=== PATIENT | female | born 1960 | race Caucasian/White ===

== ENCOUNTER 2020-04-20 10:18 | Outpatient (REF) | payer SELFPAY | END 2020-04-20 10:19 | disposition home or self-care (01) | LOC: HO.LAB 10:18 | PROVIDERS: Visit Provider Internal Medicine | DX: Z20.828 Contact with and (suspected) exposure to other viral communicable diseases (principal) | CPT/HCPCS: C9803; U0003 ==

== ENCOUNTER 2023-05-02 11:12 | Outpatient (AMB) | payer OTHER, SELFPAY ==
--- NOTE | 2023-05-02 11:22 | HO.NEPHOV_ITS ---
HPI HPI Comments History of Present Illness Details I had the privilege of seeing Fabiola in follow-up of her chronic kidney disease. She was accompanied by her daughter. She has history of cardiomyopathy and has an AICD in place. She had history of BRYANT when she had her AICD fired causing renal hypoperfusion. Her serum creatinine had gone back to baseline. She follows up with her slate roofer helper. She had been having stress incontinence. She denies any chest pain, shortness of breath, proximal nocturnal dyspnea, orthopnea, pedal edema, hematuria, dysuria, orthostatic symptoms, nausea, vomiting or diarrhea. She is compliant with her medications and diet. Her urine output is good. She follows up closely with her primary care physician and slate roofer helper. [facility] Medical History (Updated 05/02/23 @ 15:23 by Richar Rojas MD) Hyperkalemia Acute kidney injury Essential (primary) hypertension Chronic kidney disease, stage 3b Surgical History (Updated 05/02/23 @ 11:19 by Mari Brown MA) AICD (automatic cardioverter/defibrillator) present Family History Mother Heart disease Brother Heart disease Father Kidney disease Family/Other Kidney disease Social History (Updated 05/02/23 @ 11:30 by Mari Brown MA) Alcohol intake: never Patient Tobacco Use Status: Former Tobacco user Vital Signs 05/02/23 11:24 Height 5 ft 4 in Weight 260 lb BMI 44.6 BP 132/84 Blood Pressure Location Rt brachial Position Sitting Pulse 70 Pulse Source Pulse Oximeter Pulse Oximetry (%) 98 Oxygen Delivery Method Room Air Physical Exam Vital Signs: Last Vital Signs Pulse 70 05/02/23 11:24 BP 132/84 05/02/23 11:24 Pulse Ox 98 05/02/23 11:24 Oxygen Delivery Method Room Air 05/02/23 11:24 BMI result Body Mass Index 44.6 Const General: comfortable and no acute distress Orientation/consciousness: patient oriented x3 HEENT Head: Yes normocephalic Mouth: Normal oral and palatal mucosa present Eyes EOM: EOMs intact bilaterally Neck Neck: Yes supple Resp Auscultation: clear to auscultation bilaterally Cardio Jugular venous distension: no JVD Rate: regular rate GI Palpation (GI): Soft to palpation Auscultation: normal bowel sounds General: Yes no CVA tenderness Back/Spine/Pelvis Back: no CVA tenderness Skin General skin exam: no rashes or lesions noted Neuro General: patient oriented x3 and moves all extremities Extrem General: Yes no pedal edema Assessment & Plan Assessment & Plan (1) Chronic kidney disease, stage 3b: Code(s): N18.32 - Chronic kidney disease, stage 3b (2) Essential (primary) hypertension: Code(s): I10 - Essential (primary) hypertension (3) Hyperkalemia: Code(s): E87.5 - Hyperkalemia Plan Fabiola has stage IIIB CKD. She developed BRYANT which has resolved. She had myeloperoxidase antibody initially during her workup but was negative subsequently. Her blood pressure has been at goal. Her serum creatinine has been reasonably stable. She had fluctuation of his serum potassium but has not gone up recently. She needs to lose some weight. Her blood pressure is at goal on current medication regimen. She should be on a low-potassium diet. She should avoid nonsteroidal anti-inflammatory medications. I did not make any medication changes today. I ordered follow-up blood work. All questions answered. Time spent retrieving data, documentation and patient encounter 23 minutes. Follow-up given. Orders: Orders Complete Blood Count Auto Diff Today N18.32 - Chronic kidney disease, stage 3b Electrolytes Today N18.32 - Chronic kidney disease, stage 3b Calcium Today N18.32 - Chronic kidney disease, stage 3b Phosphorus Today N18.32 - Chronic kidney disease, stage 3b Vitamin D 25-OH Total Today N18.32 - Chronic kidney disease, stage 3b Ferritin Today N18.32 - Chronic kidney disease, stage 3b Blood Urea Nitrogen Today N18.32 - Chronic kidney disease, stage 3b Creatinine Today N18.32 - Chronic kidney disease, stage 3b Parathyroid Hormone Intact Today N18.32 - Chronic kidney disease, stage 3b IRON PROFILE Today N18.32 - Chronic kidney disease, stage 3b Coding Level of Care Code Est Pt Level 3 (68189) Diagnoses Chronic kidney disease, stage 3b N18.32 Essential (primary) hypertension I10 Hyperkalemia E87.5
[2023-05-02 11:24] VITALS: BP 132/84; PULSE 70; O2SAT 98; BMI 44.6
== END 2023-05-02 12:03 | disposition home or self-care (01) ==
PROVIDERS: PCP Physician Assistant; Visit Provider Internal Medicine Nephrology
DX: N18.32 Chronic kidney disease, stage 3b (principal); I10 Essential (primary) hypertension; E87.5 Hyperkalemia
CPT/HCPCS: 99213

== ENCOUNTER → 2023-05-02 11:12 | Outpatient (BNVA) | payer OTHER, SELFPAY | PROVIDERS: PCP Physician Assistant; Visit Provider Internal Medicine Nephrology | DX: I12.9 Hypertensive chronic kidney disease with stage 1 through stage 4 chronic kidney disease, or unspecified chronic kidney disease (principal); N18.32 Chronic kidney disease, stage 3b; E78.5 Hyperlipidemia, unspecified | CPT/HCPCS: 99212 ==

== ENCOUNTER 2023-08-28 13:05 | Outpatient (REF) | payer OTHER, SELFPAY ==
[2023-08-28 18:21] LABS: MANUAL DIFF FLAG NO
[2023-08-28 18:37] LABS: Basophils Absolute Auto 0.1 X10*3/uL (0.0-0.2); Eosinophils Absolute Auto 0.1 X10*3/uL (0.0-0.4); Eosinophils Percent Auto 2.4 % (0-4); Hematocrit 42.4 % (37.0-47.0); Hemoglobin 13.3 g/dl (12.0-16.0); Imm Gran Abs Auto 0.02 X10*3/uL (0.00-0.03); Imm Gran Pct Auto 0.3 % (0.0-0.4); Lymphocytes Absolute Auto 0.9 X10*3/uL (1.2-4.9); Lymphocytes Percent Auto 14.8 % (20-40); Mean Corpuscular HGB Conc 31.4 g/dl (31.0-35.0); Mean Corpuscular Hemoglobin 30.4 pg (27.0-33.0); Mean Platelet Volume 10.6 fL (9.4-12.3); Monocytes Absolute Auto 0.5 X10*3/uL (0.1-1.2); Monocytes Percent Auto 8.9 % (2-11); Neutrophils Absolute Auto 4.2 x10*3/uL (2.0-8.3); Neutrophils Percent Auto 72.6 % (45-73); Platelet Count 202 X10*3/uL (160-400); Red Blood Count 4.37 X10*6/uL (4.20-5.50); Red Cell Distribution Width 13.6 % (11.0-16.0); White Blood Count 5.8 X10*3/uL (4.8-10.8)
[2023-08-28 19:03] LABS: Anion Gap 9 (12-20); Blood Urea Nitrogen 29 mg/dL (9-16); Calcium 8.8 mg/dL (8.4-10.2); Carbon Dioxide 23 mmol/L (22-29); Chloride 111 mmol/L (96-108); Estimated Glomerular Filt Rate 24; Iron 98 mcg/dL (30-160); Percent Iron Saturation 30 % (15-50); Potassium 5.4 mmol/L (3.3-5.1); Sodium 138 mmol/L (135-145); Total Iron Binding Capacity 326 mcg/dL (228-428); Unsaturated Iron Binding 228 ug/dL
[2023-08-28 19:16] LABS: Ferritin 36 ng/mL (10-250); Vitamin D 25-OH Total 14.5 ng/mL (>30)
[2023-08-29 06:31] LABS: Parathyroid Hormone Intact 237.6 pg/mL (8.7-77.1)
== END 2023-08-28 13:06 | disposition home or self-care (01) ==
LOC: HO.HKASLDS 13:05
PROVIDERS: Visit Provider Internal Medicine Nephrology
DX: N18.32 Chronic kidney disease, stage 3b (principal)
CPT/HCPCS: 36415; 80051; 82306; 82310; 82565; 82728; 83540; 83970; 84100; 84520; 85025

== ENCOUNTER 2023-08-29 15:12 | Outpatient (AMB) | payer OTHER, SELFPAY ==
[2023-08-29 15:56] VITALS: BP 132/80; PULSE 70; O2SAT 97; BMI 46.9
--- NOTE | 2023-08-29 15:56 | HO.NEPHOV_ITS ---
HPI HPI Comments History of Present Illness Details I had the privilege of seeing Fabiola in follow-up of her chronic kidney disease. She has history of cardiomyopathy and has an AICD in place. She had history of BRYANT when she had her AICD fired causing renal hypoperfusion. Her serum creatinine had gone back to baseline. She follows up with her it field technician. She had been having stress incontinence. She denies any chest pain, shortness of breath, proximal nocturnal dyspnea, orthopnea, pedal edema, hematuria, dysuria, orthostatic symptoms, nausea, vomiting or diarrhea. She is compliant with her medications and diet. Her urine output is good. She follows up closely with her primary care physician and it field technician. [facility] Medical History (Updated 09/05/23 @ 21:20 by Richar Rojas MD) Hyperkalemia Acute kidney injury Essential (primary) hypertension Chronic kidney disease, stage 3b Surgical History AICD (automatic cardioverter/defibrillator) present Family History Mother Heart disease Brother Heart disease Father Kidney disease Family/Other Kidney disease Social History Alcohol intake: never Patient Tobacco Use Status: Former Tobacco user Vital Signs 08/29/23 15:56 Height 5 ft 4 in Weight 273 lb BMI 46.9 BP 132/80 Blood Pressure Location Rt brachial Position Sitting Pulse 70 Pulse Source Pulse Oximeter Pulse Oximetry (%) 97 Oxygen Delivery Method Room Air Physical Exam Vital Signs: Last Vital Signs Pulse 70 08/29/23 15:56 BP 132/80 08/29/23 15:56 Pulse Ox 97 08/29/23 15:56 Oxygen Delivery Method Room Air 08/29/23 15:56 BMI result Body Mass Index 46.9 Const General: comfortable and no acute distress Orientation/consciousness: patient oriented x3 HEENT Head: Yes normocephalic Mouth: Normal oral and palatal mucosa present Eyes EOM: EOMs intact bilaterally Neck Neck: Yes supple Resp Auscultation: clear to auscultation bilaterally Cardio Jugular venous distension: no JVD Rate: regular rate GI Palpation (GI): Soft to palpation Auscultation: normal bowel sounds General: Yes no CVA tenderness Back/Spine/Pelvis Back: no CVA tenderness Skin General skin exam: no rashes or lesions noted Neuro General: patient oriented x3 and moves all extremities Extrem General: Yes no pedal edema Assessment & Plan Assessment & Plan (1) Hyperkalemia: Code(s): E87.5 - Hyperkalemia (2) Essential (primary) hypertension: Code(s): I10 - Essential (primary) hypertension (3) Chronic kidney disease, stage 3b: Code(s): N18.32 - Chronic kidney disease, stage 3b (4) Secondary hyperparathyroidism (of renal origin): Code(s): N25.81 - Secondary hyperparathyroidism of renal origin (5) Vitamin D deficiency: Code(s): E55.9 - Vitamin D deficiency, unspecified Plan Fabiola has stage IIIB CKD. She had myeloperoxidase antibody initially during her workup but was negative subsequently. Her blood pressure has been at goal. Her serum creatinine has been reasonably stable. She had fluctuation of his serum potassium but has not gone up recently. She needs to lose some weight. Her blood pressure is at goal on current medication regimen. She should be on a low-potassium diet. She should avoid nonsteroidal anti-inflammatory medications. I started her on vitamin-D. She will need activated vitamin-D the near future. I encouraged her to maintain low-potassium diet. She may need Kayexalate once a week if her borderline hyperkalemia persists given history of recurrent cardiac arrhythmias. I did not make any other medication changes today. I ordered follow-up blood work. All questions answered. Orders: Orders Creatinine 08/29/23 E87.5 - Hyperkalemia, I10 - Essential (primary) hypertension, N18.32 - Chronic kidney disease, stage 3b Blood Urea Nitrogen 08/29/23 E87.5 - Hyperkalemia, I10 - Essential (primary) hypertension, N18.32 - Chronic kidney disease, stage 3b Electrolytes 08/29/23 E87.5 - Hyperkalemia, I10 - Essential (primary) hypertension, N18.32 - Chronic kidney disease, stage 3b Medications: New cholecalciferol (vitamin D3) 1,250 mcg PO QWEEK 4 caps 5RF Coding Level of Care Code Est Pt Level 4 (23467) Diagnoses Hyperkalemia E87.5 Essential (primary) hypertension I10 Chronic kidney disease, stage 3b N18.32 Secondary hyperparathyroidism (of renal origin) N25.81 Vitamin D deficiency E55.9 Results Reviewed Nephrology Results: Hgb 13.3 g/dl (12.0-16.0) 08/28/23 WBC 5.8 X10*3/uL (4.8-10.8) 08/28/23 Plt Count 202 X10*3/uL (160-400) 08/28/23 Sodium 138 mmol/L (135-145) 08/28/23 Potassium 5.4 mmol/L (3.3-5.1) H 08/28/23 Chloride 111 mmol/L (96-108) H 08/28/23 Carbon Dioxide 23 mmol/L (22-29) 08/28/23 BUN 29 mg/dL (9-16) H 08/28/23 Creatinine 2.11 mg/dL (0.5-1.4) H 08/28/23 Calcium 8.8 mg/dL (8.4-10.2) 08/28/23 Phosphorus 3.0 mg/dL (2.7-4.5) 08/28/23 PTH Intact 237.6 pg/mL (8.7-77.1) H 08/28/23
== END 2023-08-29 16:19 | disposition home or self-care (01) ==
LOC: HO.HKAS 15:13
PROVIDERS: PCP Physician Assistant; Visit Provider Internal Medicine Nephrology
DX: E87.5 Hyperkalemia (principal); I10 Essential (primary) hypertension; N18.32 Chronic kidney disease, stage 3b; N25.81 Secondary hyperparathyroidism of renal origin; E55.9 Vitamin D deficiency, unspecified
CPT/HCPCS: 99214

== ENCOUNTER → 2023-08-29 15:12 | Outpatient (BNVA) | payer OTHER, SELFPAY | PROVIDERS: PCP Physician Assistant; Visit Provider Internal Medicine Nephrology | DX: I10 Essential (primary) hypertension (principal); N18.32 Chronic kidney disease, stage 3b; N25.81 Secondary hyperparathyroidism of renal origin; E87.5 Hyperkalemia; E55.9 Vitamin D deficiency, unspecified; Z95.810 Presence of automatic (implantable) cardiac defibrillator | CPT/HCPCS: 99212 ==

== ENCOUNTER 2023-10-08 11:21 | Outpatient (REF) | payer OTHER, SELFPAY ==
[2023-10-08 19:10] LABS: Anion Gap 12 (12-20); Blood Urea Nitrogen 37 mg/dL (9-16); Carbon Dioxide 18 mmol/L (22-29); Chloride 116 mmol/L (96-108); Estimated Glomerular Filt Rate 20; Potassium 4.9 mmol/L (3.3-5.1); Sodium 141 mmol/L (135-145)
== END 2023-10-08 11:22 | disposition home or self-care (01) ==
LOC: HO.HKASLDS 11:21
PROVIDERS: Visit Provider Internal Medicine Nephrology
DX: E87.5 Hyperkalemia (principal); I12.9 Hypertensive chronic kidney disease with stage 1 through stage 4 chronic kidney disease, or unspecified chronic kidney disease; N18.32 Chronic kidney disease, stage 3b
CPT/HCPCS: 36415; 80051; 82565; 84520

== ENCOUNTER 2024-01-02 11:23 | Outpatient (AMB) | payer MEDICARE, SELFPAY ==
--- NOTE | 2024-01-02 11:50 | HO.NEPHOV_ITS ---
Vital Signs 01/02/24 11:51 Height 5 ft 4 in Weight 273 lb BMI 46.9 BP 110/74 Blood Pressure Location Lt brachial Position Sitting Pulse 70 Pulse Source Pulse Oximeter Pulse Oximetry (%) 95 Oxygen Delivery Method Room Air Intake Visit Reasons: CKD/ Conf w/daughter Back End Engineer Required: No Accompanied by: Self / Same As Patient Allergies codeine Allergy (Verified 01/02/24 11:53) Unknown gabapentin Allergy (Verified 01/02/24 11:53) Unknown isosorbide Allergy (Verified 01/02/24 11:53) Unknown lisinopril Allergy (Verified 01/02/24 11:53) Unknown oxycodone Allergy (Verified 01/02/24 11:53) Unknown HPI Comments Details: I had the privilege of seeing Fabiola in follow-up of her chronic kidney disease. She has history of cardiomyopathy and has an AICD in place. She had history of BRYANT when she had her AICD fired causing renal hypoperfusion. She follows up with her replanting machine crewman. She had been having stress incontinence. She denies any chest pain, shortness of breath, proximal nocturnal dyspnea, orthopnea, pedal edema, hematuria, dysuria, orthostatic symptoms, nausea, vomiting or diarrhea. She is compliant with her medications and diet. Her urine output is good. She follows up closely with her primary care physician and replanting machine crewman. [facility] Medical History (Updated 09/05/23 @ 21:20 by Richar Rojas MD) Hyperkalemia Acute kidney injury Essential (primary) hypertension Chronic kidney disease, stage 3b Surgical History AICD (automatic cardioverter/defibrillator) present Family History Mother Heart disease Brother Heart disease Father Kidney disease Family/Other Kidney disease Social History Alcohol intake: never Patient Tobacco Use Status: Former Tobacco user Review of Systems Const All systems reviewed & are unremarkable except as noted in HPI and below Physical Exam Vital Signs: Last Vital Signs Pulse 70 01/02/24 11:51 BP 110/74 01/02/24 11:51 Pulse Ox 95 01/02/24 11:51 Oxygen Delivery Method Room Air 01/02/24 11:51 BMI result Body Mass Index 46.9 Const General: comfortable and no acute distress Orientation/consciousness: patient oriented x3 HEENT Head: Yes normocephalic Mouth: Normal oral and palatal mucosa present Eyes EOM: EOMs intact bilaterally Neck Neck: Yes supple Resp Auscultation: clear to auscultation bilaterally Cardio Jugular venous distension: no JVD Rate: regular rate GI Palpation (GI): Soft to palpation Auscultation: normal bowel sounds General: Yes no CVA tenderness Back/Spine/Pelvis Back: no CVA tenderness Skin General skin exam: no rashes or lesions noted Neuro General: patient oriented x3 and moves all extremities Results Reviewed Nephrology Results: Hgb 13.3 g/dl (12.0-16.0) 08/28/23 WBC 5.8 X10*3/uL (4.8-10.8) 08/28/23 Plt Count 202 X10*3/uL (160-400) 08/28/23 Sodium 141 mmol/L (135-145) 10/08/23 Potassium 4.9 mmol/L (3.3-5.1) 10/08/23 Chloride 116 mmol/L (96-108) H 10/08/23 Carbon Dioxide 18 mmol/L (22-29) L 10/08/23 BUN 37 mg/dL (9-16) H 10/08/23 Creatinine 2.41 mg/dL (0.5-1.4) H 10/08/23 Calcium 8.8 mg/dL (8.4-10.2) 08/28/23 Phosphorus 3.0 mg/dL (2.7-4.5) 08/28/23 PTH Intact 237.6 pg/mL (8.7-77.1) H 08/28/23 Assessment & Plan Assessment & Plan (1) Vitamin D deficiency: Code(s): E55.9 - Vitamin D deficiency, unspecified Category: Medical (2) Secondary hyperparathyroidism (of renal origin): Code(s): N25.81 - Secondary hyperparathyroidism of renal origin Category: Medical (3) Hyperkalemia: Code(s): E87.5 - Hyperkalemia Category: Medical (4) Essential (primary) hypertension: Code(s): I10 - Essential (primary) hypertension Category: Medical (5) Chronic kidney disease, stage 3b: Code(s): N18.32 - Chronic kidney disease, stage 3b Category: Medical Plan Fabiola has stage IIIB CKD. She had myeloperoxidase antibody initially during her workup but was negative subsequently. Her blood pressure has been at goal. Her serum creatinine has been reasonably stable. She had fluctuation of his serum potassium but has not gone up recently. Repeat blood work ordered for today. She needs to lose some weight. Her blood pressure is at goal on current medication regimen. She should be on a low-potassium diet. She should avoid nonsteroidal anti-inflammatory medications. She is on vitamin-D. She will need activated vitamin-D the near future. I encouraged her to maintain low-potassium diet. She may need Kayexalate once a week if her borderline hyperkalemia persists given history of recurrent cardiac arrhythmias. I did not make any other medication changes today. All questions answered Orders: Orders Calcium 3 Months E55.9 - Vitamin D deficiency, unspecified, E87.5 - Hyperkalemia, I10 - Essential (primary) hypertension, N18.32 - Chronic kidney disease, stage 3b, N25.81 - Secondary hyperparathyroidism of renal origin Parathyroid Hormone Intact 3 Months E55.9 - Vitamin D deficiency, unspecified, E87.5 - Hyperkalemia, I10 - Essential (primary) hypertension, N18.32 - Chronic kidney disease, stage 3b, N25.81 - Secondary hyperparathyroidism of renal origin Vitamin D 25-OH Total 3 Months E55.9 - Vitamin D deficiency, unspecified, E87.5 - Hyperkalemia, I10 - Essential (primary) hypertension, N18.32 - Chronic kidney disease, stage 3b, N25.81 - Secondary hyperparathyroidism of renal origin Blood Urea Nitrogen Today E87.5 - Hyperkalemia, I10 - Essential (primary) hypertension, N18.32 - Chronic kidney disease, stage 3b Creatinine Today E87.5 - Hyperkalemia, I10 - Essential (primary) hypertension, N18.32 - Chronic kidney disease, stage 3b Electrolytes 3 Months E55.9 - Vitamin D deficiency, unspecified, E87.5 - Hyperkalemia, I10 - Essential (primary) hypertension, N18.32 - Chronic kidney disease, stage 3b, N25.81 - Secondary hyperparathyroidism of renal origin Blood Urea Nitrogen 3 Months E55.9 - Vitamin D deficiency, unspecified, E87.5 - Hyperkalemia, I10 - Essential (primary) hypertension, N18.32 - Chronic kidney disease, stage 3b, N25.81 - Secondary hyperparathyroidism of renal origin Creatinine 3 Months E55.9 - Vitamin D deficiency, unspecified, E87.5 - Hyperkalemia, I10 - Essential (primary) hypertension, N18.32 - Chronic kidney disease, stage 3b, N25.81 - Secondary hyperparathyroidism of renal origin Electrolytes Today E87.5 - Hyperkalemia, I10 - Essential (primary) hyperten claudia, N18.32 - Chronic kidney disease, stage 3b Coding Level of Care Code Est Pt Level 4 (08984) Diagnoses Vitamin D deficiency E55.9 Secondary hyperparathyroidism (of renal origin) N25.81 Hyperkalemia E87.5 Essential (primary) hypertension I10 Chronic kidney disease, stage 3b N18.32
[2024-01-02 11:51] VITALS: BP 110/74; PULSE 70; O2SAT 95; BMI 46.9
== END 2024-01-02 12:19 | disposition home or self-care (01) ==
PROVIDERS: PCP Physician Assistant; Visit Provider Internal Medicine Nephrology
DX: E55.9 Vitamin D deficiency, unspecified (principal); N25.81 Secondary hyperparathyroidism of renal origin; E87.5 Hyperkalemia; I10 Essential (primary) hypertension; N18.32 Chronic kidney disease, stage 3b
CPT/HCPCS: 99214

== ENCOUNTER → 2024-01-02 11:23 | Outpatient (BNVA) | payer MEDICARE, SELFPAY | PROVIDERS: PCP Physician Assistant; Visit Provider Internal Medicine Nephrology ==

== ENCOUNTER 2024-01-02 12:10 | Outpatient (REF) | payer MEDICARE, SELFPAY ==
[2024-01-02 18:12] LABS: Anion Gap 12 (12-20); Blood Urea Nitrogen 36 mg/dL (9-16); Carbon Dioxide 23 mmol/L (22-29); Chloride 111 mmol/L (96-108); Estimated Glomerular Filt Rate 19; Potassium 5.2 mmol/L (3.3-5.1); Sodium 141 mmol/L (135-145)
== END 2024-01-02 12:11 | disposition home or self-care (01) ==
LOC: HO.HKASLDS 12:10
PROVIDERS: Visit Provider Internal Medicine Nephrology
DX: I12.9 Hypertensive chronic kidney disease with stage 1 through stage 4 chronic kidney disease, or unspecified chronic kidney disease (principal); N18.32 Chronic kidney disease, stage 3b; E55.9 Vitamin D deficiency, unspecified; N25.81 Secondary hyperparathyroidism of renal origin; E87.5 Hyperkalemia
CPT/HCPCS: 36415; 80051; 82565; 84520; 99212

== ENCOUNTER 2024-04-23 14:04 | Outpatient (REF) | payer MEDICARE, SELFPAY ==
[2024-04-23 17:00] LABS: Anion Gap 12 (12-20); Blood Urea Nitrogen 48 mg/dL (9-16); Calcium 9.4 mg/dL (8.4-10.2); Carbon Dioxide 20 mmol/L (22-29); Chloride 113 mmol/L (96-108); Estimated Glomerular Filt Rate 20; Potassium 5.8 mmol/L (3.3-5.1); Sodium 139 mmol/L (135-145)
[2024-04-23 17:08] LABS: Vitamin D 25-OH Total 46.4 ng/mL (>30)
[2024-04-24 02:38] LABS: Parathyroid Hormone Intact 116.5 pg/mL (8.7-77.1)
== END 2024-04-23 14:05 | disposition home or self-care (01) ==
LOC: HO.HMGCLDS 14:04
PROVIDERS: PCP Physician Assistant; Visit Provider Internal Medicine Nephrology
DX: E55.9 Vitamin D deficiency, unspecified (principal); N25.81 Secondary hyperparathyroidism of renal origin; E87.5 Hyperkalemia; I12.9 Hypertensive chronic kidney disease with stage 1 through stage 4 chronic kidney disease, or unspecified chronic kidney disease; N18.32 Chronic kidney disease, stage 3b
CPT/HCPCS: 36415; 80051; 82306; 82310; 82565; 83970; 84520

== ENCOUNTER 2024-05-05 11:21 | Outpatient (AMB) | payer MEDICARE, SELFPAY ==
--- NOTE | 2024-05-05 11:38 | HO.NEPHOV_ITS ---
Vital Signs 05/05/24 11:39 Height 5 ft 4 in Weight 300 lb BMI 51.5 BP 118/72 Blood Pressure Location Lt brachial Position Sitting Pulse 70 Pulse Source Pulse Oximeter Pulse Oximetry (%) 96 Oxygen Delivery Method Room Air Intake Visit Reasons: CKD/ Conf Industrial Maintenance Electrician Required: No Accompanied by: Daughter Allergies codeine Allergy (Verified 05/05/24 11:39) Unknown gabapentin Allergy (Verified 05/05/24 11:39) Unknown isosorbide Allergy (Verified 05/05/24 11:39) Unknown lisinopril Allergy (Verified 05/05/24 11:39) Unknown oxycodone Allergy (Verified 05/05/24 11:39) Unknown HPI Comments Details: Fabiola in follow-up of her chronic kidney disease. She has history of ca rdiomyopathy and has an AICD in place. She had history of BRYANT when she had her AICD fired causing renal hypoperfusion. She follows up with her lobbyist. She had been having stress incontinence. She denies any chest pain, shortness of breath, proximal nocturnal dyspnea, orthopnea, pedal edema, hematuria, dysuria, orthostatic symptoms, nausea, vomiting or diarrhea. She is compliant with her medications and diet. Her urine output is good. Her renal functions are stable. She has been having hyperkalemia and is on K lowering medication. She follows up closely with her primary care physician and lobbyist. [facility] Medical History (Updated 09/05/23 @ 21:20 by Richar Rojas MD) Hyperkalemia Acute kidney injury Essential (primary) hypertension Chronic kidney disease, stage 3b Surgical History AICD (automatic cardioverter/defibrillator) present Family History Mother Heart disease Brother Heart disease Father Kidney disease Family/Other Kidney disease Social History Alcohol intake: never Patient Tobacco Use Status: Former Tobacco user Review of Systems Const All systems reviewed & are unremarkable except as noted in HPI and below Physical Exam Vital Signs: Last Vital Signs Pulse 70 05/05/24 11:39 BP 118/72 05/05/24 11:39 Pulse Ox 96 05/05/24 11:39 Oxygen Delivery Method Room Air 05/05/24 11:39 BMI result Body Mass Index 51.5 Const General: comfortable and no acute distress Orientation/consciousness: patient oriented x3 HEENT Head: Yes normocephalic Mouth: Normal oral and palatal mucosa present Eyes EOM: EOMs intact bilaterally Neck Neck: Yes supple Resp Auscultation: clear to auscultation bilaterally Cardio Jugular venous distension: no JVD Rate: regular rate GI Palpation (GI): Soft to palpation Auscultation: normal bowel sounds General: Yes no CVA tenderness Back/Spine/Pelvis Back: no CVA tenderness Skin General skin exam: no rashes or lesions noted Neuro General: patient oriented x3 and moves all extremities Extrem General: Yes no pedal edema Results Reviewed Nephrology Results: Hgb 13.3 g/dl (12.0-16.0) 08/28/23 WBC 5.8 X10*3/uL (4.8-10.8) 08/28/23 Plt Count 202 X10*3/uL (160-400) 08/28/23 Sodium 139 mmol/L (135-145) 04/23/24 Potassium 5.8 mmol/L (3.3-5.1) H 04/23/24 Chloride 113 mmol/L (96-108) H 04/23/24 Carbon Dioxide 20 mmol/L (22-29) L 04/23/24 BUN 48 mg/dL (9-16) H 04/23/24 Creatinine 2.39 mg/dL (0.5-1.4) H 04/23/24 Calcium 9.4 mg/dL (8.4-10.2) 04/23/24 Phosphorus 3.0 mg/dL (2.7-4.5) 08/28/23 PTH Intact 116.5 pg/mL (8.7-77.1) H 04/23/24 Assessment & Plan Assessment & Plan (1) Chronic kidney disease, stage 3b: Code(s): N18.32 - Chronic kidney disease, stage 3b Category: Medical (2) Essential (primary) hypertension: Code(s): I10 - Essential (primary) hypertension Category: Medical (3) Hyperkalemia: Code(s): E87.5 - Hyperkalemia Category: Medical (4) Secondary hyperparathyroidism (of renal origin): Code(s): N25.81 - Secondary hyperparathyroidism of renal origin Category: Medical Plan Fabiola has stage IIIB CKD. She had myeloperoxidase antibody initially during her workup but was negative subsequently. Her blood pressure has been at goal. Her serum creatinine has been reasonably stable. She had fluctuation of his serum potassium but has gone up recently. She should continue kionex once a week and should remain on low K diet. She needs to lose some weight. Her blood pressure is at goal on current medication regimen. She should be on a low- potassium diet. She should avoid nonsteroidal anti-inflammatory medications. She is on vitamin-D. She will need activated vitamin-D the near future. I did not make any other medication changes today. All questions answered Orders: Orders Creatinine 2 Months E87.5 - Hyperkalemia, I10 - Essential (primary) hypertension, N18.32 - Chronic kidney disease, stage 3b, N25.81 - Secondary hyperparathyroidism of renal origin Blood Urea Nitrogen 2 Months E87.5 - Hyperkalemia, I10 - Essential (primary) hypertension, N18.32 - Chronic kidney disease, stage 3b, N25.81 - Secondary hyperparathyroidism of renal origin Electrolytes 1 Month E87.5 - Hyperkalemia, N18.32 - Chronic kidney disease, stage 3b Blood Urea Nitrogen 1 Month E87.5 - Hyperkalemia, N18.32 - Chronic kidney disease, stage 3b Electrolytes 2 Months E87.5 - Hyperkalemia, I10 - Essential (primary) hypertension, N18.32 - Chronic kidney disease, stage 3b, N25.81 - Secondary hyperparathyroidism of renal origin Creatinine 1 Month E87.5 - Hyperkalemia, N18.32 - Chronic kidney disease, stage 3b Coding Level of Care Code Est Pt Level 4 (52941) Diagnoses Chronic kidney disease, stage 3b N18.32 Essential (primary) hypertension I10 Hyperkalemia E87.5 Secondary hyperparathyroidism (of renal origin) N25.81
[2024-05-05 11:39] VITALS: BP 118/72; PULSE 70; O2SAT 96; BMI 51.5
== END 2024-05-05 12:13 | disposition home or self-care (01) ==
PROVIDERS: PCP Physician Assistant; Visit Provider Internal Medicine Nephrology
DX: N18.32 Chronic kidney disease, stage 3b (principal); I10 Essential (primary) hypertension; E87.5 Hyperkalemia; N25.81 Secondary hyperparathyroidism of renal origin
CPT/HCPCS: 99214

== ENCOUNTER → 2024-05-05 11:21 | Outpatient (BNVA) | payer MEDICARE, SELFPAY | PROVIDERS: PCP Physician Assistant; Visit Provider Internal Medicine Nephrology | DX: I12.9 Hypertensive chronic kidney disease with stage 1 through stage 4 chronic kidney disease, or unspecified chronic kidney disease (principal); N18.32 Chronic kidney disease, stage 3b; E87.5 Hyperkalemia; N17.9 Acute kidney failure, unspecified; N25.81 Secondary hyperparathyroidism of renal origin; Z95.810 Presence of automatic (implantable) cardiac defibrillator | CPT/HCPCS: 99212 ==

== ENCOUNTER 2024-07-22 10:14 | Outpatient (REF) | payer MEDICARE, SELFPAY ==
--- OUTSIDE RECORDS SUMMARY | 2024-07-22 10:45 | XMS_ITS | Encounter Summary ---
Author Organization [facility] Address [address] [place] [address] Care Team Providers Care Route Driver Name Role Phone Nilay Marquez Primary Care Provider [phone] Encounter Details Date Type Department Care Team (Late st Contact Info) Description 06/30/2024 11:25 AM EST Ancillary Procedure [facility] [address] [facility] [address] [place] [phone] Social History Tobacco Use Types Packs/Day Years Used Date Smoking Tobacco: Former Cigarettes Smokeless Tobacco: Never Alcohol Use Standard Drinks/Week Comments Yes 0 (1 standard drink = 0.6 oz pur e alcohol) Comments Unknown Sex and Gender Information Value Date Recorded Sex Assigned at Not on file Legal Sex Female 10:44 AM EST Gender Identity Not on file Sexual Orientation Not on file documented as of this encounter Plan of Treatment Upcoming Encounters Date Type Department Care Team (Late st Contact Info) Description 10/21/2024 11:00 AM EDT Ancillary Procedure [facility] [address] [facility] [address] [place] [address] 11/13/2024 10:30 AM EDT Office Visit Pulmonolgy - [place] 175 [facility] 200 [place] [phone] Marguerite Jimenez NP 175 [facility] 200 [place] [address] documented as of this encounter Procedures Procedure Name Priority Date/Time Associated Diagnosis Comments CARDIAC DEVICE CHECK- REMOTE- MURJ Routine 06/30/2024 11:21 AM EST documented in this encounter Results * Cardiac device check - Remote- MURJ (06/30/2024 11:21 AM EST) Date Time Interrogation Session [id number] CV DEVICE CHECK Type Interrogation Session Remote Scheduled CV DEVICE CHECK Implantable Pulse Generator Inclusion Special Educator [employer] CV DEVICE CHECK Implantable Pulse Generator Type ICD CV DEVICE CHECK Implantable Pulse Generator Model [id number] Lawrence(TM) CV DEVICE CHECK Implantable Pulse Generator Serial Number [id number] CV DEVICE CHECK Implantable Pulse Generator Implant Date [id number] CV DEVICE CHECK Battery Remaining Percentage 35.00 CV DEVICE CHECK Battery Remaining Longevity 32.0 CV DEVICE CHECK Battery Voltage 2.950 CV D EVICE CHECK Battery SALESPERSON [employer] [place] Trigger 2.620 CV DEVICE CHECK Battery Status Middle of Service CV DEVICE CHECK Capacitor Charge Time 8.400 CV DEVICE CHECK Dez Statistic RA Percent Paced 96.00 CV DEVICE CHECK Dez Statistic RV Percent Paced 1.00 CV DEVICE CHECK Atrial Tachy Statistic AT/AF [place] Percent 1.00 CV DEVICE CHECK Lead Channel Sensing Intrinsic Amplitude 3.300 CV DEVICE CHECK Lead Channel Setting Sensing Sensitivity 0.30 CV DEVICE CHECK Lead Channel Impedance Value 350 CV DEVICE CHECK Lead Channel Pacing Threshold Amplitude 0.875 CV DEVICE CHECK Lead Channel Pacing Threshold Pulse Width 0.5 CV DEVICE CHECK Lead Channel RA Pacing Threshold Date 2024-06-27 CV DEVICE CHECK Lead Channel Setting Pacing Amplitude 1.875 CV DEVICE CHECK Lead Channel Setting Pacing Pulse Width 0.5 CV DEVICE CHECK Lead Channel Sensing Intrinsic Amplitude 12.000 CV DEVICE CHECK Lead Channel Setting Sensing Sensitivity 0.50 CV DEVICE CHECK Lead Channel Impedance Value 390 CV DEVICE CHECK Lead Channel Pacing Threshold Amplitude 1.000 CV DEVICE CHECK Lead Channel Pacing Threshold Pulse Width 0.5 CV DEVICE CHECK Lead Channel RV Pacing Threshold Date 2024-06-27 CV DEVICE CHECK Lead Channel Setting Pacing Amplitude 1.250 CV DEVICE CHECK Lead Channel Setting Pacing Pulse Width 0.5 CV DEVICE CHECK Dez Setting Mode (NBG Code) DDDR CV DEVICE CHECK Dez Setting Lower Rate Limit 70 CV DEVICE CHECK Dez Setting AT Mode Switch Rate 180 CV DEVICE CHECK Dez Setting Maximum Tracking Rate 130 CV DEVICE CHECK Dez Setting Maximum Sensor Rate 130 CV DEVICE CHECK Dez Setting PAV Delay 200 CV DEVICE CHECK Dez Setting RONALD Delay 150 CV DEVICE CHECK Therapy Statistic Recent Shocks Delivered 0 CV DEVICE CHECK Therapy Statistic Recent Shocks Aborted 0 CV DEVICE CHECK Therapy Statistic Recent ATP Delivered 5 CV DEVICE CHECK Shock Measured Impedance 86 CV DEVICE CHECK Zone Setting Type Category VT CV DEVICE CHECK Rate 150 CV DEVICE CHECK Therapies 3 x Burst+Scan,25.0J, 36.0J,40.0J x 2 CV DEVICE CHECK Zone Setting Status On CV DEVICE CHECK Zone ID 1 CV DEVICE CHECK Zone Setting Type Category VT CV DEVICE CHECK Rate 182 CV DEVICE CHECK Therapies 3 x Burst+Scan,25.0J, 36.0J,40.0J x 2 CV DEVICE CHECK Zone Setting Status On CV DEVICE CHECK Zone ID 2 CV DEVICE CHECK Zone Setting Type Category VF CV DEVICE CHECK Rate 214 CV DEVICE CHECK Therapies 36.0J,36.0J,40.0J x 4 CV DEVICE CHECK Zone Setting Status On CV DEVICE CHECK Zone ID 3 CV DEVICE CHECK Date of Service 2024-08-28 CV DEVICE CHECK Anatomical Region Laterality Modality Device Interroga tion 06/27/2024 2:00 AM EST Impressions 06/30/2024 11:18 AM EST Appropriate VT Therapy: Successful * Stored EGMs are consistent with or suggestive of Ventricular Tachycardia * Total episodes: 1 new * Number of ATP therapy: 1 new VT with ATP 38 beats * Number of shocks delivered: 0 Additional Notes: Noted on 06/25/24 previous episode of VT Narrative Procedure Note Ivelisse Simons PA - 06/30/2024 IMPRESSION: Appropriate VT Therapy: Successful * Stored EGMs are consistent with or suggestive of VentricularTachycardia * Total episodes: 1 new * Number of ATP therapy: 1 new VT with ATP 38 beats * Number of shocks delivered: 0 Additional Notes: Noted on 06/25/24 previous episode of VT Ivelisse GONZALEZ CV IMPLANTABLE CARDIAC DEVICE IL OCEDURES Final Result documented in this encounter Visit Diagnoses Not on filedocumented in this encounter Care Teams Route Driver Relationship Specialty Start Date End Date Nilay Marquez PA [address] [place] [address] PCP - General Internal Medicine 04/10/21 documented as of this encounter
--- OUTSIDE RECORDS SUMMARY | 2024-07-22 10:45 | XMS_ITS | Clinical Summary ---
Author Organization [facility] Address [address] [place] [address] Phone Care Team Providers Care Bank Accountant Name Role Phone Nilay Marquez MD Primary Care Provider [phone] Allergies Active Allergy Reactions Criticality Noted Date Comments Codeine Nausea And Vomiting,Other (see comments) High 03/23/2020 Gabapentin Other (see comments) Low 08/10/2021 Other reaction(s): Makes bones hurt Isosorbide Nitrate Other (see comments) Medium 022 Lisinopril 07/10/2021 Warning Oxycodone 08/10/2021 Other reaction(s): vomiting Medications atorvastatin (LIPITOR) 40 MG tablet Take 1 tablet by mouth 1 (one) time each day Active omeprazole (PriLOSEC) [address] capsule Take 1 capsule by mouth 1 (one) time each day 9 Active Symbicort 80-4.5 MCG/ACT inhaler if needed 1 Active albuterol HFA (PROVENTIL HFA;VENTOLIN HFA) 108 (90 Base) MCG/ACT inhaler Inhale 2 puffs 1 Active mexiletine (MEXITIL) 200 MG capsule Take 400 mg by mouth in the morning and 400 mg in the evening. 1 Active hydrALAZINE 50 MG tablet Take 50 mg by mouth in the morning and 50 mg at noon and 50 mg in the evening. 2 Active levothyroxine (SYNTHROID, LEVOTHROID) 125 MCG tablet Take 250 mcg by mouth 1 (one) time each day 2 Active meclizine (ANTIVERT) 25 MG tablet Take 1 tablet by mouth if needed 2 Active LORazepam (ATIVAN) 0.5 MG tablet Take 1 tablet by mouth if needed 2 Active furosemide (LASIX) 20 MG tablet if needed 2 Active ondansetron (ZOFRAN) 4 MG tablet Take 4 mg by mouth every 8 (eight) hours if needed for nausea or vomiting Active propranolol (INDERAL) 60 MG tablet Take 60 mg by mouth in the morning and 60 mg in the evening and 60 mg before bedtime. With 40mg . Active isosorbide mononitrate (IMDUR) 60 MG 24 hr tablet Take 60 mg by mouth 1 (one) time each day Do not crush or chew. 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 Stage 3b chronic kidney disease 03/27/2021 Hypertension 03/27/2021 Acute nontraumatic kidney injury 08/22/2020 Chronic kidney disease 08/22/2020 Overview (08/22/2020): Sees nephrology Hypertensive disorder 08/22/2020 Hypertensive renal disease 08/22/2020 Resolved Problems Problem Noted Date Diagnosed Date Resolved Date Chronic obstructive pulmonary disease 08/10/2021 08/10/2021 Heart failure with reduced ejection fraction 08/10/2021 History of cardiac arrhythmia 08/10/2021 08/10/2021 Hypothyroidism 08/10/2021 08/10/2021 Obstructive sleep apnea syndrome 08/10/2021 08/10/2021 Severe obesity 08/10/2021 08/10/2021 Hypercholesterolemia 08/22/2020 022 Osteoarthritis 08/22/2020 08/10/2021 Hyperkalemia 08/22/2020 11/22/2021 Allergic rhinitis 07/11/2020 11/22/2021 Immunizations Name Administration Dates Next Due Moderna SARS-COV-2 10/24/2020,09/26/2020 Family History Medical History Relation Comments Kidney disease Father Heart disease Sibling Relation Status Comments Father Mother Alive Sibling Social History Tobacco Use Types Packs/Day Years Used Date Smoking Tobacco: Former Smokeless Tobacco: Former Tobacco Cessation:Counseling Given: Not Answered Alcohol Use Standard Drinks/Week Comments Yes 0 (1 standard drink = 0.6 oz pure alcohol) Alcoholic Drinks/day: Occasional social drink Comments Unknown Sex and Gender Information Value Date Recorded Sex Assigned at Not on file Legal Sex Female 4:44 PM EST Gender Identity Not on file Sexual Orientation Not on file Last Filed Vital Signs Vital Sign Reading Time Taken Comments Blood Pressure 116/78 01/24/2023 4:23 PM EDT Pulse 69 01/24/2023 4:23 PM EDT Temperature - - Respiratory Rate - - Oxygen Saturation 96% 10/30/2022 4:56 PM EDT Inhaled Oxygen Concentration - - Weight 113 kg (250 lb) 01/24/2023 4:23 PM EDT Height 165.1 cm (5' 5 ) 12/22/2019 12:00 PM EDT Body Mass Index 41.6 12/22/2019 12:00 PM EDT Plan of Treatment Health Maintenance Due Date Last Done Comments Breast Cancer Screening 1960 Pneumococcal Vaccine: 65+ Ye ars (1 of 2 - PCV) 1966 Pneumococcal Vaccine: Pediat rics (0 to 5 Years) and At-Risk Patients (6 to 64 Years) (1 of 2 - PCV) 1966 Colorectal Cancer Screening: Annual FOBT 09/21/2007 Colorectal Cancer Screening: Colonoscopy 09/21/2007 Colorectal Cancer Screening: Sigmoidoscopy 09/21/2007 Influenza Vaccine (#1) 2024 Hepatitis B Vaccine Aged Out No longe r eligible based on patient's age to complete this topic Insurance [facility] MEDICAID [facility] Care Teams Bank Accountant Relationship Specialty Start Date End Date Nilay Marquez MD [address] [place] [id number] PCP - General Physician Clinical Trial Leader 08/22/20
--- OUTSIDE RECORDS SUMMARY | 2024-07-22 10:45 | XMS_ITS | Encounter Summary ---
Author Organization [facility] Address [address] [place] [address] Care Team Providers Care Diffusion Furnace Operator Name Role Phone Nilay Marquez Primary Care Provider [phone] Encounter Details Date Type Department Care Team (Late Contact Info) Description 07/02/2024 Telephone [facility] Cardiology [facility] [address] [facility] [address] [place] [phone] Marcie Singleton MA Social History Tobacco Use Types Packs/Day Years [...] on file documented as of this encounter Progress Notes * Marcie Singleton MA - 07/02/2024 12:32 PM EST Per Cheryl Moreira [facility] order entered. documented in this encounter Plan of Treatment Upcoming Encounters Date Type Department Care Team (Late st Contact Info) Description 10/21/2024 11:00 AM EDT Ancillary Procedure [facility] - [address] [place] [phone] 11/13/2024 10:30 AM EDT Office Visit Pulmonol - [place] [address] [facility] [address] [place] [phone] Marguerite Jimenez, KADEN 175 [facility] 200 [place] [address] Scheduled Orders Name Type Priority Associated Diagnoses Orde r Schedule Comprehensive metabolic panel Lab Routine HFrEF (heart failure with reduced ejection fraction) (CMS/[facility]) 1 Occurrences starting 07/02/2024 until 07/02/2025 documented as of this encounter Visit Diagnoses Diagnosis HFrEF (heart failure with reduced ejection fraction) (CMS/[facility]ER[facility])- Primary documented in this encounter Care Teams Diffusion Furnace Operator Relationship Specialty Start Date End Date Nilay Marquez PA [address] [place] [address] PCP - General Internal Medicine 04/10/21 documented as of this encounter
--- OUTSIDE RECORDS SUMMARY | 2024-07-22 10:45 | XMS_ITS | Encounter Summary ---
Author Organization [facility] Address [address] [place] [address] Care Team Providers Care Property Valuer Name Role Phone Nilay Marquez Primary Care Provider [phone] Encounter Details Date Type Department Care Team (Late st Contact Info) Description 06/29/2024 10:15 AM EST Lab Draw Station - [address] [place] [phone] Ventricular tachycardia (CMS/HCC); care home current use of amiodarone Social History Tobacco Use Types Packs/Day Years [...] Progress Notes * Marcie Singleton MA - 06/29/2024 10:15 AM EST CMP order entered. documented in this encounter Plan of Treatment Upcoming Encounters Date Type Department Care Team (Late st Contact Info) Description 10/21/2024 11:00 AM EDT Ancillary Procedure [facility] - [address] [place] [phone] 11/13/2024 10:30 AM EDT Office Visit Pulmonolgy - [place] 175 [facility] [address] [place] [phone] Marguerite Jimenez, KADEN 175 [facility] [address] [place] [address] documented as of this encounter Procedures Procedure Name Priority Date/Time Associated Diagnosis Comments THYROID STIMULATING HORMONE WITH REFLEX TO FREE T4 AND FREE T3 Routine 06/29/2024 10:12 AM EST termite treater current use of amiodarone MAGNESIUM Routine 06/29/2024 10:12 AM EST Ventricular tachycardia (CMS/HCC) COMPREHENSIVE METABOLIC PANEL Routine 06/29/2024 10:12 AM EST Ventricular tachycardia (CMS/HCC) termite treater current use of amiodarone documented in this encounter Results * Magnesium (06/29/2024 10:12 AM EST) Magnesium 2.4 1.9 - 2.6 mg/dL LAB CHEMISTRY METHOD 06/29/2024 3:52 PM EST [facility] Blood Venous blood specimen / Unknown Venipuncture / Unknown 06/29/2024 10:12 AM EST 06/29/2024 10:12 AM EST Cheryl Moreira CRANE OPERATOR CAB LAB BLOOD ORDERABLES Final R esult [facility] [address] [place] [address], * Thyroid stimulating hormone with reflex to free t4 and free t3 (06/29/2024 10:12 AM EST) TSH 1.26 0.40 - 4.00 mcIU/mL LAB CHEMISTRY METHOD 06/29/2024 3:59 PM EST [facility] Blood Venous blood specimen / Unknown Venipuncture / Unknown 06/29/2024 10:12 AM EST 06/29/2024 10:12 AM EST us Cheryl Moreira NP LAB BLOOD ORDERABLES Final R esult [facility] [address] [place] [address], [place] [phone] * (ABNORMAL) Comprehensive metabolic panel (06/29/2024 10:12 AM EST) Sodium 143 133 - 145 mmol/L LAB CHEMISTRY METHOD 06/29/2024 4:00 PM [facility] Potassium 5.0 3.5 - 5.5 mmol/L LAB CHEMISTRY METHOD 06/29/2024 4:00 PM [facility] Chloride 117(H) 96 - 110 mmol/L LAB CHEMISTRY METHOD 06/29/2024 4:00 PM [facility] CO2 22 21 - 32 mmol/L LAB CHEMISTRY METHOD 06/29/2024 4:00 PM [facility] Anion Gap 4 3 - 11 LAB CHEMISTRY METHOD 06/29/2024 4:00 PM [facility] Glucose 97 70 - 100 mg/dL LAB CHEMISTRY METHOD 06/29/2024 4:00 PM [facility] BUN 48(H) 5 - 25 mg/dL LAB CHEMISTRY METHOD 06/29/2024 4:00 PM [facility] Creatinine 2.86(H) 0.50 - 1.10 mg/dL LAB CHEMISTRY METHOD 06/29/2024 4:00 PM [facility] eGFR 18(L) >=60 mL/min/1. 73m2 LAB CHEMISTRY METHOD 06/29/2024 4:00 PM [facility] Comment:Calculation based on the??Chronic Kidney Disease Epidemiology Collaboration (CKD-EPI) equation refit??without adjustment for race. BUN/Creatinine Ratio 16.8 LAB CHEMISTRY METHOD 06/29/2024 4:00 PM [facility] Calcium 8.9 8.5 - 10.5 mg/dL LAB CHEMISTRY METHOD 06/29/2024 4:00 PM [facility] AST (SGOT) 65(H) 10 - 42 unit/L LAB CHEMISTRY METHOD 06/29/2024 4:00 PM [facility] ALT (SGPT) 199(H) 10 - 60 unit/L LAB CHEMISTRY METHOD 06/29/2024 4:00 PM [facility] Alkaline Phosphatase 85 42 - 121 unit/L LAB CHEMISTRY METHOD 06/29/2024 4:00 PM [facility] Total Protein 6.1 6.0 - 8.0 g/dL LAB CHEMISTRY METHOD 06/29/2024 4:00 PM [facility] Albumin 3.3 3.2 - 5.0 g/dL LAB CHEMISTRY METHOD 06/29/2024 4:00 PM [facility] Total Bilirubin 0.5 0.0 - 1.4 mg/dL LAB CHEMISTRY METHOD 06/29/2024 4:00 PM [facility] Blood Venous blood specimen / Unknown Venipuncture / Unknown 06/29/2024 10:12 AM EST 06/29/2024 10:12 AM EST Cheryl Moreira CRANE OPERATOR CAB LAB BLOOD ORDERABLES Final R esult [facility] [address] [place] [address], documented in this encounter Visit Diagnoses Diagnosis Ventricular tachycardia (CMS/HCC) Paroxysmal ventricular tachycardia care home current use of amiodarone documented in this encounter Care Teams Property Valuer Relationship Specialty Start Date End Date Nilay Marquez PA [address] [place] [address] PCP - General Internal Medicine 04/10/21 documented as of this encounter
--- OUTSIDE RECORDS SUMMARY | 2024-07-22 10:45 | XMS_ITS | Clinical Summary ---
Author Organization [address] [place] [address] Address [address] [place] [address] Phone Care Team Providers Care Medication Coordinator Name Role Phone Nilay Marquez Primary Care Provider [phone] Allergies Active Allergy Reactions Criticality Noted Date Comments Codeine Nausea And Vomiting 01/30/2021 Gabapentin Muscular Issues 01/30/2021 Isosorbide Nausea And Vomiting High 11/06/2021 CHEST PAIN Other reaction(s): Other (See Comments), Other (see comments), Unknown, Unknown/Patient and Family Unable to Define Isosorbide Dinitrate Nausea And Vomiting 2023 Lisinopril 07/10/2021 Warning Oxycodone 06/21/2021 Medications propranoloL (INDERAL) 40 mg tablet Take 1 tablet (40 mg total) by mouth. 3 Active propranoloL (INDERAL) 60 mg tablet Take 1 tablet (60 mg total) by mouth. 3 Active hydrALAZINE (APRESOLINE) 50 mg tablet Take 1 tablet (50 mg total) by mouth. 3 Active atorvastatin (LIPITOR) 40 mg tablet Take 1 tablet (40 mg total) by mouth. Active isosorbide mononitrate (IMDUR) 60 mg 24 hr tablet Take 1 tablet (60 mg total) by mouth 1 (one) time each day. 3 Active levothyroxine (SYNTHROID, LEVOTHROID) 175 mcg tablet Take 1 tablet (175 mcg total) by mouth 1 (one) time each day. 3 Active mexiletine (MEXITIL) 200 mg capsule Take 2 capsules (400 mg total) by mouth. 3 Active omeprazole (PriLOSEC) [address] capsule Take 1 capsule (40 mg total) by mouth. Active amiodarone (PACERONE) 200 mg tablet Take 1 tablet by mouth once daily 90 tablet 3 4 Active sodium polystyrene (KAYEXALATE) powder Take 30 g by mouth 1 (one) time. 4 Active Tylenol Extra Strength 500 mg tablet Take 2 tablets (1,000 mg total) by mouth every 8 (eight) hours if needed for moderate pain. Patient take 2 tab as needed for pain [id number] PRT 4 Active Active Problems Problem Noted Date Diagnosed Date History of ventricular tachycardia 08/02/2023 COPD type A 02/06/2023 Nocturnal hypoxia 08/04/2021 Overview (08/02/2023): Overnight oximetry on 07/23/2021 on NIV: 1. Lowest oxygen 81% 2. Oxygen level under 88% 6.5 minutes. 3. Basal oxygen 94%. No supplemnetal oxygen needed. HFrEF (heart failure with reduced ejection fract ion) 07/23/2021 Severe obesity 07/23/2021 Hypertension 06/21/2021 Non-ischemic cardiomyopathy 06/21/2021 Overview (08/02/2023): 04/06/21 Cath @ [facility] with Dr. Price - Findings consistent with non-ischemic cardiomyopathy of unclear chronicity and VT. Continue anti-rhythmic therapy and consider ICD. Syncope 06/21/2021 Ventricular tachycardia 06/21/2021 Overview (08/02/2023): 04/21/21 Device Implant @ [facility] with Dr. Parker - [employer] Dual Chamber AICD Anxiety 01/30/2021 CKD (chronic kidney disease) 01/30/2021 High cholesterol 01/30/2021 Hypothyroidism 01/30/2021 Osteoarthritis of both knees 01/30/2021 Encounters Date Type Department Care Team Description 07/02/2024 Telephone [facility] Cardiology [facility] [address] [place] [address] Marcie Singleton MA 06/30/2024 11:25 AM EST Ancillary Procedure [facility] Cardiology [facility] [address] [place] [address] 06/29/2024 10:15 AM EST Lab Draw Station - [address] [place] [address] Ventricular tachycardia (CMS/HCC); continuous churn buttermaker current use of amiodarone 06/25/2024 4:25 PM EST Ancillary Procedure [facility] Cardiology [facility] [address] [place] [address] 06/25/2024 Telephone [facility] Cardiology [facility] [address] [place] [address] Cheryl Moreira NP 06/12/2024 11:35 AM EST Ancillary Procedure [facility] Cardiology [facility] [address] [place] [address] 06/11/2024 Telephone [facility] Cardiology [facility] [address] [place] [address] Cheryl Moreira NP 06/02/2024 8:10 AM EST Ancillary Procedure [facility] Cardiology [facility] [address] [place] [address] 06/01/2024 Telephone [facility]olgy - [place] [address] [place] [address] Mei Shea [place] DME request (CPAP supplies/) 05/20/2024 3:20 PM EST Ancillary Procedure [facility] Cardiology [facility] [address] [place] [address] 05/15/2024 10:10 AM EST Office Visit Pulmonolgy - [place] [address] [place] [address] Marguerite Jimenez NP Pulmonary emphysema, unspecified emphysema type (CMS/HCC) (Primary Dx); Nocturnal hypoxia; Non-ischemic cardiomyopathy (CMS/HCC); HFrEF (heart failure with reduced ejection fraction) (CMS/HCC); Severe obesity (CMS/HCC) 04/23/2024 12:40 PM EST Office Visit [facility] - [address] [facility] [address] [place] [phone] Cheryl Moreira NP Ventricular tachycardia (CMS/HCC) (Primary Dx); continuous churn buttermaker current use of amiodarone; HFrEF (heart failure with reduced ejection fraction) (CMS/HCC) from Last 3 Months Surgical History Surgery Date Site/Laterality Comments CARDIAC CATHETERIZATION Medical History Medical History Date Comments Anxiety Hyperlipidemia Hypercapnic respiratory failure (CMS/HCC) Hypothyroidism Syncope Cardiomyopathy (CMS/HCC) Hypertension Ventricular tachycardia (CMS/HCC) Chronic kidney disease CHF (congestive heart failure) (CMS/HCC) Family History Medical History Relation Name Comments Heart attack Mother Relation Name Status Comments Mother Social History Tobacco Use Types Packs/Day Years Used Date Smoking Tobacco: Former Cigarettes Smokeless Tobacco: Never Tobacco Cessation:Counseling Given: Not Answered Alcohol Use Standard Drinks/Week Comments Yes 0 (1 standard drink = 0.6 oz pur e alcohol) Comments Unknown Sex and Gender Information Value Date Recorded Sex Assigned at Not on file Legal Sex Female 10:44 AM EST Gender Identity Not on file Sexual Orientation Not on file Obstetrics History Last Filed Vital Signs Vital Sign Reading Time Taken Comments Blood Pressure 138/76 05/15/2024 10:21 AM EST Pulse 70 05/15/2024 10:21 AM EST Temperature 36.2 ??C (97.1 ??F) 05/15/2024 1 0:21 AM EST Respiratory Rate 18 05/15/2024 10:2 1 AM EST Oxygen Saturation 94% 05/15/2024 10: 21 AM EST Inhaled Oxygen Concentration - - Weight 136 kg (300 lb) 04/23/2024 12:42 PM EST pt refused scale, told me 300lbs Height 162.6 cm (5' 4 ) 04/23/2024 12:4 2 PM EST Body Mass Index 51.49 04/23/2024 12:42 PM EST Plan of Treatment Upcoming Encounters Date Type Department Care Team (Late st Contact Info) Description 10/21/2024 11:00 AM EDT Ancillary Procedure [facility] - [address] [place] [address] 11/13/2024 10:30 AM EDT Office Visit Pulmonolgy - [place] [address] [facility] [address] [place] [phone] Marguerite Jimenez, KADEN [address] [facility] [address] [place] [address] Health Maintenance Due Date Last Done Comments Breast Cancer Screening 1960 DTaP,Tdap,and Td Vaccines (1 - Tdap) 1977 Pneumococcal Vaccine: 50+ Years (1 of 2 - PCV) 1977 Pneumococcal Vaccine: Pediatrics (0 to 5 Years) and At-Risk Patients (6 to 64 Years) (1 of 2 - PCV) 1977 Cervical Cancer Screening: Pap Smear 09/21/1979 Zoster Vaccines (1 of 2) 2008 RSV Immunization Patients 60+ Years Old (1 - Risk 60-74 years 1-dose series) 2018 COVID-19 Vaccine (3 - Moderna risk series) 11/21/2020 10/24/2020, 09/26/2020 Colorectal Cancer Screening: Colonoscopy 05/12/2022 Medicare Annual Wellness Visit 05/12/2022 Osteoporosis Screening (Bone Density Screening) 05/12/2022 Social Influencers of Health Screening 05/12/2022 Falls Risk Assessment 09/21/2023 Influenza Vaccine (#1) 2024 Depression Screening 05/19/2025 05/19/2024 Hypertension/CHF/CAD Annual BMP Blood Test 06/29/2025 06/29/2024, 03/06/2023, 01/15/2023 Cholesterol Screening (Lipid Panel) 05/19/2029 05/19/2024, 05/19/2024, 01/15/2023, Additional history exists Hepatitis C Screening Completed 07/26/2020 HIB Vaccines Aged Out No longer eligi ble based on patient's age to complete this topic HPV Vaccines Aged Out No longer eligi ble based on patient's age to complete this topic Hepatitis A Vaccines Aged Out No long er eligible based on patient's age to complete this topic Hepatitis B Vaccines Aged Out No long er eligible based on patient's age to complete this topic IPV Vaccines Aged Out No longer eligi ble based on patient's age to complete this topic MMR Vaccines Aged Out No longer eligi ble based on patient's age to complete this topic Meningococcal ACWY Vaccine Aged Out N o longer eligible based on patient's age to complete this topic Meningococcal B Vacine Aged Out No lo nger eligible based on patient's age to complete this topic RSV Immunization Patients Under 20 months Aged Out No longer eligible based on patient's age to complete this topic Varicella Vaccines Aged Out No longer eligible based on patient's age to complete this topic Medical Devices Implanted Type Area Auxiliary Equipment Operator Device Identifier Shelf Expiration Date Model / Serial / Lot Abbt-Stju [id number] Lawrence(Tm) [id number] Implanted:04/03 (Quantity not on file) Cardiac ICD [facility] [id number] LAWRENCE(DOROTHY ) DR Figueroa [id number] / Procedures Procedure Name Priority Date/Time Associated Diagnosis Comments CARDIAC DEVICE CHECK- REMOTE- MURJ Routine 06/30/2024 11:21 AM EST MAGNESIUM Routine 06/29/2024 10:12 AM EST Ventricular tachycardia (CMS/HCC) THYROID STIMULATING HORMONE WITH REFLEX TO FREE T4 AND FREE T3 Routine 06/29/2024 10:12 AM EST FDC current use of amiodarone COMPREHENSIVE METABOLIC PANEL Routine 06/29/2024 10:12 AM EST Ventricular tachycardia (CMS/HCC) [facility]DC current use of amiodarone CARDIAC DEVICE CHECK- REMOTE- MURJ Routine 06/25/2024 4:21 PM EST CARDIAC DEVICE CHECK- REMOTE- MURJ Routine 06/12/2024 11:33 AM EST CARDIAC DEVICE CHECK- REMOTE- MURJ Routine 06/02/2024 8:09 AM EST CARDIAC DEVICE CHECK- REMOTE- MURJ Routine 05/20/2024 3:19 PM EST ECG 12-LEAD Routine 04/23/2024 1:28 PM EST Ventricular tachycardia (CMS/HCC) EXTERNAL CLINICAL LAB Routine 04/23/2024 12:38 PM EST LIPID PANEL Routine 01/15/2023 HEPATITIS C SCREENING Routine 07/26/2020 from Last 3 Months or Most Recently Relevant to Health Maintenance Results * Cardiac device check - Remote- MURJ (06/30/2024 11:21 AM EST) Only the most recent of5 resultswithin the time period is included. Date Time Interrogation Session [id number] CV DEVICE CHECK Type Interrogation Session Remote Scheduled CV DEVICE CHECK Implantable Pulse Generator Auxiliary Equipment Operator [employer] CV DEVICE CHECK Implantable Pulse Generator Type ICD CV DEVICE CHECK Implantable Pulse Generator Model [id number] Lawrence MEMBRENO (TM) CV DEVICE CHECK Implantable Pulse Generator Serial Number [id number] CV DEVICE CHECK Implantable Pulse Generator Implant Date [id number] CV DEVICE CHECK Battery Remaining Percentage 35.00 CV DEVICE CHECK Battery Remaining Longevity 32.0 CV DEVICE CHECK Battery Voltage 2.950 CV D EVICE CHECK Battery SENIOR ACCOUNTING CLERK Trigger 2.620 CV DEVICE CHECK Battery Status Middle of Service CV DEVICE CHECK Capacitor Charge Time 8.400 CV DEVICE CHECK Dez Statistic RA Percent Paced 96.00 CV DEVICE CHECK Dez Statistic RV Percent Paced 1.00 CV DEVICE CHECK Atrial Tachy Statistic AT/AF [place] Percent 1.00 CV DEVICE CHECK Lead Channel [...] Narrative Procedure Note Ivelisse Simons PA - 01/28/2025 IMPRESSION: Appropriate VT Therapy: Successful * Stored EGMs are consistent with or suggestive of VentricularTachycardia * Total episodes: 1 new * Number of ATP therapy: 1 new VT with ATP 38 beats * Number of shocks delivered: 0 Additional Notes: Noted on 06/25/24 previous episode of VT Ivelisse GONZALEZ CV IMPLANTABLE CARDIAC DEVICE SC OCEDURES Final Result * Thyroid stimulating hormone with reflex to free t4 and free t3 (06/29/2024 10:12 AM EST) TSH 1.26 0.40 - 4.00 mcIU/mL LAB CHEMISTRY METHOD 06/29/2024 3:59 PM EST [facility] Blood Venous blood specimen / Unknown Venipuncture / Unknown 06/29/2024 10:12 AM EST 06/29/2024 10:12 AM EST Cheryl Moreira CORPORATE MANAGER LAB BLOOD ORDERABLES Final R esult Performing Organization Address City/[facility]/ZIP Co de Phone Number [facility] [address] [place] [address], * Magnesium (06/29/2024 10:12 AM EST) [facility] Magnesium 2.4 1.9 - 2.6 mg/dL LAB CHEMISTRY METHOD 06/29/2024 3:52 PM EST [facility] Blood Venous blood specimen / Unknown Venipuncture / Unknown 06/29/2024 10:12 AM EST 06/29/2024 10:12 AM EST Cheryl Moreira CORPORATE MANAGER LAB BLOOD ORDERABLES Final R esult Performing Organization Address City/[facility]/ZIP Co de Phone Number [facility] [address] [place] [address], [place] [phone] * (ABNORMAL) Comprehensive metabolic panel (06/29/2024 10:12 AM EST) Sodium 143 133 - 145 mmol/L LAB CHEMISTRY METHOD 06/29/2024 4:00 PM [facility] Potassium 5.0 3.5 - 5.5 mmol/L LAB CHEMISTRY METHOD 06/29/2024 4:00 PM [facility] Chloride 117(H) 96 - 110 mmol/L LAB CHEMISTRY METHOD 06/29/2024 4:00 PM [facility] CO2 22 21 - 32 mmol/L LAB CHEMISTRY METHOD 06/29/2024 4:00 PM [facility] Anion Gap 4 3 - 11 LAB CHEMISTRY METHOD 06/29/2024 4:00 PM [facility] Glucose 97 70 - 100 mg/dL LAB CHEMISTRY METHOD 06/29/2024 4:00 PM [facility] BUN 48(H) 5 - 25 mg/dL LAB CHEMISTRY METHOD 06/29/2024 4:00 PM [facility] Creatinine 2.86(H) 0.50 - 1.10 mg/dL LAB CHEMISTRY METHOD 06/29/2024 4:00 PM [facility] eGFR 18(L) >=60 mL/min/1. 73m2 LAB CHEMISTRY METHOD 06/29/2024 4:00 PM [facility] Comment:Calculation based on the??Chronic Kidney Disease Epidemiology Collaboration (CKD-EPI) equation refit??without adjustment for race. BUN/Creatinine Ratio 16.8 LAB CHEMISTRY METHOD 06/29/2024 4:00 PM [facility] Calcium 8.9 8.5 - 10.5 mg/dL LAB CHEMISTRY METHOD 06/29/2024 4:00 PM [facility] AST (SGOT) 65(H) 10 - 42 unit/L LAB CHEMISTRY METHOD 06/29/2024 4:00 PM [facility] ALT (SGPT) 199(H) 10 - 60 unit/L LAB CHEMISTRY METHOD 06/29/2024 4:00 PM EST [facility] Alkaline Phosphatase 85 42 - 121 unit/L LAB CHEMISTRY METHOD 06/29/2024 4:00 PM [facility] Total Protein 6.1 6.0 - 8.0 g/dL LAB CHEMISTRY METHOD 06/29/2024 4:00 PM [facility] Albumin 3.3 3.2 - 5.0 g/dL LAB CHEMISTRY METHOD 06/29/2024 4:00 PM [facility] Total Bilirubin 0.5 0.0 - 1.4 mg/dL LAB CHEMISTRY METHOD 06/29/2024 4:00 PM [facility] Blood Venous blood specimen / Unknown Venipuncture / Unknown 06/29/2024 10:12 AM EST 06/29/2024 10:12 AM EST Cheryl Moreira CORPORATE MANAGER LAB BLOOD ORDERABLES Final R esult Performing Organization Address City/[facility]/ZIP Co de Phone Number [facility] [address] [place] [address], [place] [phone] * ECG 12 lead (04/23/2024 1:28 PM EST) Ventricular Rate ECG 70 BPM GEMUSE Atrial Rate 70 BPM GEMUSE P-R Interval 270 ms GEMUSE QRS Duration 144 ms GEMUSE Q-T Interval 436 ms GEMUSE QTc 470 ms GEMUSE P Wave [place] 31 degrees GEMUSE R [place] -45 degrees GEMUSE T [place] 110 degrees GEMUSE ECG Interpretation Atrial-paced rhythm with prolonged AV conduction Left axis deviation Left bundle branch block Abnormal ECG Confirmed by Genesis REEVES JOHN ([id number]) on 04/23/2024 3:03:50 PM GEMUSE 04/23/2024 12:4 8 PM EST 04/23/2024 3:03 PM EST Cheryl Moreira CORPORATE MANAGER ECG ORDERABLES Edited Resul t - Final GEMUSE * External clinical lab (04/23/2024 12:38 PM EST) Historical Provider LAB BLOOD ORDERABLES Sylvia l Result * Hepatitis C Screening (07/26/2020) Hepatitis C Screening Abstracted us Historical Provider HEALTH MAINTENANCE Final Result from Last 3 Months or Most Recently Relevant to Health Maintenance Insurance MEDICARE [employer] MEDICARE Care Teams Medication Coordinator Relationship Specialty Start Date End Date Nilay Marquez PA [address] [place] [phone] PCP - General Internal Medicine 04/10/21
--- OUTSIDE RECORDS SUMMARY | 2024-07-22 10:45 | XMS_ITS | Clinical Summary ---
Author Organization [facility] Address [address] [place] [address] Care Team Providers Care Septic Cleaner Name Role Phone Unknown Primary Care Provider [phone] Allergies Active Allergy Reactions Criticality Noted Date Comments Codeine Unknown/Patient and Family Unable to Define Medium 12/20/2021 Gabapentin Myalgia/Myositis/Art hralgia/Arthri tis Low 12/20/2021 Isosorbide Nitrate Unknown/Patient and Family Unable to Define Medium 12/20/2021 Social History Tobacco Use Types Packs/Day Years Used Date Smoking Tobacco: Never Assessed Sex and Gender Information Value Date Recorded Sex Assigned at Not on file Gender Identity Not on file Sexual Orientation Not on file Plan of Treatment Health Maintenance Due Date Last Done Comments Hepatitis C Virus Screening 1960 HIV Screening 09/21/1971 DTaP/Tdap/Td Vaccines (1 - Tdap) 1977 Pap Smear (Ages 21-65) 09/21/1979 Mammogram 1998 Colonoscopy 09/21/2003 Pneumococcal Vaccines 50+ (1 of 1 - PCV) 2008 Zoster (Shingles) Vaccine (1 of 2) 2008 DXA Bone Density (Females,Ages 65 and older) 09/21/2023 Influenza Vaccine 01/02/2024 COVID-19 Vaccine ( - 2023-2 5 season) 2024 10/24/2020, 09/26/2020 RSV Vaccine 60 years and older and Patients (1 - 1-dose 75+ series) 2033 Hepatitis B Vaccines Aged Out No long er eligible based on patient's age to complete this topic Care Teams Septic Cleaner Relationship Specialty Start Date End Date Unknown Unknow Provider Address PCP - General 12/20/21
--- OUTSIDE RECORDS SUMMARY | 2024-07-22 10:47 | XMS_ITS | Encounter Summary ---
Author Organization [facility] Address [address] [place] [address] Care Team Providers Care Cattle Alley Worker Name Role Phone Nilay Marquez Primary Care Provider [phone] Encounter Details Date Type Department Care Team (Late st Contact Info) Description 06/25/2024 Telephone [facility] - [facility] [address] [place] [phone] Cheryl Moreira, KADEN [address] [place] [phone] Social History Tobacco Use Types Packs/Day Years [...] as of this encounter Progress Notes * Giovanni Boo RN - 06/26/2024 1:05 PM ESTAddended by: GIOVANNI BOO on: 06/26/2024 01:05 PM Modules accepted: Orders * Giovanni Boo RN - 06/26/2024 12:49 PM ESTAddended by: GIOVANNI BOO on: 06/26/2024 12:49 PM Modules accepted: Orders * Giovanni Boo RN - 06/26/2024 12:45 PM EST Per Kristie Moreira response on teams - If she can get out update BMP and Mag and be sure she is missing no doses of AAD. Requested labs ordered and pending. Called daughter and made aware of Kristie Moreira's response. Is aware as soon as she is able to get labs drawn per Kristie Moreira. States uses [facility] at [address] Is aware labs are in the system andshe can get drawn when she is able. States she will have her mom get labs drawn on Saturday. Is awareto make sure her mom is not missing any of her AAD meds and staying hydrated. * Giovanni Boo RN - 06/26/2024 9:41 AM EST Called pt and daughter this AM. States she has the flu and so does the rest of the family, s/s started over the weekend and has been continuing. Has chest congestion, cough, chills - did not check temp, nausea, and intermittent vomiting. Trying to stay hydrated, was able to hold fluids down last night and this AM. Was able to hold down food last night. Has been having no problems with meds, has been taking Amio 200mg daily, Mexitil 400mg daily with no issues. She did not feel anything during the episode of VT. Is aware for any changes in s/s to call the office back. Is aware if not recoveringfrom the flu or if flu s/s worsen to call PCP and present to the ER if concerning s/s. * Cheryl Moreira NP - 06/25/2024 4:39 PM EST An episode of ventricular tachycardia on November 22, 2024 at 1 12 in the afternoon, successfully converted with 1 round of ATP Triage could you please phone the patient and assess for any correlating symptoms, recent illnesses. She had an episode several weeks ago that correlated to the of her dog thus no medication changes were made. With continued burden of VT we may need to increase the dose of amiodarone or mexiletine. Would youasked her to clarify whether or not she has been intolerant of higher doses of either of these medicines. Thank you documented in this encounter Plan of Treatment Upcoming Encounters Date Type Department Care Team (Late st Contact Info) Description 10/21/2024 11:00 AM EDT Ancillary Procedure [facility] - [facility] [address] [place] [address] 11/13/2024 10:30 AM EDT Office Visit Pulmonolgy - [place] [address] [facility] [address] [place] [address] Marguerite Jimenez NP [address] [facility] [address] [place] [address] documented as of this encounter Visit Diagnoses Diagnosis Ventricular tachycardia (CMS/HCC)- Primary Paroxysmal ventricular tachycardia documented in this encounter Orders Lab Orders Without Results Count Last Ordered D ate First Ordered Date BASIC METABOLIC PANEL 1 06/26/2024 MAGNESIUM 1 06/26/2024 documented in this encounter Care Teams Cattle Alley Worker Relationship Specialty Start Date End Date Nilay Marquez PA [address] [place] [address] PCP - General Internal Medicine 04/10/21 documented as of this encounter
--- OUTSIDE RECORDS SUMMARY | 2024-07-22 10:47 | XMS_ITS | Encounter Summary ---
Author Organization [facility] Address [address] [place] [address] Care Team Providers Care Hoop Riveter Name Role Phone Nilay Marquez Primary Care Provider [phone] Encounter Details Date Type Department Care Team (Late st Contact Info) Description 06/25/2024 4:25 PM EST Ancillary Procedure [facility] [address] [facility] [address] [place] [id number] Social History Tobacco Use Types Packs/Day Years [...] Description 10/21/2024 11:00 AM EDT Ancillary Procedure [facility] [address] [facility] [address] [place] [address] 11/13/2024 10:30 AM EDT Office Visit Pulmonolgy - [place] [address] [facility] [address] [place] [phone] Marguerite Jimenez NP [address] [facility] [address] [place] [address] documented as of this encounter Procedures Procedure Name Priority Date/Time Associated Diagnosis Comments CARDIAC DEVICE CHECK- REMOTE- MURJ Routine 06/25/2024 4:21 PM EST documented in this encounter Results * Cardiac device check - Remote- MURJ (06/25/2024 4:21 PM EST) Date Time Interrogation Session [id number] CV DEVICE CHECK Type Interrogation Session Remote Device Initiated CV DEVICE CHECK Implantable Pulse Generator Reimbursement Representative [facility] CV DEVICE CHECK Implantable Pulse Generator Type ICD CV DEVICE CHECK Implantable Pulse Generator Model [id number] [place](TM) CV DEVICE CHECK Implantable Pulse Generator Serial Number [id number] CV DEVICE CHECK Implantable Pulse Generator Implant Date [id number] CV DEVICE CHECK Battery Remaining Percentage 35.00 CV DEVICE CHECK Battery Remaining Longevity 34.0 CV DEVICE CHECK Battery Voltage 2.950 CV D EVICE CHECK Battery VASCULAR PHYSICIAN Trigger 2.620 CV DEVICE CHECK Battery Status Middle of Service CV DEVICE CHECK Capacitor Charge Time 8.400 CV DEVICE CHECK Dez Statistic RA Percent Paced 96.00 CV DEVICE CHECK Dez Statistic RV Percent Paced 1.00 CV DEVICE CHECK Atrial Tachy Statistic AT/AF [place] Percent 1.00 CV DEVICE CHECK Lead Channel Sensing Intrinsic Amplitude 3.300 CV DEVICE CHECK Lead Channel Setting Sensing Sensitivity 0.30 CV DEVICE CHECK Lead Channel Impedance Value 350 CV DEVICE CHECK Lead Channel Pacing Threshold Amplitude 0.875 CV DEVICE CHECK Lead Channel Pacing Threshold Pulse Width 0.5 CV DEVICE CHECK Lead Channel RA Pacing Threshold Date 2024-06-25 CV DEVICE CHECK Lead Channel Setting Pacing Amplitude 1.875 CV DEVICE CHECK Lead Channel Setting Pacing Pulse Width 0.5 CV DEVICE CHECK Lead Channel Sensing Intrinsic Amplitude 12.000 CV DEVICE CHECK Lead Channel Setting Sensing Sensitivity 0.50 CV DEVICE CHECK Lead Channel Impedance Value 410 CV DEVICE CHECK Lead Channel Pacing Threshold Amplitude 1.000 CV DEVICE CHECK Lead Channel Pacing Threshold Pulse Width 0.5 CV DEVICE CHECK Lead Channel RV Pacing Threshold Date 2024-06-25 CV DEVICE CHECK Lead Channel Setting Pacing [...] DEVICE CHECK Therapy Statistic Recent ATP Delivered 4 CV DEVICE CHECK Shock Measured Impedance 83 CV DEVICE CHECK Zone Setting Type Category [...] Anatomical Region Laterality Modality Device Interroga tion 06/25/2024 12:5 4 PM EST Impressions 06/25/2024 4:19 PM EST Appropriate VT Therapy: Successful * Stored EGMs are consistent with or suggestive of Ventricular Tachycardia * Total episodes: 1 NSVT 22 beats * Number of ATP therapy: 1 * Number of shocks delivered: 0 Heart Failure Diagnostic: Stable * Heart failure diagnostics assessed through the device * Status: Stable * No overt HF present Narrative Procedure Note Cheryl Moreira NP - 06/25/2024 IMPRESSION: Appropriate VT Therapy: Successful * Stored EGMs are consistent with or suggestive of VentricularTachycardia * Total episodes: 1 NSVT 22 beats * Number of ATP therapy: 1 * Number of shocks delivered: 0 Heart Failure Diagnostic: Stable * Heart failure diagnostics assessed through the device * Status: Stable * No overt HF present Cheryl Moreira NP CV IMPLANTABLE CARDIAC DEVIC E PROCEDURES Final Result documented in this encounter Visit Diagnoses Not on filedocumented in this encounter Care Teams Hoop Riveter Relationship Specialty Start Date End Date Nilay Marquez PA [address] [place] [address] PCP - General Internal Medicine 04/10/21 documented as of this encounter
[2024-07-22 18:26] LABS: Anion Gap 12 (12-20); Blood Urea Nitrogen 38 mg/dL (9-16); Carbon Dioxide 23 mmol/L (22-29); Chloride 111 mmol/L (96-108); Estimated Glomerular Filt Rate 19; Potassium 4.6 mmol/L (3.3-5.1); Sodium 141 mmol/L (135-145)
== END 2024-07-22 10:15 | disposition home or self-care (01) ==
LOC: HO.HKASLDS 10:14
PROVIDERS: Visit Provider Internal Medicine Nephrology
DX: N18.32 Chronic kidney disease, stage 3b (principal); I10 Essential (primary) hypertension; E87.5 Hyperkalemia; N25.81 Secondary hyperparathyroidism of renal origin
CPT/HCPCS: 36415; 80051; 82565; 84520

== ENCOUNTER 2024-08-04 11:32 | Outpatient (AMB) | payer MEDICARE, SELFPAY ==
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
--- OUTSIDE RECORDS SUMMARY | 2024-08-04 14:41 | XMS_ITS | Clinical Summary ---
Author Organization [facility] Address [address] [place] [address] Care Team Providers Care Linoleum Floor Installer Name Role Phone Nilay Marquez Primary Care Provider [phone] Source Comments PLEASE NOTE, if this patient is a minor, it may be UNLAWFUL to discuss sensitive information that is contained in these records (such as FAMILY PLANNING, MENTAL HEALTH or SUBSTANCE ABUSE) with the minor patient's parent or other person without the patient's specific authorization.[facility] Allergies Active Allergy Reactions Criticality Noted Date Comments Codeine Nausea and Vomiting,Intolerance - Will Not Trigger Allergy Alert,Rash High 03/23/2020 Other reaction(s): Other (See Comments), Other (see comments), Unknown, Unknown/Patient and Family Unable to Define Gabapentin Intolerance - Will N ot Trigger Allergy Alert,Other (See Comments),Swelling Medium 05/31/2021 Other reaction(s): Myalgia/Myositis/Ar thralgia/Arthritis, Other (see comments), Other (See Comments) Other reaction(s): Makes bones hurt Other reaction(s): Makes bones hurt Other reaction(s): Myalgia/Myositis/Ar thralgia/Arthritis, Other (see comments), Other (See Comments) Other reaction(s): Makes bones hurt Other reaction(s): Makes bones hurt Other Reaction(s): Other (See Comments) Isosorbide Dinitrate Intolerance - Will Not Trigger Allergy Alert Medium 11/23/2021 Other reaction(s): Other (See Comments), Other (see comments), Unknown, Unknown/Patient and Family Unable to Define Other Reaction(s): Other (See Comments) Lisinopril 07/10/2021 Warning Other reaction(s): Other (See Comments) Warning Other Reaction(s): Other (See Comments) Warning Warning Warning Other reaction(s): Other (See Comments) Warning Warning Oxycodone Nausea and Vomiting Low 05/31/2021 Other reaction(s): vomiting Other Reaction(s): vomiting Medications walkerIndications: Osteoarthritis, unspecified osteoarthritis type, unspecified site,Dizziness Patient with OA, please dispense one walker. 1 Each 01/07/20 Active amLODIPine (NORVASC) 10 mg tablet PRESCRIBED BY CARDIOLOGY 04/22/20 Active mexiletine 150 mg cap PRESCRIBED BY CARDIOLOGY 04/22/20 Active albuterol sulfate 90 mcg/actuation inhalerIndications :Asthma-chronic obstructive pulmonary disease overlap syndrome (HCC-CMS) Inhale 2 Puffs into the lungs every 4 (four) hours as needed for shortness of breath 18 g 1 05/01/20 Active budesonide-formote roL (SYMBICORT) 160-4.5 mcg/actuation inhalerIndications :Asthma-chronic obstructive pulmonary disease overlap syndrome (HCC-CMS) Inhale 2 Puffs into the lungs 2 (two) times daily 10.2 g 5 05/01/20 Active nebulizer and compressorIndicati ons:Asthma-chronic obstructive pulmonary disease overlap syndrome (HCC-CMS) Use with duoneb solution as needed for copd exacerbation. Lifetime use. Dx:COPD with asthma (HCC-CMS) [J44.9], 1 Each 05/01/20 Active nebulizer accessoriesIndicat ions:Asthma-chroni c obstructive pulmonary disease overlap syndrome (HCC-CMS) Use with duoneb solution as needed for copd exacerbation. Lifetime use. Dx:COPD with asthma (HCC-CMS) [J44.9], 2 Each 05/01/20 Active mexiletine 150 mg cap Take 300 mg by mouth 04/22/20 Active meclizine (ANTIVERT) 25 mg tabletIndications: Dizziness TAKE 1 TABLET BY MOUTH ONCE DAILY NEEDED FOR NAUSEA OR DIZZINESS 30 Tablet 07/20/19 22 Active LORazepam (ATIVAN) 0.5 mg tabletIndications: Anxiety,Primary insomnia Take 1 Tablet by mouth nightly at bedtime as needed for anxiety or sleep 30 Tablet 1 08/24/19 22 Active budesonide-formote roL (SYMBICORT) 160-4.5 mcg/actuation inhalerIndications :Chronic obstructive pulmonary disease with acute lower respiratory infection (HCC-CMS) Inhale 2 Puffs into the lungs 2 (two) times daily 10.2 g 1 08/24/19 22 Active carvediloL (COREG) 25 mg tabletIndications: Heart failure with reduced ejection fraction (HCC-CMS),Hyperten sive renal disease Take 1 Tablet by mouth once daily 60 Tablet 1 08/24/19 22 Active traMADoL (ULTRAM) 50 mg tablet Take 1 Tablet by mouth 2 (two) times daily as needed for pain 30 Tablet 1 09/20/19 22 Active ipratropium-albute roL (DUONEB) 0.5 mg-3 mg(2.5 mg base)/3 mL nebulizer solutionIndication s:Asthma-chronic obstructive pulmonary disease overlap syndrome (HCC-CMS) Take 3 mL by nebulization 4 (four) times daily 90 mL 1 03/27/20 22 Active SPS, WITH SORBITOL, 15-20 gram/60 mL susp TAKE 60 ML BY MOUTH ONCE A WEEK DIRECTED FOR 3 MONTHS 08/13/19 23 Active hydrALAZINE (APRESOLINE) 50 mg tablet Take 50 mg by mouth 3 (three) times daily 07/03/19 23 Active amLODIPine (NORVASC) 10 mg tablet Take 10 mg by mouth daily 07/18/19 [address] tabletIndications: Essential hypertension Take 1 Tablet by mouth once daily 90 Tablet 1 08/24/19 23 Active propranoloL (INDERAL) 40 mg tablet TAKE ONE TABLET BY MOUTH THREE TIMES DAILY WITH 60 MG TABLET 01/12/20 23 Active propranoloL (INDERAL) 60 mg tablet TAKE ONE TABLET BY MOUTH THREE TIMES DAILY WITH 40 MG TABLET 01/12/20 23 Active isosorbide mononitrate (IMDUR) 60 mg 24 hr tablet Take 60 mg by mouth once daily 01/12/20 23 Active amiodarone (PACERONE) 200 mg tablet TAKE ONE TABLET BY MOUTH ONCE DAILY WITH FOOD Active mexiletine 200 mg cap Take 2 Capsules by mouth 2 (two) times daily Active omeprazole (PRILOSEC) [address] capsule Take 40 mg by mouth 04/06/20 21 Active ondansetron ODT (ZOFRAN-ODT) 4 mg disintegrating tabletIndications: Drug-induced nausea and vomiting Take 1 Tablet by mouth every 8 (eight) hours as needed for nausea 9 Tablet 2 01/16/20 23 Active furosemide (LASIX) 20 mg tabletIndications: Severe obesity (HCC-CMS),Heart failure with reduced ejection fraction (HCC-CMS),Chronic obstructive pulmonary disease with acute lower respiratory infection (HCC-CMS) Take 1 Tablet by mouth once daily for 90 days 30 Tablet 2 03/07/20 23 Active acetaminophen (TYLENOL 8 HOUR) 650 mg CR tablet Take 1 Tablet by mouth every 8 (eight) hours as needed for pain 60 Tablet 1 08/01/19 24 Active mexiletine 200 mg cap Take 400 mg by mouth 02/22/20 23 Active tirzepatide, weight loss, (ZEPBOUND) 2.5 mg/0.5 mL pnijIndications:HF rEF (heart failure with reduced ejection fraction) ([facility]-CMS),Severe obesity (HCC-CMS),Non-isch emic cardiomyopathy (HCC-CMS),Chronic bronchitis, unspecified chronic bronchitis type ([facility]-CMS) Inject 2.5 mg into the skin once a week 2 mL 1 05/19/20 24 Active levothyroxine 175 mcg tabletIndications: Hypothyroidism, unspecified type Take 1 tablet by mouth once daily 90 Tablet 05/29/20 24 Active omeprazole (PRILOSEC) [address] capsuleIndications :Gastroesophageal reflux disease, unspecified whether esophagitis present TAKE 1 CAPSULE BY MOUTH ONCE DAILY IN THE MORNING BEFORE BREAKFAST 90 Capsule 06/29/19 25 Active atorvastatin (LIPITOR) 40 mg tabletIndications: Hypercholesteremia Take 1 tablet by mouth once daily 90 Tablet 06/29/19 25 Active Active Problems Problem Noted Date Diagnosed Date Food insecurity 05/19/2024 Financial difficulties 05/19/2024 Osteoarthritis of right hip 12/19/2022 Right hip pain 12/19/2022 Left knee pain 07/25/2022 Osteoarthritis of left hip 07/25/2022 Nocturnal hypoxia 08/04/2021 Overview (05/19/2024): Overnight oximetry on 07/23/2021 on NIV: 1. Lowest oxygen 81% 2. Oxygen level under 88% 6.5 minutes. 3. Basal oxygen 94%. No supplemnetal oxygen needed. HFrEF (heart failure with re duced ejection fraction) ([facility]) 07/03/2021 History of ventricular tachycardia 07/03/2021 Hypothyroidism 07/03/2021 Obstructive sleep apnea 07/03/2021 COPD type A ([facility]) 07/03/2021 Non-ischemic cardiomyopathy ([facility]) 06/21/2021 Overview (05/19/2024): 04/06/21 Cath @ [facility] with Dr. Price - Findings consistent with non-ischemic cardiomyopathy of unclear chronicity and VT. Continue anti-rhythmic therapy and consider ICD. Syncope 06/21/2021 Ventricular tachycardia ([facility]) 06/21/2021 Overview (05/19/2024): 04/21/21 Device Implant @ [facility] with Dr. Parker - [facility] Dual Chamber AICD Severe obesity ([facility]) 05/31/2021 Chronic kidney disease, stage 3b ([facility]) 03/27 High blood cholesterol 01/30/2021 Anxiety 01/30/2021 Osteoarthritis of both knees 01/30/2021 Hypertension 08/22/2020 CKD (chronic kidney disease) 08/22/2020 Overview (03/12/2023): Sees nephrology Sees nephrology Sees nephrology Sees nephrology Sees nephrology Sees nephrology Sees nephrology Sees nephrology Sees nephrology Sees nephrology Sees nephrology Sees nephrology Sees nephrology Sees nephrology Sees nephrology Sees nephrology Sees nephrology Sees nephrology Sees nephrology Sees nephrology Sees nephrology Osteoarthrosis 08/22/2020 Acute nontraumatic kidney injury (HCC-CMS) 08/22 Hyperkalemia 08/22/2020 Hypertensive renal disease 08/22/2020 Allergic rhinitis 07/11/2020 Resolved Problems Problem Noted Date Diagnosed Date Resolved Date Hypercholesterolemia 08/22/2020 023 Encounters Date Type Department Care Team Description 05/19/2024 3:00 PM EST Office Visit [address] [address] Nilay Marquez PA Food insecurity (Primary Dx); Financial difficulties; HFrEF (heart failure with reduced ejection fraction) (HCC-CMS); Severe obesity (HCC-CMS); Pulmonary emphysema, unspecified emphysema type (HCC-CMS); Primary hypertension; Non-ischemic cardiomyopathy (HCC-CMS); Obstructive sleep apnea; Hypothyroidism, unspecified type; Osteoporosis, unspecified osteoporosis type, unspecified pathological fracture presence; Chronic bronchitis, unspecified chronic bronchitis type (HCC-CMS); Ventricular tachycardia (HCC-CMS) 05/19/2024 Travel from Last 3 Months Immunizations Name Administration Dates Next Due Moderna COVID-19 Vaccine, re d cap blue label, 12+ Primary Series 10/24/2020,09/26/2020 Family History Medical History Relation Name Comments Heart attack Brother 1 Heart attack Mother Heart attack Paternal Grandfather Relation Name Status Comments Brother 1 Brother 2 Mother Alive Paternal Grandfather Sister Alive Social History Tobacco Use Types Packs/Day Years Used Date Smoking Tobacco: Former Cigarettes Smokeless Tobacco: Never Tobacco Cessation:Counseling Given: Not Answered Comments:patient quit smoking on april 05 2021 Alcohol Use Standard Drinks/Week Comments Not Currently 0 (1 standard drink = 0.6 oz pur e alcohol) Social Connections Answer Date Recorded Connectedness 1 05/19/2024 Financial Resource Strain Answer Date R ecorded Financial Resource Strain 2 2023 Stress Answer Date Recorded Stress 1 05/19/2024 Physical Activity Answer Date Recorded Physical Activity 0 02/23/2020 Food Insecurity Answer Date Recorded Food 2 05/19/2024 Transportation Needs Answer Date Record ed Transportation 1 05/19/2024 Housing Stability Answer Date Recorded Housing 1 05/19/2024 Safety and Environment Answer Date Matteo rded Safety 0 08/23/2022 Utilities Answer Date Recorded Utilities 2 05/19/2024 Employment Answer Date Recorded Employment 0 02/23/2020 Comments No Sex and Gender Information Value Date Recorded Sex Assigned at Female 03/23/2020 10:13 AM PDT Legal Sex Female 12:22 PM PDT Gender Identity Female 03/23/2020 10:13 AM PDT Sexual Orientation Straight 03/23/2020 10 :13 AM PDT Last Filed Vital Signs Vital Sign Reading Time Taken Comments Blood Pressure 135/83 05/19/2024 2:51 PM EST Pulse 70 05/19/2024 2:51 PM EST Temperature 37.2 ??C (98.9 ??F) 05/19/2024 2:51 PM ES T Respiratory Rate 16 05/19/2024 2:51 PM EST Oxygen Saturation 95% 05/19/2024 2:51 PM EST Inhaled Oxygen Concentration - - Weight 112.5 kg (248 lb) 01/15/2023 9:35 AM EDT Height 157.5 cm (5' 2 ) 03/07/2023 5:07 PM EDT Body Mass Index 45.36 01/15/2023 9:35 AM EDT Plan of Treatment Health Maintenance Due Date Last Done Comments CT Colonography 09/21/2003 Colonoscopy 09/21/2003 FIT/gFOBT 09/21/2003 Fecal DNA 09/21/2003 Flexible Sigmoidoscopy 09/21/2003 Tobacco Screening 05/31/2022 05/31/2021, 05/01/2021 Falls Prevention 09/21/2023 05/31/2021 Alcohol and Drug Screen 06/03/2024 05/19/20, 08/23/2022, 08/23/2022, Additional history exists Depression Annual Screen 06/03/2024 05/19/2024, 03/04 Bone Density Screening 08/17/2024 Postp oned from 09/21/2023 (Patient postponement) Imm-DTaP/Tdap/Td (1 - Tdap) 08/17/2024 Postponed from 1977 (Patient postponement) Imm-Pneumococcal 65+ (1 of 2 - PCV) 08/17/2024 Postponed from 1977 (Patient postponement) Imm-Zoster, Recombinant (1 of 2) 08/17/2024 Postponed from 2008 (Patient postponement) [id number] (3 - season) 2024 10/24/2020, 09/26/2020 Postponed from 02/02/2024 (Patient postponement) Imm-Influenza (#1) 2024 Postponed from 02/02/2024 (Patient postponement) Annual Preventive Care Visit 05/19/2025 05/19/2024, 03/23/2020 Lipid Screening 05/19/2025 05/19/2024, 0810/2022, 01/15/2023, Additional history exists Medicare Annual Wellness Visit 05/19/2025 05/19/2024, 03/23/2020 TSH Monitoring 05/19/2025 05/19/2024, 10/0 09/2022, 01/15/2023, Additional history exists Diabetes Screening 01/15/2026 01/15/2023, 0 07/25/2022, 07/25/2022, Additional history exists Hepatitis C Screening Completed 07/26/2020 HIV Screening Completed 06/21/2021, 06/21/2021 Breast Cancer Screening (Mammogram) Discontinued Colorectal Cancer Screening Discontinued Procedures Procedure Name Priority Date/Time Associated Diagnosis Comments ASSAY OF FREE THYROXINE Routine 05/19/2024 3:27 PM EST TSH W/RFLX FREE T4 Routine 05/19/2024 3: 27 PM EST Hypothyroidism, unspecified type LIPID PANEL Routine 05/19/2024 3:27 PM EST Financial difficulties Primary hypertension Hypothyroidism, unspecified type OTHER ORDERS SCANNED DOCUMENT 05/11/2024 3:00 AM EST COMPREHENSIVE METABOLIC PANEL Routine 01/15/2023 10:12 AM EDT Chronic kidney disease, unspecified CKD stage HIV 1/2 AG & AB W/RFLX (4TH GEN) Routine 06/21/2021 9:43 AM EST Exposure to HIV HEPATITIS A,B,C PANEL Routine 07/26/2020 2:48 PM EST Routine adult health maintenance from Last 3 Months or Most Recently Relevant to Health Maintenance Results * (ABNORMAL) TSH W/RFLX FREE T4 (05/19/2024 3:27 PM EST) TSH W/REFLEX TO FT4 6.76(H) 0.40 - 4.50 mIU/L [facility] Blood Blood / Unknown 05/19/2024 3 :27 PM EST 05/19/2024 3:27 PM EST us Nilay [facility] - BLOOD DRAW Final Result Performing Organization Address City/[facility]/ZIP Co de Phone Number [address] [address] [address], [address] [address] * ASSAY OF FREE THYROXINE (05/19/2024 3:27 PM EST) Pathologist [facility] T-4, FREE 1.6 0.8 - 1.8 ng/dL [facility] 05/19/2024 3:27 PM EST 05/19/2024 3:27 PM EST us Nilay [facility] - BLOOD DRAW Final Result Performing Organization Address [facility] de Phone Number [address] [address] [address], [address] [address] * (ABNORMAL) LIPID PANEL (05/19/2024 3:27 PM EST) [facility] CHOLESTEROL, TOTAL 216(H) <200 mg/dL [facility] HDL CHOLESTEROL 46(L) > OR = 50 mg/dL [facility] TRIGLYCERIDES 166(H) <150 mg/dL [facility] LDL-CHOLESTEROL 140(H) 99 mg/dL (calc) [facility] Comment: Reference range: <100 Desirable range <100 mg/dL for primary prevention; ?? <70 mg/dL for patients with CHD or diabetic patients with > or = 2 CHD risk factors. LDL-C is now calculated using the Yumiko calculation, which is a validated novel method providing better accuracy than the Friedewald equation in the estimation of LDL-C. Sabino RIZO et al. NERIS. 2013;310(19): 7551-5479 (http://education.SnapLogic/faq/PKB519) CHOL/HDLC RATIO 4.7 <5.0 (calc) [facility] NON-HDL CHOLESTEROL 170(H) <130 mg/dL (calc) [facility] Comment: For patients with diabetes plus 1 major ASCVD risk factor, treating to a non-HDL-C goal of <100 mg/dL (LDL-C of <70 mg/dL) is considered a therapeutic option. Blood Blood / Unknown 05/19/2024 3 :27 PM EST 05/19/2024 3:27 PM EST us Nilay [facility] - BLOOD DRAW Final Result [facility] [address] [address], [facility] [address] [place] [address] * OTHER ORDERS SCANNED DOCUMENT (05/11/2024 3:00 AM EST) 05/11/2024 3:00 AM EST us Nilay [facility] SCAN OTHER ORDERS Final Result * (ABNORMAL) COMPREHENSIVE METABOLIC PANEL (01/15/2023 10:12 AM EDT) GLUCOSE 112(H) 65 - 99 mg/dL [facility] Comment: ?Fasting reference interval For someone without known diabetes, a glucose value between 100 and 125 mg/dL is consistent with prediabetes and should be confirmed with a follow-up test. UREA NITROGEN (BUN) 22 7 - 25 mg/dL [facility] CREATININE (blood) 1.87(H) 0.50 - 1.05 mg/dL [facility] EGFR 30(L) > OR = 60 mL/min/1. 73m2 [facility] BUN/CREATININE RATIO 12 6 - 22 (calc) [facility] SODIUM 141 135 - 146 mmol/L [facility] POTASSIUM 5.1 3.5 - 5.3 mmol/L [facility] CHLORIDE 111(H) 98 - 110 mmol/L [facility] CARBON DIOXIDE 24 20 - 32 mmol/L [facility] CALCIUM 9.1 8.6 - 10.4 mg/dL [facility] PROTEIN, TOTAL 5.5(L) 6.1 - 8.1 g/dL [facility] ALBUMIN 3.8 3.6 - 5.1 g/dL [facility] GLOBULIN 1.7(L) 1.9 - 3.7 g/dL (calc) [facility] ALBUMIN/GLOBULI N RATIO 2.2 1.0 - 2.5 (calc) [facility] BILIRUBIN, TOTAL 0.4 0.2 - 1.2 mg/dL [facility] ALKALINE PHOSPHATASE 78 37 - 153 U/L [facility] AST 16 10 - 35 U/L [facility] ALT 20 6 - 29 U/L [facility] Blood Blood / Unknown 01/15/2023 1 0:12 AM EDT 01/15/2023 10:13 AM EDT [facility] - BLOOD DRAW Edited Result - Final [address] [address] [address], [address] [address] [address] * HIV 1/2 AG & AB W/RFLX (4TH GEN) (06/21/2021 9:43 AM EST) HIV AG/AB, 4TH GEN NON-REAC TIVE NON-REAC TIVE [facility] Comment: HIV-1 antigen and HIV-1/HIV-2 antibodies were not detected. There is no laboratory evidence of HIV infection. PLEASE NOTE: This information has been disclosed to you from records whose confidentiality may be protected by state law. ??If your state requires such protection, then the state law prohibits you from making any further disclosure of the information without the specific written consent of the person to whom it pertains, or as otherwise permitted by law. A general authorization for the release of medical or other information is NOT sufficient for this purpose. ?? For additional information please refer to http://education.ActiViews/faq/FJB910 (This link is being provided for informational/ educational purposes only.) The performance of this assay has not been clinically validated in patients less than 2 years old. Blood Blood / Unknown 06/21/2021 9 :43 AM EST 06/21/2021 9:43 AM EST [facility] - BLOOD DRAW Final Result [facility] [address] [address], [facility] [address] [address] * (ABNORMAL) HEPATITIS A,B,C PANEL (07/26/2020 2:48 PM EST) HEPATITIS B SURFACE ANTIBODY NEGATIVE NEGATIVE [facility] HEPATITIS B SURFACE ANTIGEN NEGATIVE NEGATIVE [facility] Comment: Over the counter supplements containing high doses of biotin may interfere with this assay. ??If interference is suspected, patients shoud be retested after refraining from biotin supplements for 72 hours. HEPATITIS C VIRUS DIAGNOSTIC NEGATIVE NEGATIVE [facility] HEPATITIS B CORE ANTIBODY NEGATIVE NEGATIVE [facility] HEPATITIS A ANTIBODY TOTAL POSITIVE(A) NEGATIVE [facility] Comment: Over the counter supplements containing high doses of biotin may interfere with this assay. ??If interference is suspected, patients shoud be retested after refraining from biotin supplements for 72 hours. Blood Blood / Unknown 07/26/2020 2 :48 PM EST 07/26/2020 6:23 PM EST Narrative [facility] - 07/26/2020 7:37 PM EST [employer], a member of [address] [address] Hydroelectric Plant Mechanical Engineer - Delphine Ríos MD PT ID [id number] ORD# [id number] [facility] - BLOOD DRAW Edited Result - Final Performing Organization Address City/[facility]/ZIP Co de Phone Number [address] [address], from Last 3 Months or Most Recently Relevant to Health Maintenance Insurance [place]ARE - [place] Care Teams Linoleum Floor Installer Relationship Specialty Start Date End Date Nilay Marquez PA [address] [place] [id number] PCP - General Internal Medicine 02/23/20
--- OUTSIDE RECORDS SUMMARY | 2024-08-04 14:41 | XMS_ITS | Clinical Summary ---
Author Organization [facility] Address [address] [place] [address] Phone Care Team Providers Care Banquet Line Cook Name Role Phone Nilay Marquez MD Primary Care Provider [phone] Allergies Active Allergy Reactions Criticality Noted Date [...] patient's age to complete this topic Insurance [facility] MEDICAID [facility] MEDICAID Care Teams Banquet Line Cook Relationship Specialty Start Date End Date Nilay Marquez MD [address] [place] [id number] PCP - General Physician Wire Communications Engineer 08/22/20
--- OUTSIDE RECORDS SUMMARY | 2024-08-04 14:41 | XMS_ITS | Clinical Summary ---
Author Organization [facility] Address [address] [place] [address] Care Team Providers Care Feed Adviser Name Role Phone Unknown Primary Care Provider [phone] Allergies Active Allergy Reactions Criticality Noted Date [...] age to complete this topic Care Teams Feed Adviser Relationship Specialty Start Date End Date Unknown Unknow Provider Address PCP - General 12/20/21
--- OUTSIDE RECORDS SUMMARY | 2024-08-04 14:41 | XMS_ITS | Encounter Summary ---
Author Organization [facility] Address [address] [place] [address] Care Team Providers Care Tooth Cutter Clutch Name Role Phone Nilay Marquez Primary Care Provider Reason for Visit * Reason Onset Date Comments triage 07/31/2024 Not feeling well Encounter Details Date Type Department Care Team ([facility] st Contact Info) Description 07/31/2024 Telephone [facility] - [facility] [address] [facility] [address] [place] [phone] Marcie Singleton MA triage (Not feeling well) Social History Tobacco Use Types Packs/Day Years [...] of this encounter Progress Notes * Giovanni Cedeno, LEIA - 08/03/2024 8:29 AM EST Called Apurva - daughter, this AM. States her mother is doing OK but she has developed a cold. Had 2 episodes so far of the hot flashes, nausea, dizziness, and had vomited only once. The last episodeon Saturday resolved after 5-10 min. She did not go to PCP or urgent care. She now has developed a cold - runny nose. Denies vomiting/diarrhea. Denies productive cough/CP/SOB. Is aware for any changes in s/s to call the office back. Is aware for any worsening cold/flu s/s to call PCP or be seen in urgent care. Scheduled apt for November 04, 2024 at 1:10 with Kristie Moreira, delfin apt letter, pt daughter aware. * Brandi Buckley MA - 08/01/2024 9:12 AM EST I sent a message via Onyvax about follow up after echo on 10/21/24 * Marcie Singleton MA - 07/31/2024 4:16 PM EST Apurva called to report around 10-11 this am patient experienced multiple hot flashes, nausea, dizziness, and had vomited. Apurva is asking for a call back to discuss if anything showed on patient's device. documented in this encounter Plan of Treatment Upcoming Encounters Date Type Department Care Team (Late st Contact Info) Description 10/21/2024 11:00 AM EDT Ancillary Procedure [facility] Cardiology [facility] - [facility] [address] [place] [address] 11/04/2024 1:10 PM EDT Office Visit [facility] Cardiology [facility] [address] [place] [address] Cheryl Moreira NP [address] [place] [phone] 11/13/2024 10:30 AM EDT Office Visit Pulmonolgy - [place] [address] [place] [phone] Marguerite Jimenez NP [address] [place] [address] documented as of this encounter Visit Diagnoses Not on filedocumented in this encounter Care Teams Tooth Cutter Clutch Relationship Specialty Start Date End Date Nilay Marquez PA [address] [place] [address] PCP - General Internal Medicine 04/10/21 documented as of this encounter
--- OUTSIDE RECORDS SUMMARY | 2024-08-04 14:41 | XMS_ITS | Clinical Summary ---
Author Organization [address] [place] [address] Address [address] [place] [address] Phone Care Team Providers Care Games Manager Name Role Phone Nilay Marquez Primary Care Provider [phone] Allergies Active Allergy Reactions Criticality Noted Date [...] 1 tablet (40 mg total) by mouth. 02/08/20 23 Active propranoloL (INDERAL) 60 mg tablet Take 1 tablet (60 mg total) by mouth. 02/08/20 23 Active hydrALAZINE (APRESOLINE) 50 mg tablet Take 1 tablet (50 mg total) by mouth. 07/03/19 23 Active atorvastatin (LIPITOR) 40 mg tablet Take 1 tablet (40 mg total) by mouth. Active isosorbide mononitrate (IMDUR) 60 mg 24 hr tablet Take 1 tablet (60 mg total) by mouth 1 (one) time each day. 02/09/20 23 Active levothyroxine (SYNTHROID, LEVOTHROID) 175 mcg tablet Take 1 tablet (175 mcg total) by mouth 1 (one) time each day. 04/29/20 23 Active omeprazole (PriLOSEC) [address] capsule Take 1 capsule (40 mg total) by mouth. Active amiodarone (PACERONE) 200 mg tablet Take 1 tablet by mouth once daily 90 tablet 3 04/22/20 24 Active sodium polystyrene (KAYEXALATE) powder Take 30 g by mouth 1 (one) time. 04/28/20 24 Active Tylenol Extra Strength 500 mg tablet Take 2 tablets (1,000 mg total) by mouth every 8 (eight) hours if needed for moderate pain. Patient take 2 tab as needed for pain [id number] PRT 08/01/19 24 Active mexiletine (MEXITIL) 200 mg capsule Take 2 capsules by mouth twice daily 360 capsule 1 07/30/19 25 Active mexiletine (MEXITIL) 200 mg capsule Take 2 capsules (400 mg total) by mouth. 02/22/20 23 025 Discontinued Active Problems Problem Noted Date Diagnosed Date [...] cardiomyopathy 06/21/2021 Overview (08/02/2023): 04/06/21 Cath @ [facility] with Dr. Price - Findings consistent with [...] Encounters Date Type Department Care Team Description 07/31/2024 Telephone [facility] - [address] [place] [address] Marcie Singleton MA triage (Not feeling well) 07/31/2024 Telephone [facility] - [address] [place] [address] Marcie Singleton MA Results (Labs) 07/30/2024 10:15 AM EST Lab Draw Station - [address] [place] [address] HFrEF (heart failure with reduced ejection fraction) (CMS/HCC) 07/02/2024 Telephone [facility] - [address] [place] [address] Marcie Singleton MA 06/30/2024 11:25 AM EST Ancillary Procedure [facility] - [address] [place] [address] 06/29/2024 10:15 AM EST Lab Draw Station - [address] [place] [address] Ventricular tachycardia ([facility]/HCC); buttermaker current use of amiodarone 06/25/2024 4:25 PM EST Ancillary Procedure [facility] - [address] [place] [address] 06/25/2024 Telephone [facility] - [address] [place] [address] Cheryl Moreira NP 06/12/2024 11:35 AM EST Ancillary Procedure [facility] - [address] [place] [address] 06/11/2024 Telephone [facility] - [address] [place] [address] Cheryl Moreira NP 06/02/2024 8:10 AM EST Ancillary Procedure [facility] [address] [place] [address] 06/01/2024 [facility] [address] [place] [address] Mei Shea MA DME request (CPAP supplies/) 05/20/2024 3:20 PM EST Ancillary Procedure [facility] - [address] [place] [address] 05/15/2024 10:10 AM EST [facility] [address] [facility] [address] [place] [address] Marguerite Jimenez NP Pulmonary emphysema, unspecified emphysema type (CMS/HCC) (Primary Dx); Nocturnal hypoxia; Non-ischemic cardiomyopathy (CMS/HCC); HFrEF (heart failure with reduced ejection fraction) (CMS/HCC); Severe obesity (CMS/HCC) from Last 3 Months Surgical History [...] Description 10/21/2024 11:00 AM EDT Ancillary Procedure [facility] - [address] [place] [address] 11/04/2024 1:10 PM EDT Office Visit [facility] - [address] [place] [address] Cheryl Moreira NP [address] [place] [address] 11/13/2024 10:30 AM EDT Office Visit Pulmonolgy - [place] [address] [place] [address] Marguerite Jimenez NP [address] [place] [address] Health Maintenance Due Date Last Done Comments [...] 05/19/2025 05/19/2024 Hypertension/CHF/CAD Annual BMP Blood Test 07/30/2025 07/30/2024, 06/29/2024, 03/06/2023, Additional history exists Cholesterol Screening (Lipid Panel) 05/19/2029 05/19/2024, 05/19/2024, [...] this topic Medical Devices Implanted Type Area Bowl Sander Device Identifier Shelf Expiration Date Model / Serial / Lot [id number]-jan [id number] Lawrence Shine (Tm) [id number] Implanted:04/03 (Quantity not on file) Cardiac ICD [facility] [id number] LAWRENCE SHINE (TM ) / [id number] / Procedures Procedure Name Priority Date/Time Associated Diagnosis Comments COMPREHENSIVE METABOLIC PANEL Routine 07/30/2024 10:16 AM EST HFrEF (heart failure with reduced ejection fraction) (CMS/HCC) CARDIAC DEVICE CHECK- REMOTE- MURJ Routine 06/30/2024 11:21 AM EST MAGNESIUM Routine 06/29/2024 10:12 AM EST Ventricular tachycardia (CMS/HCC) THYROID STIMULATING HORMONE WITH REFLEX TO FREE T4 AND FREE T3 Routine 06/29/2024 10:12 AM EST buttermaker current use of amiodarone COMPREHENSIVE METABOLIC PANEL Routine 06/29/2024 10:12 AM EST Ventricular tachycardia (CMS/HCC) snf current use of amiodarone CARDIAC DEVICE CHECK- REMOTE- MURJ Routine 06/25/2024 4:21 PM EST CARDIAC DEVICE CHECK- REMOTE- MURJ Routine 06/12/2024 11:33 AM EST CARDIAC DEVICE CHECK- REMOTE- MURJ Routine 06/02/2024 8:09 AM EST CARDIAC DEVICE CHECK- REMOTE- MURJ Routine 05/20/2024 3:19 PM EST LIPID PANEL Routine 01/15/2023 HEPATITIS C SCREENING Routine 07/26/2020 from Last 3 Months or Most Recently Relevant to Health Maintenance Results * (ABNORMAL) Comprehensive metabolic panel (07/30/2024 10:16 AM EST) Only the most recent of2 resultswithin the time period is included. Sodium 143 133 - 145 mmol/L LAB CHEMISTRY METHOD 07/30/2024 12:14 PM EST [facility] Potassium 5.0 3.5 - 5.5 mmol/L LAB CHEMISTRY METHOD 07/30/2024 12:14 PM EST [facility] Chloride 112(H) 96 - 110 mmol/L LAB CHEMISTRY METHOD 07/30/2024 12:14 PM [facility] CO2 22 21 - 32 mmol/L LAB CHEMISTRY METHOD 07/30/2024 12:14 PM [facility] Anion Gap 9 3 - 11 LAB CHEMISTRY METHOD 07/30/2024 12:14 PM [facility] Glucose 96 70 - 100 mg/dL LAB CHEMISTRY METHOD 07/30/2024 12:14 PM [facility] BUN 53(H) 5 - 25 mg/dL LAB CHEMISTRY METHOD 07/30/2024 12:14 PM [facility] Creatinine 2.48(H) 0.50 - 1.10 mg/dL LAB CHEMISTRY METHOD 07/30/2024 12:14 PM [facility] eGFR 21(L) >=60 mL/min/1. 73m2 LAB CHEMISTRY METHOD 07/30/2024 12:14 PM [facility] Comment:Calculation based on the??Chronic Kidney Disease Epidemiology Collaboration (CKD-EPI) equation refit??without adjustment for race. BUN/Creatinine Ratio 21.4 LAB CHEMISTRY METHOD 07/30/2024 12:14 PM [facility] Calcium 9.3 8.5 - 10.5 mg/dL LAB CHEMISTRY METHOD 07/30/2024 12:14 PM [facility] AST (SGOT) 23 10 - 42 unit/L LAB CHEMISTRY METHOD 07/30/2024 12:14 PM [facility] ALT (SGPT) 30 10 - 60 unit/L LAB CHEMISTRY METHOD 07/30/2024 12:14 PM [facility] Comment:Results verified by repeat testing Alkaline Phosphatase 84 42 - 121 unit/L LAB CHEMISTRY METHOD 07/30/2024 12:14 PM [facility] Total Protein 6.4 6.0 - 8.0 g/dL LAB CHEMISTRY METHOD 07/30/2024 12:14 PM EST [facility] Albumin 3.4 3.2 - 5.0 g/dL LAB CHEMISTRY METHOD 07/30/2024 12:14 PM EST [facility] Total Bilirubin 0.6 0.0 - 1.4 mg/dL LAB CHEMISTRY METHOD 07/30/2024 12:14 PM EST [facility] Blood Venous blood specimen / Unknown Venipuncture / Unknown 07/30/2024 10:16 AM EST 07/30/2024 10:26 AM EST us Cheryl Moreira PUMPER GAGER LAB BLOOD ORDERABLES Final R esult [facility] [address] [place] [address], [place] [phone] * Cardiac device check - Remote- MURJ (06/30/2024 11:21 AM EST) Only the most recent of5 resultswithin the time period is included. Date Time Interrogation Session [id number] CV DEVICE CHECK Type Interrogation Session Remote Scheduled CV DEVICE CHECK Implantable Pulse Generator Bowl Sander [employer].[facility] CV DEVICE CHECK Implantable Pulse Generator Type ICD CV DEVICE CHECK Implantable Pulse Generator Model [id number] Lawrence(DOROTHY) CV DEVICE CHECK Implantable Pulse Generator Serial Number [id number] CV DEVICE CHECK Implantable Pulse Generator Implant Date [id number] CV DEVICE CHECK Battery Remaining Percentage 35.00 CV DEVICE CHECK Battery Remaining Longevity 32.0 CV DEVICE CHECK Battery Voltage 2.950 CV D EVICE CHECK Battery DIRECTOR WORKFORCE MANAGEMENT Trigger 2.620 CV DEVICE CHECK Battery Status Middle of Service CV DEVICE CHECK Capacitor Charge Time 8.400 CV DEVICE CHECK Dez Statistic RA Percent Paced 96.00 CV DEVICE CHECK Dez Statistic RV Percent Paced 1.00 CV DEVICE CHECK Atrial Tachy Statistic AT/AF Searchlight Percent 1.00 CV DEVICE CHECK Lead Channel [...] VT Ivelisse GONZALEZ CV IMPLANTABLE CARDIAC DEVICE WV OCEDURES Final Result * Thyroid stimulating hormone with reflex to free t4 and free t3 (06/29/2024 10:12 AM EST) TSH 1.26 0.40 - 4.00 mcIU/mL LAB CHEMISTRY METHOD 06/29/2024 3:59 PM EST [facility] Blood Venous blood specimen / Unknown Venipuncture / Unknown 06/29/2024 10:12 AM EST 06/29/2024 10:12 AM EST Cheryl Moreira PUMPER GAGER LAB BLOOD ORDERABLES Final R esult Performing Organization Address City/[facility]/ZIP Co de Phone Number [facility] [address] [place] [address], * Magnesium (06/29/2024 10:12 AM EST) Magnesium 2.4 1.9 - 2.6 mg/dL LAB CHEMISTRY METHOD 06/29/2024 3:52 PM EST [facility] Blood Venous blood specimen / Unknown Venipuncture / Unknown 06/29/2024 10:12 AM EST 06/29/2024 10:12 AM EST Cheryl Moreira PUMPER GAGER LAB BLOOD ORDERABLES Final R esult Performing Organization Address City/[facility]/ZIP Co de Phone Number [facility] [address] [place] [address], * Hm Hepatitis C Screening (07/26/2020) Hepatitis C Screening Abstracted us Historical Provider HEALTH MAINTENANCE Final Result from Last 3 Months or Most Recently Relevant to Health Maintenance Insurance [employer] Care Teams Games Manager Relationship Specialty Start Date End Date Nilay Marquez PA [address] [place] [address] PCP - General Internal Medicine 04/10/21
--- OUTSIDE RECORDS SUMMARY | 2024-08-04 14:41 | XMS_ITS | Encounter Summary ---
Author Organization [facility] Address [address] [place] [address] Care Team Providers Care Packing Shed Supervisor Name Role Phone Nilay Marquez Primary Care Provider [phone] Reason for Visit * Reason Onset Date Comments Results 07/31/2024 Labs Encounter Details Date Type Department Care Team ([facility] st Contact Info) Description 07/31/2024 Telephone [facility] - [facility] [address] [facility] [address] [place] [address] Marcie Singleton MA Results (Labs) Social History Tobacco Use Types Packs/Day Years [...] Progress Notes * Marcie Singleton MA - 07/31/2024 4:14 PM EST Spoke with pAurva, patient's daughter, patient has an appointment with Dr Rojas net . * Marcie Singleton MA - 07/31/2024 3:58 PM EST Called patient, left message on machine for patient to call back. Labs faxed to Dr Hi and PCP. * Marcie Singleton MA - 07/31/2024 3:58 PM EST ----- Message from Tuan Lentz NP sent at 07/30/2024 4:39 PM EST ----- Improvement in creatinine however continues to be elevated. Can you please find out when patient isnext seeing her senior writer Dr. Rojas? documented in this encounter Plan of Treatment Upcoming Encounters Date Type Department Care Team (Late st Contact Info) Description 10/21/2024 11:00 AM EDT Ancillary Procedure [facility] Cardiology [facility] - [facility] [address] [facility] [address] [place] [address] 11/04/2024 1:10 PM EDT Office Visit [facility] - [facility] [address] [facility] [address] [place] [address] Cheryl Moreira NP [address] [facility] [address] [place] [address] 11/13/2024 10:30 AM EDT Office Visit Pulmonolgy - [place] [address] [facility] [address] [place] [address] Marguerite Jimenez NP 175 [facility] 200 [place] [address] documented as of this encounter Visit Diagnoses Not on filedocumented in this encounter Care Teams Packing Shed Supervisor Relationship Specialty Start Date End Date Nilay Marquez PA [address] [place] [address] PCP - General Internal Medicine 04/10/21 documented as of this encounter
--- OUTSIDE RECORDS SUMMARY | 2024-08-04 14:41 | XMS_ITS | Encounter Summary ---
Author Organization [facility] [place] [address] Care Team Providers Care Scrape Gatherer Name Role Phone Nilay Marquez Primary Care Provider [phone] Encounter Details Date Type Department Care Team (Late st Contact Info) Description 07/30/2024 10:15 AM EST Lab Draw Station - [address] [place] [address] HFrEF (heart failure with reduced ejection fraction) (CMS/[facility]) Social History Tobacco Use Types Packs/Day Years [...] Progress Notes * Marcie Singleton MA - 07/30/2024 10:15 AM EST Kindly review in Cheryl's absence * Marcie Singleton MA - 07/30/2024 10:15 AM EST Called patient, left message on machine to call back documented in this encounter Plan of Treatment Upcoming Encounters Date Type Department Care Team (Late st Contact Info) Description 10/21/2024 11:00 AM EDT Ancillary Procedure [facility] - [address] [place] [address] 11/04/2024 1:10 PM EDT Office Visit [facility] - [address] [place] [address] Cheryl Moreira NP [address] [place] [address] 11/13/2024 10:30 AM EDT Office Visit Pulmonolgy - [place] [address] [facility] [address] [place] [address] Marguerite Jimenez, KADEN [address] [facility] [address] [place] [address] documented as of this encounter Procedures Procedure Name Priority Date/Time Associated Diagnosis Comments COMPREHENSIVE METABOLIC PANEL Routine 07/30/2024 10:16 AM EST HFrEF (heart failure with reduced ejection fraction) ([facility]) documented in this encounter Results * (ABNORMAL) Comprehensive metabolic panel (07/30/2024 10:16 AM EST) Sodium 143 133 - 145 mmol/L LAB CHEMISTRY METHOD 07/30/2024 12:14 PM [facility] Potassium 5.0 3.5 - 5.5 mmol/L LAB CHEMISTRY METHOD 07/30/2024 12:14 PM [facility] Chloride 112(H) 96 - 110 mmol/L LAB CHEMISTRY METHOD 07/30/2024 12:14 PM [facility] CO2 22 21 - 32 mmol/L LAB CHEMISTRY METHOD 07/30/2024 12:14 PM [facility] Anion Gap 9 3 - 11 LAB CHEMISTRY METHOD 07/30/2024 12:14 PM [facility] Glucose 96 70 - 100 mg/dL LAB CHEMISTRY METHOD 07/30/2024 12:14 PM [facility] BUN 53(H) 5 - 25 mg/dL LAB CHEMISTRY METHOD 07/30/2024 12:14 PM [facility] Creatinine 2.48(H) 0.50 - 1.10 mg/dL LAB CHEMISTRY METHOD 07/30/2024 12:14 PM [facility] eGFR 21(L) >=60 mL/min/1. 73m2 LAB CHEMISTRY METHOD 07/30/2024 12:14 PM [facility] Comment:Calculation based on the??Chronic Kidney Disease Epidemiology Collaboration (CKD-EPI) equation refit??without adjustment for race. BUN/Creatinine Ratio 21.4 LAB CHEMISTRY METHOD 07/30/2024 12:14 PM [facility] Calcium 9.3 8.5 - 10.5 mg/dL LAB CHEMISTRY METHOD 07/30/2024 12:14 PM [facility] AST (SGOT) 23 10 - 42 unit/L LAB CHEMISTRY METHOD 07/30/2024 12:14 PM [facility] ALT (SGPT) 30 10 - 60 unit/L LAB CHEMISTRY METHOD 07/30/2024 12:14 PM [facility] Comment:Results verified by repeat testing Alkaline Phosphatase 84 42 - 121 unit/L LAB CHEMISTRY METHOD 07/30/2024 12:14 PM [facility] Total Protein 6.4 6.0 - 8.0 g/dL LAB CHEMISTRY METHOD 07/30/2024 12:14 PM [facility] Albumin 3.4 3.2 - 5.0 g/dL LAB CHEMISTRY METHOD 07/30/2024 12:14 PM [facility] Total Bilirubin 0.6 0.0 - 1.4 mg/dL LAB CHEMISTRY METHOD 07/30/2024 12:14 PM [facility] Blood Venous blood specimen / Unknown Venipuncture / Unknown 07/30/2024 10:16 AM EST 07/30/2024 10:26 AM EST us Cheryl Moreira CHAIN TENDER LAB BLOOD ORDERABLES Final R esult [facility] [address] [place] [address], documented in this encounter Visit Diagnoses Diagnosis HFrEF (heart failure with reduced ejection fraction) (CMS/HCC) documented in this encounter Care Teams Scrape Gatherer Relationship Specialty Start Date End Date Nilay Marquez PA [address] [place] [address] PCP - General Internal Medicine 04/10/21 documented as of this encounter
== END 2024-08-04 12:48 | disposition home or self-care (01) ==
PROVIDERS: PCP Physician Assistant; Visit Provider Internal Medicine Nephrology
DX: N18.32 Chronic kidney disease, stage 3b (principal); I10 Essential (primary) hypertension; E87.5 Hyperkalemia; N25.81 Secondary hyperparathyroidism of renal origin; E55.9 Vitamin D deficiency, unspecified
CPT/HCPCS: 99214

== ENCOUNTER → 2024-08-04 11:32 | Outpatient (BNVA) | payer MEDICARE, SELFPAY | PROVIDERS: PCP Physician Assistant; Visit Provider Internal Medicine Nephrology ==

== ENCOUNTER 2024-11-17 13:25 | Outpatient (REF) | payer MEDICARE, SELFPAY ==
--- OUTSIDE RECORDS SUMMARY | 2024-11-17 15:19 | XMS_ITS | Encounter Summary ---
Author Organization [facility] Address [address] [place] [address] Care Team Providers Care Principal Consultant Name Role Phone Nilay Marquez Primary Care Provider [phone] Encounter Details Date Type Department Care Team (Late st Contact Info) Description 11/17/2024 Telephone [facility] [address] [facility] [address] [place] [address] Salud [place]ning MA Social History Tobacco Use Types Packs/Day [...] as of this encounter Progress Notes * Salud Orellana MA - 11/17/2024 9:07 AM EDT provider out sick, Left vm to patient to call back to reschedule appointment documented in this encounter Plan of Treatment Upcoming Encounters Date Type Department Care Team (Late st Contact Info) Description 12/16/2024 3:10 PM EDT Office Visit [facility] [address] [place] [address] Marguerite Jimenez NP [address] [place] [address] 12/30/2024 12:40 PM EDT Office Visit [facility] - [facility] [address] [phone] Cheryl Moreira, STITCH BURNISHER [address] [facility] 154 [place] [phone] documented as of this encounter Visit Diagnoses Not on filedocumented in this encounter Care Teams Principal Consultant Relationship Specialty Start Date End Date Nilay Marquez PA [address] [place] [address] PCP - General Internal Medicine 04/10/21 documented as of this encounter
[2024-11-17 17:38] LABS: MANUAL DIFF FLAG NO
[2024-11-17 17:55] LABS: Basophils Absolute Auto 0.1 X10*3/uL (0.0-0.2); Basophils Percent Auto 0.7 % (0-2); Eosinophils Absolute Auto 0.1 X10*3/uL (0.0-0.4); Eosinophils Percent Auto 1.9 % (0-4); Hematocrit 40.2 % (37.0-47.0); Hemoglobin 12.4 g/dl (12.0-16.0); Imm Gran Abs Auto 0.05 X10*3/uL (0.00-0.03); Imm Gran Pct Auto 0.7 % (0.0-0.4); Lymphocytes Absolute Auto 1.3 X10*3/uL (1.2-4.9); Lymphocytes Percent Auto 19.3 % (20-40); Mean Corpuscular HGB Conc 30.8 g/dl (31.0-35.0); Mean Corpuscular Hemoglobin 30.8 pg (27.0-33.0); Mean Corpuscular Volume 99.8 fL (80.0-98.0); Mean Platelet Volume 10.3 fL (9.4-12.3); Monocytes Absolute Auto 0.5 X10*3/uL (0.1-1.2); Monocytes Percent Auto 6.6 % (2-11); Neutrophils Absolute Auto 4.8 x10*3/uL (2.0-8.3); Neutrophils Percent Auto 70.8 % (45-73); Platelet Count 247 X10*3/uL (160-400); Red Blood Count 4.03 X10*6/uL (4.20-5.50); Red Cell Distribution Width 13.4 % (11.0-16.0); White Blood Count 6.8 X10*3/uL (4.8-10.8)
[2024-11-17 18:11] LABS: Anion Gap 10 (12-20); Blood Urea Nitrogen 42 mg/dL (9-16); Calcium 8.7 mg/dL (8.4-10.2); Carbon Dioxide 19 mmol/L (22-29); Chloride 118 mmol/L (96-108); Estimated Glomerular Filt Rate 19; Phosphorus 4.2 mg/dL (2.7-4.5); Potassium 5.1 mmol/L (3.3-5.1); Sodium 142 mmol/L (135-145)
[2024-11-17 18:19] LABS: Vitamin D 25-OH Total 39.2 ng/mL (>30)
[2024-11-17 18:46] LABS: Parathyroid Hormone Intact 237.2 pg/mL (8.7-77.1)
== END 2024-11-17 13:26 | disposition home or self-care (01) ==
LOC: HO.HKASLDS 13:25
PROVIDERS: Visit Provider Internal Medicine Nephrology
DX: I12.9 Hypertensive chronic kidney disease with stage 1 through stage 4 chronic kidney disease, or unspecified chronic kidney disease (principal); N18.32 Chronic kidney disease, stage 3b; E87.5 Hyperkalemia; N25.81 Secondary hyperparathyroidism of renal origin; E55.9 Vitamin D deficiency, unspecified
CPT/HCPCS: 36415; 80051; 82306; 82310; 82565; 83970; 84100; 84520; 85025

== ENCOUNTER 2024-11-19 12:19 | Outpatient (AMB) | payer MEDICARE, SELFPAY ==
--- NOTE | 2024-11-19 12:56 | HO.NEPHOV ---
Vital Signs 11/19/24 12:57 Height 5 ft 4 in BP 110/80 Blood Pressure Location Rt brachial Position Sitting Pulse 70 Pulse Source Pulse Oximeter Pulse Oximetry (%) 96 Oxygen Delivery Method Room Air Intake Visit Reasons: 3mon follow-up w/labs-LVM Airline Pilot Flight Instructor Required: No Accompanied by: Daughter Allergies codeine Allergy (Verified 11/19/24 12:57) Unknown gabapentin Allergy (Verified 11/19/24 12:57) Unknown isosorbide Allergy (Verified 11/19/24 12:57) Unknown lisinopril Allergy (Verified 11/19/24 12:57) Unknown oxycodone Allergy (Verified 11/19/24 12:57) Unknown HPI Comments Details: Fabiola was seen in follow-up of her chronic kidney disease. She has history of cardiomyopathy and has an AICD in place. She had history of hyperkalemia when she had her AICD fired. She follows up with her drier operator helper. She had been having stress incontinence. She denies any chest pain, shortness of breath, proximal nocturnal dyspnea, orthopnea, pedal edema, hematuria, dysuria, orthostatic symptoms, nausea, vomiting or diarrhea. She is compliant with her medications and diet. Her urine output is good. Her renal functions are stable. She follows up closely with her primary care physician and drier operator helper. [facility] Medical History (Updated 09/05/23 @ 21:20 by Richar Rojas MD) Hyperkalemia Acute kidney injury Essential (primary) hypertension Chronic kidney disease, stage 3b Surgical History AICD (automatic cardioverter/defibrillator) present Family History Mother Heart disease Brother Heart disease Father Kidney disease Family/Other Kidney disease Social History Alcohol intake: never Patient Tobacco Use Status: Former Tobacco user Review of Systems Const All systems reviewed & are unremarkable except as noted in HPI and below Physical Exam Vital Signs: Last Vital Signs Pulse 70 11/19/24 12:57 BP 110/80 11/19/24 12:57 Pulse Ox 96 11/19/24 12:57 Oxygen Delivery Method Room Air 11/19/24 12:57 Const General: comfortable and no acute distress Orientation/consciousness: patient oriented x3 HEENT Head: Yes normocephalic Mouth: Normal oral and palatal mucosa present Eyes EOM: EOMs intact bilaterally Neck Neck: Yes supple Resp Auscultation: clear to auscultation bilaterally Cardio Jugular venous distension: no JVD Rate: regular rate GI Palpation (GI): Soft to palpation Auscultation: normal bowel sounds General: Yes no CVA tenderness Back/Spine/Pelvis Back: no CVA tenderness Skin General skin exam: no rashes or lesions noted Neuro General: patient oriented x3 and moves all extremities Extrem General: Yes no pedal edema Results Reviewed Nephrology Results: Hgb, (12.0-16.0) 12.4 g/dl 11/17/24 WBC, (4.8-10.8) 6.8 X10*3/uL 11/17/24 Plt Count, (160-400) 247 X10*3/uL 11/17/24 Sodium, (135-145) 142 mmol/L 11/17/24 Potassium, (3.3-5.1) 5.1 mmol/L 11/17/24 Chloride, (96-108) 118 mmol/L H 11/17/24 Carbon Dioxide, (22-29) 19 mmol/L L 11/17/24 BUN, (9-16) 42 mg/dL H 11/17/24 Creatinine, (0.5-1.4) 2.51 mg/dL H 11/17/24 Calcium, (8.4-10.2) 8.7 mg/dL Δ 11/17/24 Phosphorus, (2.7-4.5) 4.2 mg/dL 11/17/24 PTH Intact, (8.7-77.1) 237.2 pg/mL H 11/17/24 Assessment & Plan Assessment & Plan (1) Chronic kidney disease, stage 3b: Code(s): N18.32 - Chronic kidney disease, stage 3b Category: Medical (2) Hyperkalemia: Code(s): E87.5 - Hyperkalemia Category: Medical (3) Secondary hyperparathyroidism (of renal origin): Code(s): N25.81 - Secondary hyperparathyroidism of renal origin Category: Medical (4) Essential (primary) hypertension: Code(s): I10 - Essential (primary) hypertension Category: Medical Plan Fabiola has stage IIIB CKD. She had myeloperoxidase antibody initially during her workup but was negative subsequently. Her blood pressure has been at goal. Her serum creatinine has been reasonably stable. She had fluctuation of his serum potassium . I increased her kionex to twice a week and should remain on low K diet. She wants to try PO lokelma if she can afford it. She needs to lose some weight. Her blood pressure is at goal on current medication regimen. She should avoid nonsteroidal anti-inflammatory medications. She is on vitamin-D. She will need activated vitamin-D the near future. I did not make any other medication changes today. All questions answered Orders: Orders Blood Urea Nitrogen 2 Months E87.5 - Hyperkalemia, I10 - Essential (primary) hypertension, N18.32 - Chronic kidney disease, stage 3b, N25.81 - Secondary hyperparathyroidism of renal origin Electrolytes 2 Months E87.5 - Hyperkalemia, I10 - Essential (primary) hypertension, N18.32 - Chronic kidney disease, stage 3b, N25.81 - Secondary hyperparathyroidism of renal origin Creatinine 2 Months E87.5 - Hyperkalemia, I10 - Essential (primary) hypertension, N18.32 - Chronic kidney disease, stage 3b, N25.81 - Secondary hyperparathyroidism of renal origin Medications: New sodium zirconium cyclosilicate (Lokelma) 10 grams PO .three times a week 30 ea 11RF Coding Level of Care Code Est Pt Level 4 (88557) Diagnoses Chronic kidney disease, stage 3b N18.32 Hyperkalemia E87.5 Secondary hyperparathyroidism (of renal origin) N25.81 Essential (primary) hypertension I10
[2024-11-19 12:57] VITALS: BP 110/80; PULSE 70; O2SAT 96
--- OUTSIDE RECORDS SUMMARY | 2024-11-19 13:29 | XMS_ITS ---
Author Name [facility] Organization Unknown Encounters Encounter Type Encounter Reason Primary Diagnosis Location Date Ambulatory Counts include 234 beds at the [facility] 12/20/2021 Ambulatory Ventricular tachycardia [email or web address] 12/20/2021 Care Team Organization Name Specialty Phone Email Start Date End Da te [email or web address] 12/20/2021 12/20/2021 [email or web address] 12/20/2021
== END 2024-11-19 13:21 | disposition home or self-care (01) ==
LOC: HO.HKAS 12:19
PROVIDERS: PCP Physician Assistant; Visit Provider Internal Medicine Nephrology
DX: N18.32 Chronic kidney disease, stage 3b (principal); E87.5 Hyperkalemia; N25.81 Secondary hyperparathyroidism of renal origin; I10 Essential (primary) hypertension
CPT/HCPCS: 99214

== ENCOUNTER → 2024-11-19 12:19 | Outpatient (BNVA) | payer MEDICARE, SELFPAY | PROVIDERS: PCP Physician Assistant; Visit Provider Internal Medicine Nephrology | DX: I12.9 Hypertensive chronic kidney disease with stage 1 through stage 4 chronic kidney disease, or unspecified chronic kidney disease (principal); N18.32 Chronic kidney disease, stage 3b; E87.5 Hyperkalemia; N25.81 Secondary hyperparathyroidism of renal origin | CPT/HCPCS: 99212 ==

== ENCOUNTER 2025-02-11 11:07 | Outpatient (AMB) | payer MEDICARE, SELFPAY ==
--- NOTE | 2025-02-11 11:13 | HO.NEPHOV_ITS ---
Vital Signs 02/11/25 11:17 Height 5 ft 4 in Weight 297 lb BMI 51.0 BP 130/80 Blood Pressure Location Rt brachial Position Sitting Pulse 70 Pulse Source Pulse Oximeter Pulse Oximetry (%) 97 Oxygen Delivery Method Room Air Intake Visit Reasons: [facility] Digital Cartographic Technician Required: No Accompanied by: Daughter Allergies codeine Allergy (Verified 02/11/25 11:17) Unknown gabapentin Allergy (Verified 02/11/25 11:17) Unknown isosorbide Allergy (Verified 02/11/25 11:17) Unknown lisinopril Allergy (Verified 02/11/25 11:17) Unknown oxycodone Allergy (Verified 02/11/25 11:17) Unknown HPI Comments Details: Fabiola was seen in follow-up of her acute on chronic kidney disease. She has history of cardiomyopathy and has an AICD in place. She recently had a fall and was in the hospital for a week. Her serum creatinine was higher than baseline with lower serum bicarb and high K. She has history of hyperkalemia . She claims to be compliant with diet and twice a week of K lowering medication. She follows up with her casting tester closely. She denies any chest pain, shortness of breath, proximal nocturnal dyspnea, orthopnea, pedal edema, hematuria, dysuria, orthostatic symptoms, nausea, vomiting or diarrhea. Her urine output is good. [facility] Medical History (Updated 02/11/25 @ 11:17 by Richar Rojas MD) Hyperkalemia Acute kidney injury Essential (primary) hypertension Chronic kidney disease, stage 3b Surgical History AICD (automatic cardioverter/defibrillator) present Family History Mother Heart disease Brother Heart disease Father Kidney disease Family/Other Kidney disease Social History Alcohol intake: never Patient Tobacco Use Status: Former Tobacco user Review of Systems Const All systems reviewed & are unremarkable except as noted in HPI and below Physical Exam Vital Signs: Last Vital Signs Pulse 70 02/11/25 11:17 BP 130/80 02/11/25 11:17 Pulse Ox 97 02/11/25 11:17 Oxygen Delivery Method Room Air 02/11/25 11:17 BMI result Body Mass Index 51.0 Const General: comfortable and no acute distress Orientation/consciousness: patient oriented x3 HEENT Head: Yes normocephalic Mouth: Normal oral and palatal mucosa present Eyes EOM: EOMs intact bilaterally Neck Neck: Yes supple Resp Auscultation: clear to auscultation bilaterally Cardio Jugular venous distension: no JVD Rate: regular rate GI Palpation (GI): Soft to palpation Auscultation: normal bowel sounds General: Yes no CVA tenderness Back/Spine/Pelvis Back: no CVA tenderness Skin General skin exam: no rashes or lesions noted Neuro General: patient oriented x3 and moves all extremities Extrem General: Yes no pedal edema Results Reviewed Nephrology Results: Hgb, (12.0-16.0) 12.4 g/dl 11/17/24 WBC, (4.8-10.8) 6.8 X10*3/uL 11/17/24 Plt Count, (160-400) 247 X10*3/uL 11/17/24 Sodium, (135-145) 142 mmol/L 11/17/24 Potassium, (3.3-5.1) 5.1 mmol/L 11/17/24 Chloride, (96-108) 118 mmol/L H 11/17/24 Carbon Dioxide, (22-29) 19 mmol/L L 11/17/24 BUN, (9-16) 42 mg/dL H 11/17/24 Creatinine, (0.5-1.4) 2.51 mg/dL H 11/17/24 Calcium, (8.4-10.2) 8.7 mg/dL Δ 11/17/24 Phosphorus, (2.7-4.5) 4.2 mg/dL 11/17/24 PTH Intact, (8.7-77.1) 237.2 pg/mL H 11/17/24 Assessment & Plan Assessment & Plan (1) Chronic kidney disease, stage 3b: Code(s): N18.32 - Chronic kidney disease, stage 3b Category: Medical (2) Essential (primary) hypertension: Code(s): I10 - Essential (primary) hypertension Category: Medical (3) Hyperkalemia: Code(s): E87.5 - Hyperkalemia Category: Medical (4) Secondary hyperparathyroidism (of renal origin): Code(s): N25.81 - Secondary hyperparathyroidism of renal origin Category: Medical (5) Vitamin D deficiency: Code(s): E55.9 - Vitamin D deficiency, unspecified Category: Medical (6) Acute kidney injury superimposed on CKD: Code(s): N17.9 - Acute kidney failure, unspecified; N18.9 - Chronic kidney disease, unspecified Category: Medical Plan Fabiola has stage IIIB CKD. She has BRYANT on CKD due to tubular injury. She had myeloperoxidase antibody initially during her workup but was negative subsequen tly. Her blood pressure has been at goal. She should continue kionex twice a week and should remain on low K diet. She may need more of it. She needs to lose some weight. Her blood pressure is at goal on current medication regimen. She should avoid nonsteroidal anti-inflammatory medications. She is on vitamin-D. She will need activated vitamin-D the near future. I did not make any other medication changes today. All questions answered Orders: Orders Creatinine 1 Month E55.9 - Vitamin D deficiency, unspecified, E87.5 - Hyperkalemia, I10 - Essential (primary) hypertension, N17.9 - Acute kidney failure, unspecified, N18.32 - Chronic kidney disease, stage 3b, N18.9 - Chronic kidney disease, unspecified, N25.81 - Secondary hyperparathyroidism of renal origin Blood Urea Nitrogen 1 Month E55.9 - Vitamin D deficiency, unspecified, E87.5 - Hyperkalemia, I10 - Essential (primary) hypertension, N17.9 - Acute kidney failure, unspecified, N18.32 - Chronic kidney disease, stage 3b, N18.9 - Chronic kidney disease, unspecified, N25.81 - Secondary hyperparathyroidism of renal origin Electrolytes 1 Month E55.9 - Vitamin D deficiency, unspecified, E87.5 - Hyperkalemia, I10 - Essential (primary) hypertension, N17.9 - Acute kidney failure, unspecified, N18.32 - Chronic kidney disease, stage 3b, N18.9 - Chronic kidney disease, unspecified, N25.81 - Secondary hyperparathyroidism of renal origin Coding Level of Care Code Est Pt Level 4 (46528) Diagnoses Chronic kidney disease, stage 3b N18.32 Essential (primary) hypertension I10 Hyperkalemia E87.5 Secondary hyperparathyroidism (of renal origin) N25.81 Vitamin D deficiency E55.9 Acute kidney injury superimposed on CKD N17.9; N18.9
[2025-02-11 11:17] VITALS: BP 130/80; PULSE 70; O2SAT 97; BMI 51.0
--- OUTSIDE RECORDS SUMMARY | 2025-02-11 15:25 | XMS_ITS ---
Author Name [facility] Organization Unknown Encounters Encounter Type Encounter Reason Primary Diagnosis Location Date Ambulatory [facility] [employer] 12/20/2021 Ambulatory Ventricular tachycardia [email or web address] 12/20/2021 Care Team Organization Name Specialty Phone Email Start Date End [facility] [employer] 12/20/2021 12/20/2021 [employer] 12/20/2021
--- OUTSIDE RECORDS SUMMARY | 2025-02-11 15:25 | XMS_ITS | Clinical Summary ---
Author Organization [facility] Address [address] [place] [id number] Care Team Providers Care Airline Stewardess Name Role Phone Unknown Primary Care Provider [phone] Allergies Active Allergy Reactions Criticality Noted Date Comments Codeine Unknown/Patient and Family Unable to Define Medium 12/20/2021 Gabapentin Myalgia/Myositis/Art hralgia/Arthri tis Low 12/20/2021 Isosorbide Nitrate Unknown/Patient and Family Unable to Define Medium 12/20/2021 Social History Tobacco Use Types Packs/Day Years Used Date Smoking Tobacco: Never Assessed Comments Unknown Sex and Gender Information Value Date Recorded Sex Assigned at Not on file Legal Sex Female 1:35 PM EDT Gender Identity Not on file Sexual Orientation Not on file Plan of Treatment Health Maintenance Due Date Last Done Comments Advance Care Planning 1960 Hepatitis C Virus Screening 1960 DTaP/Tdap/Td Vaccines (1 - Tdap) 1977 Mammogram 1998 Colonoscopy 09/21/2003 Pneumococcal Vaccines 50+ (1 of 1 - PCV) 2008 Zoster (Shingles) Vaccine (1 of 2) 2008 DXA Bone Density (Females,Ages 65 and older) 09/21/2023 COVID-19 Vaccine (3 - 2023-2 5 season) 2024 10/24/2020, 09/26/2020 Influenza Vaccine 01/01/2025 RSV Vaccine 60 years and older and Patients (1 - 1-dose 75+ series) 2033 Hepatitis B Vaccines Aged Out No long er eligible based on patient's age to complete this topic Insurance [facility] on file Care Teams Airline Stewardess Relationship Specialty Start Date End Date Unknown Unknow Provider Address PCP - General 12/20/21
--- OUTSIDE RECORDS SUMMARY | 2025-02-11 15:25 | XMS_ITS | Clinical Summary ---
Author Organization [address] [place] [address] Address [address] [facility] [place] [address] Phone Care Team Providers Care Senior Partner Name Role Phone Nilay Marquez Primary Care Provider Allergies Active Allergy Reactions Criticality Noted Date Comments Codeine Nausea And Vomiting 01/30/2021 Gabapentin Muscular Issues 01/30/2021 Isosorbide Nausea And Vomiting High 11/06/2021 CHEST PAIN Other reaction(s): Other (See Comments), Other (see comments), Unknown, Unknown/Patient and Family Unable to Define Isosorbide Dinitrate Nausea And Vomiting 2023 Lisinopril 07/10/2021 Warning Oxycodone 06/21/2021 Medications atorvastatin (LIPITOR) 40 mg tablet Take 1 tablet (40 mg total) by mouth. Active levothyroxine (SYNTHROID, LEVOTHROID) 175 mcg tablet Take 1 tablet (175 mcg total) by mouth 1 (one) time each day. 04/29/20 23 Active omeprazole (PriLOSEC) [address] capsule Take 1 capsule (40 mg total) by mouth. Active sodium polystyrene (KAYEXALATE) powder Take 30 g by mouth 1 (one) time per week. 04/28/20 24 Active Tylenol Extra Strength 500 mg tablet Take 2 tablets (1,000 mg total) by mouth every 8 (eight) hours if needed for moderate pain. Patient take 2 tab as needed for pain [id number] PRT 08/01/19 24 Active hydrALAZINE (APRESOLINE) 50 mg tablet TAKE 1 TABLET BY MOUTH THREE TIMES DAILY 270 tablet 1 09/05/19 25 Active propranoloL (INDERAL) 60 mg tablet TAKE 1 TABLET BY MOUTH THREE TIMES DAILY IN ADDITION TO THE 40 MG TABLET, FOR A TOTAL DAILY DOSE OF 100 MG 3 TIMES DAILY 270 tablet 1 09/05/19 25 Active propranoloL (INDERAL) 40 mg tablet Take 1 Tablet by mouth 3 times daily. In addition to 60mg tab for total of 100mg 3x a day 270 tablet 1 09/05/19 25 Active amiodarone (PACERONE) 200 mg tablet Take 2 tablets (400 mg total) by mouth 1 (one) time each day. 180 tablet 3 09/17/19 25 Active isosorbide mononitrate (IMDUR) 60 mg 24 hr tablet Take 1 tablet by mouth once daily 30 tablet 1 12/26/19 25 Active mexiletine (MEXITIL) 200 mg capsule Take 2 capsules by mouth twice daily 360 capsule 2 01/27/20 25 Active aspirin 81 mg chewable tablet Chew 1 tablet (81 mg total) 1 (one) time each day. Active sodium bicarbonate 650 mg tablet Take 1 tablet (650 mg total) by mouth 2 (two) times a day. Active torsemide (DEMADEX) 10 mg tablet Take 1 tablet (10 mg total) by mouth 1 (one) time each day. 30 each 2 01/27/20 25 025 Active mexiletine (MEXITIL) 200 mg capsule Take 2 capsules by mouth twice daily 360 capsule 1 07/30/19 25 025 Discontinued torsemide (DEMADEX) 5 mg tablet Take 4 tablets (20 mg total) by mouth 1 (one) time each day if needed (as directed for volume overload). 10 tablet 3 10/01/19 25 025 Discontinued(Do se adjustment) Active Problems Problem Noted Date Diagnosed Date History of ventricular tachycardia 08/02/2023 COPD type A (CMS/HCC V24, CMS/HCC V28) 3 Nocturnal hypoxia 08/04/2021 Overview (08/02/2023): Overnight oximetry on 07/23/2021 on NIV: 1. Lowest oxygen 81% 2. Oxygen level under 88% 6.5 minutes. 3. Basal oxygen 94%. No supplemnetal oxygen needed. HFrEF (heart failure with re duced ejection fraction) ([facility] V24, [facility] V28) 07/23/2021 Severe obesity ([facility] V24, [facility]/HCC V28) 2021 Hypertension 06/21/2021 Non-ischemic cardiomyopathy (CMS/[facility] V24, [facility]/HC C V28) 06/21/2021 Overview (08/02/2023): 04/06/21 Cath @ [facility] with Dr. Price - Findings consistent with non-ischemic cardiomyopathy of unclear chronicity and VT. Continue anti-rhythmic therapy and consider ICD. Syncope 06/21/2021 Ventricular tachycardia ([facility] V24, [facility] V2 8) 06/21/2021 Overview (08/02/2023): 04/21/21 Device Implant @ [facility] with Dr. Parker - [employer] Dual Chamber AICD Anxiety 01/30/2021 CKD (chronic kidney disease) 01/30/2021 High cholesterol 01/30/2021 Hypothyroidism 01/30/2021 Osteoarthritis of both knees 01/30/2021 Encounters Date Type Department Care Team Description 01/26/2025 12:50 PM EDT Ancillary Procedure [facility] [address] [place] [address] 01/26/2025 Telephone [facility] [address] [place] [address] Bora Ruiz MD 01/07/2025 Telephone [facility] [address] [place] [address] Cheryl Moreira NP 12/28/2024 Telephone [facility] [place] [address] [place] [address] Marguerite Jimenez NP 12/26/2024 1:20 AM EDT Ancillary Procedure [facility] [address] [place] [address] 12/25[facility] [address] [place] [phone] Salud Browning MA 12/23/2024 1:15 PM EDT [facility] [address] [place] [phone] Pulmonary emphysema, unspecified emphysema type (CMS/HCC V24, CMS/HCC V28); HFrEF (heart failure with reduced ejection fraction) (CMS/HCC V24, CMS/HCC V28) 12/22/2024 [facility] [address] [facility] [address] [place] [phone] Marguerite Jimenez NP 12/16/2024 3:10 PM EDT [facility] [address] [place] [phone] Marguerite Jimenez NP Pulmonary emphysema, unspecified emphysema type (CMS/HCC V24, CMS/HCC V28) (Primary Dx); HFrEF (heart failure with reduced ejection fraction) (CMS/HCC V24, CMS/HCC V28); Non-ischemic cardiomyopathy (CMS/HCC V24, CMS/HCC V28); Nocturnal hypoxia; Severe obesity (CMS/HCC V24, CMS/HCC V28) 11/30/2024 10:25 AM EDT Ancillary Procedure [facility] [address] [place] [address] 11/17/2024 [facility] [address] [phone] Salud Browning MA from Last 3 Months Surgical History Surgery Date Site/Laterality Comments CARDIAC CATHETERIZATION Medical History Medical History Date Comments Anxiety Hyperlipidemia Hypercapnic respiratory failure (CMS/HCC V24, CM S/HCC V28) Hypothyroidism Syncope Cardiomyopathy (CMS/HCC V24, CMS/HCC V28) Hypertension Ventricular tachycardia ([facility] V24, [facility] V2 8) Chronic kidney disease CHF (congestive heart failure) ([facility] V24, [facility] V28) Family History Medical History Relation Name Comments [...] Sign Reading Time Taken Comments Blood Pressure 120/79 12/16/2024 3:14 PM EDT Pulse 70 12/16/2024 3:14 PM EDT Temperature 36.3 C (97.3 F) 12/16/2024 3:14 PM EDT Respiratory Rate 18 12/16/2024 3:14 PM EDT Oxygen Saturation 96% 12/16/2024 3:14 PM EDT Inhaled Oxygen Concentration - - Weight 130 kg (287 lb) 09/30/2024 10:09 AM EDT Height 165.1 cm (5' 5 ) 09/30/2024 10:09 AM EDT Body Mass Index 47.76 09/30/2024 10:09 AM EDT Plan of Treatment Upcoming Encounters Date Type Department Care Team (Late st Contact Info) Description 03/25/2025 1:10 PM EDT Office Visit [facility] - [facility] [address] [facility] [address] [place] [phone] Cheryl Moreira NP [address] [place] [phone] 06/23/2025 1:00 PM EST Office Visit [facility] - [place] [address] [place] [phone] Marguerite Jimenez NP [address] [place] [address] Health Maintenance Due Date Last Done Comments Breast Cancer Screening 1960 DTaP,Tdap,and Td Vaccines (1 - Tdap) 1977 Pneumococcal Vaccine: 50+ Years (1 of 2 - PCV) 1977 Zoster Vaccines (1 of 2) 1977 RSV Immunization Adult Patients (1 - Risk 60-74 years 1-dose series) 2018 COVID-19 Vaccine (3 - Moderna risk series) 11/21/2020 10/24/2020, 09/26/2020 Colorectal Cancer Screening: Colonoscopy 05/12/2022 Medicare Annual Wellness Visit 05/12/2022 Osteoporosis Screening (Bone Density Screening) 05/12/2022 Social Influencers of Health Screening 05/12/2022 Falls Risk Assessment 09/21/2023 Depression Screening 06/03/2024 Influenza Vaccine (#1) 2025 Hypertension/CHF/CAD Annual BMP Blood Test 01/27/2026 01/27/2025, 07/30/2024, 06/29/2024, Additional history exists Cholesterol Screening (Lipid Panel) [...] age to complete this topic Meningococcal B Vaccine Aged Out No l onger eligible based on patient's age to complete this topic RSV Immunization Patients Under 20 months Aged Out No longer eligible based on patient's age to complete this topic Varicella Vaccines Aged Out No longer eligible based on patient's age to complete this topic Medical Devices Implanted Type Area Bush Regenerator Device Identifier Shelf Expiration Date Model / Serial / Lot Abbt-Randi [id number] Lawrence(Tm) [id number] Implanted:04/03 (Quantity not on file) Cardiac ICD [facility] [employer] [id number] LAWRENCE(TM ) / [id number] / Procedures Procedure Name Priority Date/Time Associated Diagnosis Comments B-TYPE NATRIURETIC PEPTIDE Routine 01/27/2025 9:26 AM EDT HFrEF (heart failure with reduced ejection fraction) (CMS/HCC V24, CMS/HCC V28) THYROID STIMULATING HORMONE WITH REFLEX TO FREE T4 AND FREE T3 Routine 01/27/2025 9:26 AM EDT Ventricular tachycardia (CMS/HCC V24, CMS/HCC V28) care home current use of amiodarone COMPREHENSIVE METABOLIC PANEL Routine 01/27/2025 9:26 AM EDT Ventricular tachycardia (CMS/HCC V24, CMS/HCC V28) CARDIAC DEVICE CHECK- REMOTE- MURJ Routine 01/26/2025 12:47 PM EDT CARDIAC DEVICE CHECK- REMOTE- MURJ Routine 12/26/2024 1:16 AM EDT PULMONARY FUNCTION TESTING Routine 12/23/2024 1:22 PM EDT Pulmonary emphysema, unspecified emphysema type (CMS/HCC V24, CMS/HCC V28) HFrEF (heart failure with reduced ejection fraction) (CMS/HCC V24, CMS/HCC V28) CARDIAC DEVICE CHECK- REMOTE- MURJ Routine 11/30/2024 10:24 AM EDT LIPID PANEL Routine 01/15/2023 HEPATITIS C SCREENING Routine 07/26/2020 from Last 3 Months or Most Recently Relevant to Health Maintenance Results * Thyroid stimulating hormone with reflex to free t4 and free t3 (01/27/2025 9:26 AM EDT) [facility] TSH 2.95 0.40 - 4.00 mcIU/mL LAB CHEMISTRY METHOD 01/27/2025 4:55 PM EDT [facility] Blood Venous blood specimen / Unknown Venipuncture / Unknown 01/27/2025 9:26 AM EDT 01/27/2025 9:26 AM EDT Cheryl Moreira RETAIL ZONE SPECIALIST LAB BLOOD ORDERABLES Final R esult [facility] [address] [place] [address], [place] [phone] * B-type natriuretic peptide (01/27/2025 9:26 AM EDT) BNP 91 <=100 pcg/mL LAB CHEMISTRY METHOD 01/27/2025 3:08 PM EDT [facility] Blood Venous blood specimen / Unknown Venipuncture / Unknown 01/27/2025 9:26 AM EDT 01/27/2025 9:26 AM EDT Cheryl Moreira RETAIL ZONE SPECIALIST LAB BLOOD ORDERABLES Final R esult [facility] [address] [place] [address], [place] [phone] * (ABNORMAL) Comprehensive metabolic panel (01/27/2025 9:26 AM EDT) Pathologist [facility] Sodium 142 133 - 145 mmol/L LAB CHEMISTRY METHOD 01/27/2025 4:36 PM EDT [facility] Potassium 5.0 3.5 - 5.5 mmol/L LAB CHEMISTRY METHOD 01/27/2025 4:36 PM EDT [facility] Chloride 114(H) 96 - 110 mmol/L LAB CHEMISTRY METHOD 01/27/2025 4:36 PM EDT [facility] CO2 24 21 - 32 mmol/L LAB CHEMISTRY METHOD 01/27/2025 4:36 PM EDT [facility] Anion Gap 4 3 - 11 LAB CHEMISTRY METHOD 01/27/2025 4:[address] [facility] Glucose 93 70 - 100 mg/dL LAB CHEMISTRY METHOD 01/27/2025 4:[address] [facility] BUN 31(H) 5 - 25 mg/dL LAB CHEMISTRY METHOD 01/27/2025 4:[address] [facility] Creatinine 2.25(H) 0.50 - 1.10 mg/dL LAB CHEMISTRY METHOD 01/27/2025 4:[address] [facility] eGFR 24(L) >=60 mL/min/1. 73m2 LAB CHEMISTRY METHOD 01/27/2025 4:[address] [facility] Comment:Calculation based on the Chronic Kidney Disease Epidemiology Collaboration (CKD-EPI) equation refit without adjustment for race. BUN/Creatinine Ratio 13.8 LAB CHEMISTRY METHOD 01/27/2025 4:[address] [facility] Calcium 8.5 8.5 - 10.5 mg/dL LAB CHEMISTRY METHOD 01/27/2025 4:[address] [facility] AST (SGOT) 33 10 - 42 unit/L LAB CHEMISTRY METHOD 01/27/2025 4:[address] [facility] ALT (SGPT) 51 10 - 60 unit/L LAB CHEMISTRY METHOD 01/27/2025 4:[address] [facility] Alkaline Phosphatase 101 42 - 121 unit/L LAB CHEMISTRY METHOD 01/27/2025 4:[address] [facility] Total Protein 5.9(L) 6.0 - 8.0 g/dL LAB CHEMISTRY METHOD 01/27/2025 4:[address] [facility] Albumin 3.1(L) 3.2 - 5.0 g/dL LAB CHEMISTRY METHOD 01/27/2025 4:[address] [facility] Total Bilirubin 0.4 0.0 - 1.4 mg/dL LAB CHEMISTRY METHOD 01/27/2025 4:36 PM EDT [facility] Blood Venous blood specimen / Unknown Venipuncture / Unknown 01/27/2025 9:26 AM EDT 01/27/2025 9:26 AM EDT us Cheryl Moreira RETAIL ZONE SPECIALIST LAB BLOOD ORDERABLES Final R esult [facility] [address] [place] [address], * Cardiac device check - Remote- MURJ (01/26/2025 12:47 PM EDT) Only the most recent of3 resultswithin the time period is included. Date Time Interrogation Session [id number] CV DEVICE CHECK Type Interrogation Session Remote Scheduled CV DEVICE CHECK Implantable Pulse Generator Bush Regenerator [employer] CV DEVICE CHECK Implantable Pulse Generator Type ICD CV DEVICE CHECK Implantable Pulse Generator Model [id number] Lawrence(DOROTHY) CV DEVICE CHECK Implantable Pulse Generator Serial Number [id number] CV DEVICE CHECK Implantable Pulse Generator Implant Date [id number] CV DEVICE CHECK Battery Remaining Percentage 31.00 CV DEVICE CHECK Battery Remaining Longevity 30.0 CV DEVICE CHECK Battery Voltage 2.930 CV D EVICE CHECK Battery PRODUCTION ASSEMBLY SUPERVISOR Trigger 2.620 CV DEVICE CHECK Battery Status Middle of Service CV DEVICE CHECK Capacitor Charge Time 8.400 CV DEVICE CHECK Dez Statistic RA Percent Paced 96.00 CV DEVICE CHECK Dez Statistic RV Percent Paced 2.80 CV DEVICE CHECK Atrial Tachy Statistic AT/AF [place] Percent 0.00 CV DEVICE CHECK Lead Channel Sensing Intrinsic Amplitude 3.600 CV DEVICE CHECK Lead Channel Setting Sensing Sensitivity 0.30 CV DEVICE CHECK Lead Channel Impedance Value 350 CV DEVICE CHECK Lead Channel Pacing Threshold Amplitude 1.125 CV DEVICE CHECK Lead Channel Pacing Threshold Pulse Width 0.5 CV DEVICE CHECK Lead Channel RA Pacing Threshold Date 2025-01-23 CV DEVICE CHECK Lead Channel Setting Pacing Amplitude 2.125 CV DEVICE CHECK Lead Channel Setting Pacing Pulse Width 0.5 CV DEVICE CHECK Lead Channel Sensing Intrinsic Amplitude 12.000 CV DEVICE CHECK Lead Channel Setting Sensing Sensitivity 0.50 CV DEVICE CHECK Lead Channel Impedance Value 350 CV DEVICE CHECK Lead Channel Pacing Threshold Amplitude 0.750 CV DEVICE CHECK Lead Channel Pacing Threshold Pulse Width 0.5 CV DEVICE CHECK Lead Channel RV Pacing Threshold Date 2025-01-23 CV DEVICE CHECK Lead Channel Setting Pacing Amplitude 1.000 CV DEVICE CHECK Lead Channel Setting Pacing [...] DEVICE CHECK Therapy Statistic Recent ATP Delivered 0 CV DEVICE CHECK Shock Measured Impedance 75 CV DEVICE CHECK Zone Setting Type Category VT CV DEVICE CHECK Rate 150 CV DEVICE CHECK Therapies 3 x Burst+Scan,25.0J,3 6.0J,40.0J x 2 CV DEVICE CHECK Zone Setting Status On CV DEVICE CHECK Zone ID 1 CV DEVICE CHECK Zone Setting Type Category VT CV DEVICE CHECK Rate 182 CV DEVICE CHECK Therapies 3 x Burst+Scan,25.0J,3 6.0J,40.0J x 2 CV DEVICE CHECK Zone Setting Status On CV DEVICE CHECK Zone ID 2 CV DEVICE CHECK Zone Setting Type Category VF CV DEVICE CHECK Rate 214 CV DEVICE CHECK Therapies 36.0J,36.0J,40.0J x 4 CV DEVICE CHECK Zone Setting Status On CV DEVICE CHECK Zone ID 3 CV DEVICE CHECK Date of Service 2025-02-26 CV DEVICE CHECK Anatomical Region Laterality Modality Device Interroga tion 01/23/2025 9:47 PM EDT Impressions 01/26/2025 12:40 PM EDT Thoracic Impedance Out of Range Forwarded to triage to evaluate for HF symptoms * Heart failure diagnostics assessed through the device * Thoracic impedance graph indicates a decreasing impedance trend Narrative Procedure Note Ivelisse Simons PA - 01/26/2025 IMPRESSION: Thoracic Impedance Out of Range Forwarded to triage to evaluate for HF symptoms * Heart failure diagnostics assessed through the device * Thoracic impedance graph indicates a decreasing impedance trend us Ivelisse GONZALEZ CV IMPLANTABLE CARDIAC DEVICE ID OCEDURES Final Result * Lipid panel (01/15/2023) LDL/HDL Ratio 0 Comment:No Interpretation, A bstracted Triglycerides 0 mg/dL Comment:No Interpretation, A bstracted Cholesterol 0 mg/dL Comment:No Interpretation, A bstracted HDL 0 mg/dL Comment:No Interpretation, A bstracted LDL Cholesterol 0 mg/dL Comment:No Interpretation, A bstracted Blood Venous blood specimen / Unknown Historical Provider LAB BLOOD ORDERABLES Sylvia l Result * Hepatitis C Screening (07/26/2020) Hepatitis C Screening Abstracted Historical Provider HEALTH MAINTENANCE Final Result from Last 3 Months or Most Recently Relevant to Health Maintenance Insurance [employer] MEDICARE Care Teams Senior Partner Relationship Specialty Start Date End Date Nilay Marquez PA [address] [place] [phone] PCP - General Internal Medicine 04/10/21
--- OUTSIDE RECORDS SUMMARY | 2025-02-11 15:25 | XMS_ITS | Clinical Summary ---
Author Organization [facility] Address [address] [phone] Phone Care Team Providers Care Ec Teacher Name Role Phone Nilay Marquez Primary Care Provider + Social History Tobacco Use Types Packs/Day Years Used Date Smoking Tobacco: Never Assessed Education Answer Date Recorded Are you interested in more education? Not on obie e 09/29/2022 Are you concerned about learning? Not on file 09/29/2022 No 09/29/2022 No 09/29/2022 Digital Access Answer Date Recorded No 10/30/2022 No 10/30/2022 Reliable internet access at home? Not on file 10/30/2022 Device with a working camera? Not on file Comments Unknown Sex and Gender Information Value Date Recorded Sex Assigned at Not on file Legal Sex Female 1:19 PM EST Gender Identity Not on file Sexual Orientation Not on file Plan of Treatment Not on file Medical Devices Not on file Insurance [facility] NON NSP PCP [facility] [employer] NON NSPG PCP [facility] [employer] NON NSPG PCP [facility] [employer] WELLS[employer] NON NSPG PCP S[employer] WELLSENSE NON NSPG PCP [facility] [employer] WELL[employer] NON NSPG PCP [employer] Care Teams Ec Teacher Relationship Specialty Start Date End Date Nilay Marquez PA [email or web address] PCP - General 12/31/22 Additional Source Comments The information contained in this document represents components of the legal health record. It is not the complete legal health record.[facility]
--- OUTSIDE RECORDS SUMMARY | 2025-02-11 15:25 | XMS_ITS | Clinical Summary ---
Author Organization [facility] Address [address] [place] [address] Phone Care Team Providers Care Cashiers Bussers Food Runners Name Role Phone Nilay Marquez MD Primary Care Provider [phone] Allergies Active Allergy Reactions Criticality Noted Date [...] 08/22/2020 11/22/2021 Allergic rhinitis 07/11/2020 11/22/2021 Immunizations Immunization Administration Dates Next Due Moderna SARS-COV-2 10/24/2020,09/26/2020 [...] Comments Breast Cancer Screening 1960 Pneumococcal Vaccine: 50+ Ye ars (1 of 2 - PCV) 1977 Colorectal Cancer Screening: Annual FOBT 09/21/2007 Colorectal Cancer Screening: Colonoscopy 09/21/2007 Colorectal Cancer Screening: Sigmoidoscopy 09/21/2007 Influenza Vaccine (#1) 2025 Hepatitis B Vaccine Aged Out No longe r eligible based on patient's age to complete this topic Insurance [facility] Medicare Care Teams Cashiers Bussers Food Runners Relationship Specialty Start Date End Date Nilay Marquez MD [facility] [place] [address] PCP - General Physician Bench Assembler Electrical 08/22/20
== END 2025-02-11 11:37 | disposition home or self-care (01) ==
LOC: HO.HKAS 11:08
PROVIDERS: PCP Physician Assistant; Visit Provider Internal Medicine Nephrology
DX: I12.9 Hypertensive chronic kidney disease with stage 1 through stage 4 chronic kidney disease, or unspecified chronic kidney disease (principal); N18.32 Chronic kidney disease, stage 3b; E87.5 Hyperkalemia; N25.81 Secondary hyperparathyroidism of renal origin; E55.9 Vitamin D deficiency, unspecified; N17.9 Acute kidney failure, unspecified; N18.9 Chronic kidney disease, unspecified
CPT/HCPCS: 99214

== ENCOUNTER → 2025-02-11 11:07 | Outpatient (BNVA) | payer MEDICARE, SELFPAY | PROVIDERS: PCP Physician Assistant; Visit Provider Internal Medicine Nephrology | DX: N18.32 Chronic kidney disease, stage 3b (principal); I10 Essential (primary) hypertension; E87.5 Hyperkalemia; N25.81 Secondary hyperparathyroidism of renal origin; E55.9 Vitamin D deficiency, unspecified; N17.9 Acute kidney failure, unspecified | CPT/HCPCS: 99212 ==

== ENCOUNTER 2025-03-10 13:35 | Outpatient (REF) | payer MEDICARE, SELFPAY ==
[2025-03-10 18:52] LABS: Anion Gap 12 (12-20); Blood Urea Nitrogen 35 mg/dL (9-16); Carbon Dioxide 23 mmol/L (22-29); Chloride 112 mmol/L (96-108); Estimated Glomerular Filt Rate 21; Potassium 5.9 mmol/L (3.3-5.1); Sodium 141 mmol/L (135-145)
== END 2025-03-10 13:36 | disposition home or self-care (01) ==
LOC: HO.HKASLDS 13:35
PROVIDERS: PCP Physician Assistant; Visit Provider Internal Medicine Nephrology
DX: I12.9 Hypertensive chronic kidney disease with stage 1 through stage 4 chronic kidney disease, or unspecified chronic kidney disease (principal); N17.9 Acute kidney failure, unspecified; N18.32 Chronic kidney disease, stage 3b; N25.81 Secondary hyperparathyroidism of renal origin; E55.9 Vitamin D deficiency, unspecified; E87.5 Hyperkalemia
CPT/HCPCS: 36415; 80051; 82565; 84520

== ENCOUNTER 2025-03-18 11:17 | Outpatient (AMB) | payer MEDICARE, SELFPAY ==
--- NOTE | 2025-03-18 11:20 | HO.NEPHOV_ITS ---
Vital Signs 03/18/25 11:23 Height 5 ft 4 in Weight 297 lb BMI 51.0 BP 122/78 Blood Pressure Location Lt brachial Position Sitting Pulse 70 Pulse Source Pulse Oximeter Pulse Oximetry (%) 97 Oxygen Delivery Method Room Air Intake Visit Reasons: 1 mo follow up-[facility] Editorial Writer Required: No Accompanied by: Daughter Allergies codeine Allergy (Verified 03/18/25 11:22) Unknown gabapentin Allergy (Verified 03/18/25 11:22) Unknown isosorbide Allergy (Verified 03/18/25 11:22) Unknown lisinopril Allergy (Verified 03/18/25 11:22) Unknown oxycodone Allergy (Verified 03/18/25 11:22) Unknown HPI Comments Details: Fabiola was seen in follow-up of her acute on chronic kidney disease. She has history of cardiomyopathy and has an AICD in place.Her serum creatinine was higher than baseline with lower serum bicarb and high K. She has history of hyperkalemia . She claims to be compliant with diet and twice a week of K lowering medication. She follows up with her lab technologist closely. She denies any chest pain, shortness of breath, proximal nocturnal dyspnea, orthopnea, ped al edema, hematuria, dysuria, orthostatic symptoms, nausea, vomiting or diarrhea. Her urine output is good. [facility] Medical History (Updated 02/11/25 @ 11:17 by Richar Rojas MD) Hyperkalemia Acute kidney injury Essential (primary) hypertension Chronic kidney disease, stage 3b Surgical History AICD (automatic cardioverter/defibrillator) present Family History Mother Heart disease Brother Heart disease Father Kidney disease Family/Other Kidney disease Social History Alcohol intake: never Patient Tobacco Use Status: Former Tobacco user Review of Systems Const All systems reviewed & are unremarkable except as noted in HPI and below Physical Exam Vital Signs: Last Vital Signs Pulse 70 03/18/25 11:23 BP 122/78 03/18/25 11:23 Pulse Ox 97 03/18/25 11:23 Oxygen Delivery Method Room Air 03/18/25 11:23 BMI result Body Mass Index 51.0 Const General: comfortable and no acute distress Orientation/consciousness: patient oriented x3 HEENT Head: Yes normocephalic Mouth: Normal oral and palatal mucosa present Eyes EOM: EOMs intact bilaterally Neck Neck: Yes supple Resp Auscultation: clear to auscultation bilaterally Cardio Jugular venous distension: no JVD Rate: regular rate GI Palpation (GI): Soft to palpation Auscultation: normal bowel sounds General: Yes no CVA tenderness Back/Spine/Pelvis Back: no CVA tenderness Skin General skin exam: no rashes or lesions noted Neuro General: patient oriented x3 and moves all extremities Extrem General: Yes no pedal edema Results Reviewed Nephrology Results: Sodium, (135-145) 141 mmol/L 03/10/25 Potassium, (3.3-5.1) 5.9 mmol/L H 03/10/25 Chloride, (96-108) 112 mmol/L H 03/10/25 Carbon Dioxide, (22-29) 23 mmol/L 03/10/25 BUN, (9-16) 35 mg/dL H 03/10/25 Creatinine, (0.5-1.4) 2.34 mg/dL H 03/10/25 Calcium, (8.4-10.2) 8.7 mg/dL Δ 11/17/24 Phosphorus, (2.7-4.5) 4.2 mg/dL 11/17/24 PTH Intact, (8.7-77.1) 237.2 pg/mL H 11/17/24 Assessment & Plan Assessment & Plan (1) Essential (primary) hypertension: Code(s): I10 - Essential (primary) hypertension Category: Medical (2) Secondary hyperparathyroidism (of renal origin): Code(s): N25.81 - Secondary hyperparathyroidism of renal origin Category: Medical (3) Vitamin D deficiency: Code(s): E55.9 - Vitamin D deficiency, unspecified Category: Medical (4) Chronic kidney disease, stage 3b: Code(s): N18.32 - Chronic kidney disease, stage 3b Category: Medical (5) Hyperkalemia: Code(s): E87.5 - Hyperkalemia Category: Medical Plan Fabiola has stage III B CKD. She had BRYANT on CKD due to tubular injury. She had myeloperoxidase antibody initially during her workup but was negative subsequently. Her blood pressure has been at goal. She should continue kionex three times a week and should remain on low K diet. She may need more of it. She needs to lose some weight. Her blood pressure is at goal on current medication regimen. She should avoid nonsteroidal anti-inflammatory medications. She is on vitamin-D. She will need activated vitamin-D the near future. I did not make any other medication changes today. All questions answered Orders: Orders Blood Urea Nitrogen 2 Months E55.9 - Vitamin D deficiency, unspecified, E87.5 - Hyperkalemia, I10 - Essential (primary) hypertension, N18.32 - Chronic kidney disease, stage 3b, N25.81 - Secondary hyperparathyroidism of renal origin Electrolytes 2 Months E55.9 - Vitamin D deficiency, unspecified, E87.5 - Hyperkalemia, I10 - Essential (primary) hypertension, N18.32 - Chronic kidney disease, stage 3b, N25.81 - Secondary hyperparathyroidism of renal origin Parathyroid Hormone Intact 2 Months E55.9 - Vitamin D deficiency, unspecified, E87.5 - Hyperkalemia, I10 - Essential (primary) hypertension, N18.32 - Chronic kidney disease, stage 3b, N25.81 - Secondary hyperparathyroidism of renal origin Vitamin D 25-OH Total 2 Months E55.9 - Vitamin D deficiency, unspecified, E87.5 - Hyperkalemia, I10 - Essential (primary) hypertension, N18.32 - Chronic kidney disease, stage 3b, N25.81 - Secondary hyperparathyroidism of renal origin Electrolytes 3 Weeks E55.9 - Vitamin D deficiency, unspecified, E87.5 - Hyperkalemia, I10 - Essential (primary) hypertension, N18.32 - Chronic kidney disease, stage 3b, N25.81 - Secondary hyperparathyroidism of renal origin Blood Urea Nitrogen 3 Weeks E55.9 - Vitamin D deficiency, unspecified, E87.5 - Hyperkalemia, I10 - Essential (primary) hypertension, N18.32 - Chronic kidney disease, stage 3b, N25.81 - Secondary hyperparathyroidism of renal origin Creatinine 3 Weeks E55.9 - Vitamin D deficiency, unspecified, E87.5 - Hyperkalemia, I10 - Essential (primary) hypertension, N18.32 - Chronic kidney disease, stage 3b, N25.81 - Secondary hyperparathyroidism of renal origin Creatinine 2 Months E55.9 - Vitamin D deficiency, unspecified, E87.5 - Hyper kalemia, I10 - Essential (primary) hypertension, N18.32 - Chronic kidney disease, stage 3b, N25.81 - Secondary hyperparathyroidism of renal origin Calcium 2 Months E55.9 - Vitamin D deficiency, unspecified, E87.5 - Hyperkalemia, I10 - Essential (primary) hypertension, N18.32 - Chronic kidney disease, stage 3b, N25.81 - Secondary hyperparathyroidism of renal origin Medications: Changed From sodium polystyrene sulfonate 30 grams PO .twice a week To sodium polystyrene sulfonate 30 grams PO .three times a week 453.6 grams 6RF Coding Level of Care Code Est Pt Level 4 (07204) Diagnoses Essential (primary) hypertension I10 Secondary hyperparathyroidism (of renal origin) N25.81 Vitamin D deficiency E55.9 Chronic kidney disease, stage 3b N18.32 Hyperkalemia E87.5
[2025-03-18 11:23] VITALS: BP 122/78; PULSE 70; O2SAT 97; BMI 51.0
--- OUTSIDE RECORDS SUMMARY | 2025-03-18 14:31 | XMS_ITS | Clinical Summary ---
Author Organization [facility]ly [facility] Address [address] [place] [address] Care Team Providers Care Keyboarding Teacher Name Role Phone Unknown Primary Care Provider [phone] Allergies Active Allergy Reactions Criticality Noted Date [...] (Females,Ages 65 and older) 09/21/2023 Influenza Vaccine 01/01/2025 COVID-19 Vaccine (3 - 2024-2 6 season) 2025 10/24/2020, 09/26/2020 RSV Vaccine 50 years and older and Patients (1 - 1-dose 75+ series) 2033 Hepatitis B Vaccines Aged Out No long er eligible based on patient's age to complete this topic Insurance [facility] [employer] on file Care Teams Keyboarding Teacher Relationship Specialty Start Date End Date Unknown Unknow Provider Address PCP - General 12/20/21
--- OUTSIDE RECORDS SUMMARY | 2025-03-18 14:31 | XMS_ITS | Clinical Summary ---
Author Organization [facility] Address [address] [place] [address] Care Team Providers Care Surgical Nurse Practitioner Name Role Phone Nilay Marquez Primary Care Provider [phone] Source Comments PLEASE NOTE, if this patient [...] Other reaction(s): vomiting Other Reaction(s): vomiting Medications walkerIndications :Osteoarthritis, unspecified osteoarthritis type, unspecified site,Dizziness Patient with OA, please dispense one walker. 1 Each Active amLODIPine (NORVASC) 10 mg tablet PRESCRIBED BY CARDIOLOGY Active mexiletine 150 mg cap PRESCRIBED BY CARDIOLOGY Active albuterol sulfate 90 mcg/actuation inhalerIndication s:Asthma-chronic obstructive pulmonary disease overlap syndrome Inhale 2 Puffs into the lungs every 4 (four) hours as needed for shortness of breath 18 g 1 Active budesonide-formot Loni (SYMBICORT) 160-4.5 mcg/actuation inhalerIndication s:Asthma-chronic obstructive pulmonary disease overlap syndrome Inhale 2 Puffs into the lungs 2 (two) times daily 10.2 g 5 Active nebulizer and compressorIndicat ions:Asthma-chron ic obstructive pulmonary disease overlap syndrome Use with duoneb solution as needed for copd exacerbation. Lifetime use. Dx:COPD with asthma ([facility]) [J44.9], 1 Each Active nebulizer accessoriesIndica tions:Asthma-soa architect eliza obstructive pulmonary disease overlap syndrome Use with duoneb solution as needed for copd exacerbation. Lifetime use. Dx:COPD with asthma ([facility]) [J44.9], 2 Each Active mexiletine 150 mg cap Take 300 mg by mouth Active meclizine (ANTIVERT) 25 mg tabletIndications :Dizziness TAKE 1 TABLET BY MOUTH ONCE DAILY NEEDED FOR NAUSEA OR DIZZINESS 30 Tablet Active LORazepam (ATIVAN) 0.5 mg tabletIndications :Anxiety,Primary insomnia Take 1 Tablet by mouth nightly at bedtime as needed for anxiety or sleep 30 Tablet 1 Active budesonide-formot Loni (SYMBICORT) 160-4.5 mcg/actuation inhalerIndication s:Chronic obstructive pulmonary disease with acute lower respiratory infection Inhale 2 Puffs into the lungs 2 (two) times daily 10.2 g 1 Active carvediloL (COREG) 25 mg tabletIndications :Heart failure with reduced ejection fraction,Hyperten sive renal disease Take 1 Tablet by mouth once daily 60 Tablet 1 Active traMADoL (ULTRAM) 50 mg tablet Take 1 Tablet by mouth 2 (two) times daily as needed for pain 30 Tablet 1 Active ipratropium-albut Loni (DUONEB) 0.5 mg-3 mg(2.5 mg base)/3 mL nebulizer solutionIndicatio ns:Asthma-chronic obstructive pulmonary disease overlap syndrome Take 3 mL by nebulization 4 (four) times daily 90 mL 1 Active SPS, WITH SORBITOL, 15-20 gram/60 mL susp TAKE 60 ML BY MOUTH ONCE A WEEK DIRECTED FOR 3 MONTHS 023 Active hydrALAZINE (APRESOLINE) 50 mg tablet Take 50 mg by mouth 3 (three) times daily Active amLODIPine (NORVASC) 10 mg tablet Take 10 mg by mouth daily Active aspirin [address] tabletIndications :Essential hypertension Take 1 Tablet by mouth once daily 90 Tablet 1 023 Active propranoloL (INDERAL) 40 mg tablet TAKE ONE TABLET BY MOUTH THREE TIMES DAILY WITH 60 MG TABLET Active propranoloL (INDERAL) 60 mg tablet TAKE ONE TABLET BY MOUTH THREE TIMES DAILY WITH 40 MG TABLET 023 Active isosorbide mononitrate (IMDUR) 60 mg 24 hr tablet Take 60 mg by mouth once daily Active amiodarone (PACERONE) 200 mg tablet TAKE ONE TABLET BY MOUTH ONCE DAILY WITH FOOD Active mexiletine 200 mg cap Take 2 Capsules by mouth 2 (two) times daily Active ondansetron ODT (ZOFRAN-ODT) 4 mg disintegrating tabletIndications :Drug-induced nausea and vomiting Take 1 Tablet by mouth every 8 (eight) hours as needed for nausea 9 Tablet 2 023 Active furosemide (LASIX) 20 mg tabletIndications :Severe obesity,Heart failure with reduced ejection fraction,Chronic obstructive pulmonary disease with acute lower respiratory infection Take 1 Tablet by mouth once daily for 90 days 30 Tablet 2 023 Active acetaminophen (TYLENOL 8 HOUR) 650 mg CR tablet Take 1 Tablet by mouth every 8 (eight) hours as needed for pain 60 Tablet 1 024 Active mexiletine 200 mg cap Take 400 mg by mouth 023 Active tirzepatide, weight loss, (ZEPBOUND) 2.5 mg/0.5 mL pnijIndications:H FrEF (heart failure with reduced ejection fraction),Severe obesity,Non-ische ifeoma cardiomyopathy,Ch ronic bronchitis, unspecified chronic bronchitis type Inject 2.5 mg into the skin once a week 2 mL 1 024 Active WEGOVY 0.25 mg/0.5 mL pnijIndications:S evere obesity,HFrEF (heart failure with reduced ejection fraction),Pulmona ry emphysema, unspecified emphysema type,Primary hypertension INJECT 1/2 (ONE-HALF) ML SUBCUTANEOUSLY ONCE A WEEK 2 mL 2 025 Active atorvastatin (LIPITOR) 40 mg tabletIndications :Hypercholesterem ia Take 1 tablet by mouth once daily 90 Tablet 025 Active omeprazole (PRILOSEC) [address] capsuleIndication s:Gastroesophagea l reflux disease, unspecified whether esophagitis present TAKE 1 CAPSULE BY MOUTH ONCE DAILY IN THE MORNING BEFORE BREAKFAST 90 Capsule 025 Active levothyroxine 175 mcg tabletIndications :Hypothyroidism, unspecified type Take 1 tablet by mouth once daily 90 Tablet 025 Active levothyroxine 175 mcg tabletIndications :Hypothyroidism, unspecified type Take 1 tablet by mouth once daily 90 Tablet 025 2024 Discontinued Active Problems Problem Noted Date Diagnosed [...] (heart failure with reduced ejection fract ion) 07/03/2021 History of ventricular tachycardia 07/03/2021 Hypothyroidism 07/03/2021 Obstructive sleep apnea 07/03/2021 COPD type A 07/03/2021 Non-ischemic cardiomyopathy 06/21/2021 Overview (05/19/2024): 04/06/21 Cath @ [facility] with Dr. Price - Findings consistent with non-ischemic cardiomyopathy of unclear chronicity and VT. Continue anti-rhythmic therapy and consider ICD. Syncope 06/21/2021 Ventricular tachycardia 06/21/2021 Overview (05/19/2024): 04/21/21 Device Implant @ [facility] with Dr. Parker - [facility] [place] Dual Chamber AICD Severe obesity 05/31/2021 Chronic kidney disease, stage 3b 03/27/2021 High blood cholesterol 01/30/2021 Anxiety 01/30/2021 Osteoarthritis [...] nephrology Osteoarthrosis 08/22/2020 Acute nontraumatic kidney injury 08/22/2020 Hyperkalemia 08/22/2020 Hypertensive renal disease 08/22/2020 Allergic rhinitis 07/11/2020 Resolved Problems Problem Noted Date Diagnosed Date Resolved Date Hypercholesterolemia 08/22/2020 023 Immunizations Immunization Administration Dates Next Due Moderna COVID-19 Vaccine, [...] e alcohol) Social Connections Answer Date Recorded How often do you feel lonely or isolated from th ose around you? 1 05/19/2024 Financial Resource Strain Answer Date R ecorded Hard to pay for: Food 2 05/19/2024 Stress Answer Date Recorded Do you feel these kinds of stress these days? 1 05/19/2024 Physical Activity Answer Date Recorded Physical Activity 0 02/23/2020 Food Insecurity Answer Date Recorded Hard to pay for: Food 2 05/19/2024 Transportation Needs Answer Date Record ed Hard to pay for: Transportation 1 05/19/2024 Housing Stability Answer Date Recorded Hard to pay for: Rent/Mortgage payment 1 05/19/2024 Safety and Environment Answer Date Matteo rded Safety 0 08/23/2022 Utilities Answer Date Recorded Hard to pay for: Utilities 2 05/19 Employment Answer Date Recorded Employment 0 02/23/2020 [...] 70 05/19/2024 2:51 PM EST Temperature 37.2 C (98.9 F) 05/19/2024 2:51 PM EST Respiratory Rate 16 05/19/2024 2:51 PM EST Oxygen Saturation 95% 05/19/2024 2:51 PM EST Inhaled Oxygen Concentration - - Weight 112.5 kg (248 lb) 01/15/2023 9:35 AM EDT Height 157.5 cm (5' 2 ) 03/07/2023 5:07 PM EDT Body Mass Index 45.36 01/15/2023 9:35 AM EDT Plan of Treatment Health Maintenance Due Date Last Done Comments Medicare Annual Wellness Visit 1976 Imm-DTaP/Tdap/Td (1 - Tdap) 1977 Imm-Pneumococcal 50+ (1 of 2 - PCV) 1977 CT Colonography 09/21/2003 Colonoscopy 09/21/2003 FIT/gFOBT 09/21/2003 Fecal DNA 09/21/2003 Flexible Sigmoidoscopy 09/21/2003 Imm-Zoster, Recombinant (1 of 2) 2008 Tobacco Screening 05/31/2022 05/31/2021, 05/01/2021 Bone Density Screening 09/21/2023 Falls Prevention 09/21/2023 05/31/2021 Alcohol and Drug Screen 06/03/2024 05/19/20 24, 08/23/2022, 08/23/2022, Additional history exists Depression Annual Screen 06/03/2024 05/19/2024, 03/04 [id number] ( - season) 2025 021, 09/26/2020 Imm-Influenza (#1) 2025 Lipid Screening 05/19/2025 05/19/2024, 01/01, 01/15/2023, Additional history exists TSH Monitoring 09/23/2025 09/23/2024, 05/03, 03/06/2023, Additional history exists Diabetes Screening 01/15/2026 01/15/2023, 0 07/25/2022, 07/25/2022, Additional history exists Hepatitis C Screening Completed 07/26/2020 Breast Cancer Screening (Mammogram) Discontinued Colorectal Cancer Screening Discontinued Procedures Procedure Name Priority Date/Time Associated Diagnosis Comments LAB SCANNED DOCUMENT 03/10/2025 3:00 AM EDT HEALTH HISTORY SCANNED DOCUMENT 02/17/2025 3:00 AM EDT REFERRAL SCANNED DOCUMENT 02/11/2025 3:00 AM EDT HEALTH HISTORY SCANNED DOCUMENT 01/17/2025 3:00 AM EDT THYROID CASCADING REFLEX PANEL Routine 09/23/2024 11:24 AM EDT Hypothyroidism, unspecified type LIPID PANEL Routine 05/19/2024 3:27 PM EST Financial difficulties Primary hypertension Hypothyroidism, unspecified type COMPREHENSIVE METABOLIC PANEL Routine 01/15/2023 10:12 AM EDT Chronic kidney disease, unspecified CKD stage HEPATITIS A,B,C PANEL Routine 07/26/2020 2:48 PM EST Routine adult health maintenance from Last 3 Months or Most Recently Relevant to Health Maintenance Results * LAB SCANNED DOCUMENT (03/10/2025 3:00 AM EDT) 03/10/2025 3:00 AM EDT Nilay GONZALEZ SCAN LAB Final Result * HEALTH HISTORY SCANNED DOCUMENT (02/17/2025 3:00 AM EDT) Only the most recent of2 resultswithin the time period is included. 02/17/2025 3:00 AM EDT [facility] Provider Default SCAN OTHER ORDERS Final Re sult * REFERRAL SCANNED DOCUMENT (02/11/2025 3:00 AM EDT) 02/11/2025 3:00 AM EDT Nilay Marquez PA SCAN REFERRAL Final Result * THYROID CASCADING REFLEX PANEL (09/23/2024 11:24 AM EDT) TSH 1.01 0.40 - 4.50 mIU/L [facility] Blood Blood / Unknown 09/23/2024 1 1:24 AM EDT 09/23/2024 11:24 AM EDT Alvarez Garcia [facility] - BLOOD DRAW Final Re sult [facility] [address] [address], [facility] [address] [place] [address] * (ABNORMAL) LIPID PANEL (05/19/2024 3:27 PM EST) CHOLESTEROL, TOTAL 216(H) <200 mg/dL [employer] HDL CHOLESTEROL 46(L) > OR = 50 mg/dL [employer] TRIGLYCERIDES 166(H) <150 mg/dL [employer] LDL-CHOLESTEROL 140(H) 99 mg/dL (calc) [employer] Comment: Reference range: <100 Desirable range <100 mg/dL for primary prevention; <70 mg/dL for patients with CHD or diabetic patients with > or = 2 CHD risk factors. LDL-C is now calculated using the Yumiko calculation, which is a validated novel method providing better accuracy than the Friedewald equation in the estimation of LDL-C. Sabino SS et al. NERIS. 2013;310(19): 7614-4070 (http://education.Myagi/faq/JAX546) CHOL/HDLC RATIO 4.7 <5.0 (calc) [employer] [facility] NON-HDL CHOLESTEROL 170(H) <130 mg/dL (calc) [employer] [facility] Comment: For patients with diabetes plus 1 major ASCVD risk factor, treating to a non-HDL-C goal of <100 mg/dL (LDL-C of <70 mg/dL) is considered a therapeutic option. Blood Blood / Unknown 05/19/2024 3 :27 PM EST 05/19/2024 3:27 PM EST Nilay GONZALEZ LAB - BLOOD DRAW Final Result [facility] [address] [address], [facility] [address] [place] [address] * (ABNORMAL) COMPREHENSIVE METABOLIC PANEL (01/15/2023 10:12 AM EDT) GLUCOSE 112(H) 65 - 99 mg/dL [employer] [facility] Comment: Fasting reference interval For someone without known diabetes, a glucose value between 100 and 125 mg/dL is consistent with prediabetes and should be confirmed with a follow-up test. UREA NITROGEN (BUN) 22 7 - 25 mg/dL [facility] CREATININE (blood) 1.87(H) 0.50 - 1.05 mg/dL [facility] EGFR 30(L) > OR = 60 mL/min/1. 73m2 [facility] BUN/CREATININE RATIO 12 6 - 22 (calc) [facility] SODIUM 141 135 - 146 mmol/L [facility] POTASSIUM 5.1 3.5 - 5.3 mmol/L [facility] CHLORIDE 111(H) 98 - 110 mmol/L [facility] CARBON DIOXIDE 24 20 - 32 mmol/L [facility] CALCIUM 9.1 8.6 - 10.4 mg/dL [facility] PROTEIN, TOTAL 5.5(L) 6.1 - 8.1 g/dL [facility] ALBUMIN 3.8 3.6 - 5.1 g/dL [facility] GLOBULIN 1.7(L) 1.9 - 3.7 g/dL (calc) [facility] ALBUMIN/GLOBULI N RATIO 2.2 1.0 - 2.5 (calc) [facility] BILIRUBIN, TOTAL 0.4 0.2 - 1.2 mg/dL [facility] ALKALINE PHOSPHATASE 78 37 - 153 U/L [facility] AST 16 10 - 35 U/L [facility] ALT 20 6 - 29 U/L [facility] Blood Blood / Unknown 01/15/2023 1 0:12 AM EDT 01/15/2023 10:13 AM EDT Nilay GONZALEZ LAB - BLOOD DRAW Edited Result - Final [facility] [address] [address], [facility] [address] [address] * (ABNORMAL) HEPATITIS A,B,C PANEL (07/26/2020 2:48 PM EST) HEPATITIS B SURFACE ANTIBODY NEGATIVE NEGATIVE [employer] [facility] HEPATITIS B SURFACE ANTIGEN NEGATIVE NEGATIVE [facility] Comment: Over the counter supplements containing high doses of biotin may interfere with this assay. If interference is suspected, patients shoud be retested after refraining from biotin supplements for 72 hours. HEPATITIS C VIRUS DIAGNOSTIC NEGATIVE NEGATIVE [facility] HEPATITIS B CORE ANTIBODY NEGATIVE NEGATIVE [facility] HEPATITIS A ANTIBODY TOTAL POSITIVE(A) NEGATIVE [facility] Comment: Over the counter supplements containing high doses of biotin may interfere with this assay. If interference is suspected, patients shoud be retested after refraining from biotin supplements for 72 hours. Blood Blood / Unknown 07/26/2020 2 :48 PM EST 07/26/2020 6:23 PM EST Narrative [employer] - 07/26/2020 7:37 PM EST [id number], [place] [address] Outreach Worker - Delphine Ríos MD PT ID [id number] ORD# [id number] Nilay GONZALEZ LAB - BLOOD DRAW Edited Result - Final Performing Organization Address City/State/[facility] Co de Phone Number [address] [address], from Last 3 Months or Most Recently Relevant to Health Maintenance Insurance MEDICARE - [place] Care Teams Surgical Nurse Practitioner Relationship Specialty Start Date End Date Nilay Marquez PA [address] [place] [address] PCP - General Internal Medicine 02/23/20
--- OUTSIDE RECORDS SUMMARY | 2025-03-18 14:31 | XMS_ITS | Clinical Summary ---
Author Organization [facility] Address [address] [place] [address] Phone Care Team Providers Care Jewelry Consultant Name Role Phone Nilay Marquez MD Primary Care Provider [phone] Allergies Active Allergy Reactions Criticality Noted Date [...] patient's age to complete this topic Insurance [facility] Medicare Care Teams Jewelry Consultant Relationship Specialty Start Date End Date Nilay Marquez MD [facility] [place] [address] PCP - General Physician Database Administration Manager 08/22/20
--- OUTSIDE RECORDS SUMMARY | 2025-03-18 14:31 | XMS_ITS | Clinical Summary ---
Author Organization [address] [place] [address] Address [address] [facility] [place] [address] Phone Care Team Providers Care Pilot Captain Name Role Phone Nilay Marquez Primary Care Provider [phone] Allergies Active Allergy Reactions Criticality Noted Date [...] take 2 tab as needed for pain [id number] PRT 08/01/19 24 Active hydrALAZINE (APRESOLINE) 50 [...] day. 180 tablet 3 09/17/19 25 Active mexiletine (MEXITIL) 200 mg capsule [...] 30 each 2 01/27/20 25 025 Active isosorbide mononitrate (IMDUR) 60 mg 24 hr tablet Take 1 tablet by mouth once daily 30 tablet 11 02/24/20 25 Active isosorbide mononitrate (IMDUR) 60 mg 24 hr tablet Take 1 tablet by mouth once daily 30 tablet 1 12/26/19 25 025 Discontinued Active Problems Problem Noted Date Diagnosed Date History of ventricular tachycardia 08/02/2023 COPD type A ([facility] V24, [facility] V28) 3 Nocturnal hypoxia 08/04/2021 Overview (08/02/2023): Overnight oximetry on 07/23/2021 on NIV: 1. Lowest oxygen 81% 2. Oxygen level under 88% 6.5 minutes. 3. Basal oxygen 94%. No supplemnetal oxygen needed. HFrEF (heart failure with re duced ejection fraction) ([facility] V24, [facility] V28) 07/23/2021 Severe obesity (CMS/HCC V24, CMS/HCC V28) 2021 Hypertension 06/21/2021 Non-ischemic cardiomyopathy (CMS/HCC V24, CMS/HC C V28) 06/21/2021 Overview (08/02/2023): 04/06/21 Cath @ [facility] with Dr. Price - Findings consistent with non-ischemic cardiomyopathy of unclear chronicity and VT. Continue anti-rhythmic therapy and consider ICD. Syncope 06/21/2021 Ventricular tachycardia (CMS/HCC V24, CMS/HCC V2 8) 06/21/2021 Overview (08/02/2023): 04/21/21 Device Implant @ [facility] with Dr. Parker - [employer] Dual Chamber AICD Anxiety 01/30/2021 CKD (chronic kidney disease) 01/30/2021 High cholesterol 01/30/2021 Hypothyroidism 01/30/2021 Osteoarthritis of both knees 01/30/2021 Encounters Date Type Department Care Team Description 03/03/2025 6:20 AM EDT Ancillary Procedure [facility] Cardiology [facility] [address] [place] [address] 01/26/2025 12:50 PM EDT Ancillary Procedure [facility] [address] [place] [address] 01/26/2025 Telephone [facility] Cardiology [facility] [address] [place] [address] Bora Ruiz MD 01/07/2025 Telephone [facility] Cardiology [facility] [address] [place] [address] Cheryl Moreira NP 12/28/2024 Telephone Pulmonology - [place] [address] [place] [address] Marguerite Jimenez NP 12/26/2024 1:20 AM EDT Ancillary Procedure [facility] [address] [facility] [address] [place] [address] 12/25/2024 Telephone Pulmonology [facility] [address] [facility] [address] [place] [phone] [place] 12/23/2024 1:15 PM EDT Ancillary Procedure Pulmonology [facility] [address] [facility] [address] [place] [phone] Pulmonary emphysema, unspecified emphysema type (CMS/HCC V24, CMS/HCC V28); HFrEF (heart failure with reduced ejection fraction) (CMS/HCC V24, CMS/HCC V28) 12/22/2024 Telephone Pulmonology [facility] [address] [facility] [address] [place] [phone] Marguerite Jimenez NP 12/16/2024 3:10 PM EDT Office Visit Pulmonology [facility] [address] [facility] [address] [place] [phone] Marguerite Jimenez NP Pulmonary emphysema, unspecified emphysema type (CMS/HCC V24, CMS/HCC V28) (Primary Dx); HFrEF (heart failure with reduced ejection fraction) (CMS/HCC V24, CMS/HCC V28); Non-ischemic cardiomyopathy (CMS/HCC V24, CMS/HCC V28); Nocturnal hypoxia; Severe obesity (CMS/HCC V24, CMS/HCC V28) from Last 3 Months Surgical History Surgery Date Site/Laterality Comments CARDIAC CATHETERIZATION Medical History Medical History Date Comments Anxiety Hyperlipidemia Hypercapnic respiratory failure (CMS/HCC V24, CM S/HCC V28) Hypothyroidism Syncope Cardiomyopathy (CMS/HCC V24, CMS/HCC V28) Hypertension Ventricular tachycardia (CMS/HCC V24, CMS/HCC V2 8) Chronic kidney disease CHF (congestive heart failure) (CMS/HCC V24, CMS /HCC V28) Family History Medical History Relation Name [...] Description 03/25/2025 1:10 PM EDT Office Visit [facility] - [facility] [address] [facility] [address] [place] [address] Cheryl Moreira NP [address] [place] [phone] 06/23/2025 1:00 PM EST Office Visit Pulmonology - [place] [address] [facility] [address] [place] [phone] Marguerite Jimenez NP [address] [place] [address] Health Maintenance Due Date Last Done Comments Breast Cancer Screening 1960 Colorectal Cancer Screening: Colonoscopy 1960 DTaP,Tdap,and Td Vaccines (1 - Tdap) 1977 Pneumococcal Vaccine: 50+ Years (1 of 2 - PCV) 1977 Zoster Vaccines (1 of 2) 1977 RSV Immunization Adult Patients (1 - Risk 50-74 years 1-dose series) 2008 COVID-19 Vaccine (3 - Moderna risk series) 11/21/2020 10/24/2020, 09/26/2020 Medicare Annual Wellness Visit 05/12/2022 Osteoporosis Screening [...] this topic Medical Devices Implanted Type Area Composite Engineer Device Identifier Shelf Expiration Date Model / Serial / Lot Anyit-Stjan [id number] Arabella) [id number] Implanted:04/03 (Quantity not on file) Cardiac ICD [facility] [id number] ARABELLA ) DR Figueroa [id number] / Procedures Procedure Name Priority Date/Time Associated Diagnosis Comments CARDIAC DEVICE CHECK- REMOTE- MURJ Routine 03/03/2025 6:15 AM EDT B-TYPE NATRIURETIC PEPTIDE Routine 01/27/2025 9:26 AM EDT HFrEF (heart failure with reduced ejection fraction) (CMS/HCC V24, CMS/HCC V28) THYROID STIMULATING HORMONE WITH REFLEX TO FREE T4 AND FREE T3 Routine 01/27/2025 9:26 AM EDT Ventricular tachycardia (CMS/HCC V24, CMS/HCC V28) intermediate card tender current use of amiodarone COMPREHENSIVE METABOLIC PANEL [...] reduced ejection fraction) (CMS/HCC V24, CMS/HCC V28) LIPID PANEL Routine 01/15/2023 HEPATITIS C SCREENING Routine 07/26/2020 from Last 3 Months or Most Recently Relevant to Health Maintenance Results * Cardiac device check - Remote- MURJ (03/03/2025 6:15 AM EDT) Only the most recent of3 resultswithin the time period is included. Date Time Interrogation Session [id number] CV DEVICE CHECK Type Interrogation Session Remote Scheduled CV DEVICE CHECK Implantable Pulse Generator Composite Engineer [employer] CV DEVICE CHECK Implantable Pulse Generator Type ICD CV DEVICE CHECK Implantable Pulse Generator Model [id number] Lawrence MEMBRENO (TM) CV DEVICE CHECK Implantable Pulse Generator Serial Number [id number] CV DEVICE CHECK Implantable Pulse Generator Implant Date [id number] CV DEVICE CHECK Battery Remaining Percentage 31.00 CV DEVICE CHECK Battery Remaining Longevity 30.0 CV DEVICE CHECK Battery Voltage 2.930 CV D EVICE CHECK Battery DAY LIGHT RELIEF OPERATOR Trigger 2.620 CV DEVICE CHECK Battery Status Middle of Service CV DEVICE CHECK Capacitor Charge Time 8.400 CV DEVICE CHECK Dez Statistic RA Percent Paced 96.00 CV DEVICE CHECK Dez Statistic RV Percent Paced 2.60 CV DEVICE CHECK Atrial Tachy Statistic AT/AF [place] Percent 0.00 CV DEVICE CHECK Lead Channel Sensing Intrinsic Amplitude 3.100 CV DEVICE CHECK Lead Channel Setting Sensing Sensitivity 0.30 CV DEVICE CHECK Lead Channel Impedance Value 350 CV DEVICE CHECK Lead Channel Pacing Threshold Amplitude 0.875 CV DEVICE CHECK Lead Channel Pacing Threshold Pulse Width 0.5 CV DEVICE CHECK Lead Channel RA Pacing Threshold Date 2025-02-20 CV DEVICE CHECK Lead Channel Setting Pacing [...] CHECK Lead Channel RV Pacing Threshold Date 2025-02-20 CV DEVICE CHECK Lead Channel Setting Pacing [...] 0 CV DEVICE CHECK Shock Measured Impedance 82 CV DEVICE CHECK Zone Setting Type Category [...] Anatomical Region Laterality Modality Device Interroga tion 02/20/2025 2:01 AM EDT Impressions 03/02/2025 12:25 PM EDT Heart Failure Diagnostic: Stable * Heart failure diagnostics assessed through the device * Status: Stable * No overt HF present Narrative Procedure Note Bora Ruiz MD - 03/03/2025 IMPRESSION: Heart Failure Diagnostic: Stable * Heart failure diagnostics assessed through the device * Status: Stable * No overt HF present Bora Ruiz MD CV IMPLANTABLE CARDIAC DEVICE PROCEDURES Final Result * Thyroid stimulating hormone with reflex to free t4 and free t3 (01/27/2025 9:26 AM EDT) TSH 2.95 0.40 - 4.00 mcIU/mL LAB CHEMISTRY METHOD 01/27/2025 4:55 PM EDT [facility] Blood Venous blood specimen / Unknown Venipuncture / Unknown 01/27/2025 9:26 AM EDT 01/27/2025 9:26 AM EDT Cheryl Moreira CHARGING CRANE OPERATOR LAB BLOOD ORDERABLES Final R esult [facility] [address] [place] [address], * B-type natriuretic peptide (01/27/2025 9:26 AM EDT) BNP 91 <=100 pcg/mL LAB CHEMISTRY METHOD 01/27/2025 3:08 PM EDT [facility] Blood Venous blood specimen / Unknown Venipuncture / Unknown 01/27/2025 9:26 AM EDT 01/27/2025 9:26 AM EDT Cheryl Moreira CHARGING CRANE OPERATOR LAB BLOOD ORDERABLES Final R esult [facility] [address] [place] [address], * (ABNORMAL) Comprehensive metabolic panel (01/27/2025 9:26 AM EDT) Sodium 142 133 - 145 mmol/L LAB CHEMISTRY METHOD 01/27/2025 4:36 PM EDT [facility] Potassium 5.0 3.5 - 5.5 mmol/L LAB CHEMISTRY METHOD 01/27/2025 4:36 PM [facility] Chloride 114(H) 96 - 110 mmol/L LAB CHEMISTRY METHOD 01/27/2025 4:36 PM [facility] CO2 24 21 - 32 mmol/L LAB CHEMISTRY METHOD 01/27/2025 4:36 PM [facility] Anion Gap 4 3 - 11 LAB CHEMISTRY METHOD 01/27/2025 4:36 PM [facility] Glucose 93 70 - 100 mg/dL LAB CHEMISTRY METHOD 01/27/2025 4:36 PM [facility] BUN 31(H) 5 - 25 mg/dL LAB CHEMISTRY METHOD 01/27/2025 4:36 PM [facility] Creatinine 2.25(H) 0.50 - 1.10 mg/dL LAB CHEMISTRY METHOD 01/27/2025 4:36 PM [facility] eGFR 24(L) >=60 mL/min/1. 73m2 LAB CHEMISTRY METHOD 01/27/2025 4:36 PM [facility] Comment:Calculation based on the Chronic Kidney Disease Epidemiology Collaboration (CKD-EPI) equation refit without adjustment for race. BUN/Creatinine Ratio 13.8 LAB CHEMISTRY METHOD 01/27/2025 4:36 PM [facility] Calcium 8.5 8.5 - 10.5 mg/dL LAB CHEMISTRY METHOD 01/27/2025 4:36 PM EDT [facility] AST (SGOT) 33 10 - 42 unit/L LAB CHEMISTRY METHOD 01/27/2025 4:36 PM EDT [facility] ALT (SGPT) 51 10 - 60 unit/L LAB CHEMISTRY METHOD 01/27/2025 4:36 PM EDT [facility] Alkaline Phosphatase 101 42 - 121 unit/L LAB CHEMISTRY METHOD 01/27/2025 4:36 PM EDT [facility] Total Protein 5.9(L) 6.0 - 8.0 g/dL LAB CHEMISTRY METHOD 01/27/2025 4:36 PM EDT [facility] Albumin 3.1(L) 3.2 - 5.0 g/dL LAB CHEMISTRY METHOD 01/27/2025 4:36 PM T [facility] Total Bilirubin 0.4 0.0 - 1.4 mg/dL LAB CHEMISTRY METHOD 01/27/2025 4:36 PM EDT [facility] Blood Venous blood specimen / Unknown Venipuncture / Unknown 01/27/2025 9:26 AM EDT 01/27/2025 9:26 AM EDT Cheryl Moreira NP LAB BLOOD ORDERABLES Final R esult [facility] [address] [place] [address], * Lipid panel (01/15/2023) LDL/HDL Ratio 0 Comment:No Interpretation, A bstracted Triglycerides 0 mg/dL Comment:No Interpretation, A bstracted Cholesterol 0 mg/dL Comment:No Interpretation, A bstracted HDL 0 mg/dL Comment:No Interpretation, A bstracted LDL Cholesterol 0 mg/dL Comment:No Interpretation, A bstracted Blood Venous blood specimen / Unknown Historical Provider MD LAB BLOOD ORDERABLES Sylvia l Result * Hepatitis C Screening (07/26/2020) Hepatitis C Screening Abstracted us Historical Provider HEALTH MAINTENANCE Final Result from Last 3 Months or Most Recently Relevant to Health Maintenance Insurance [employer] MEDICARE Care Teams Pilot Captain Relationship Specialty Start Date End Date Nilay Marquez PA [address] [place] [address] PCP - General Internal Medicine 04/10/21
--- OUTSIDE RECORDS SUMMARY | 2025-03-18 14:31 | XMS_ITS | Clinical Summary ---
Author Organization [facility] Address [address] [phone] Phone Care Team Providers Care Estimating Engineer Name Role Phone Nilay Marquez Primary Care Provider + Social History Tobacco Use Types Packs/Day Years Used Date Smoking Tobacco: Never Assessed Education Answer Date Recorded Are you interested in more education? Not on boie e 09/29/2022 Are you concerned about learning? [...] file Medical Devices Not on file Insurance [facility] NON NSP PCP [facility] CONNECTORCARE D[employer] NON NSPG PCP [facility] [employer] NON NSPG PCP [employer] NON NSPG PCP [employer] NON NSPG PCP S[employer] NON NSPG PCP [employer] Care Teams Estimating Engineer Relationship Specialty Start Date End Date Nilay Marquez PA [email or web address] PCP - General 12/31/22 Additional Source Comments The information contained in this document represents components of the legal health record. It is not the complete legal health record.[facility]
== END 2025-03-18 11:48 | disposition home or self-care (01) ==
LOC: HO.HKAS 11:18
PROVIDERS: PCP Physician Assistant; Visit Provider Internal Medicine Nephrology
DX: I10 Essential (primary) hypertension (principal); N25.81 Secondary hyperparathyroidism of renal origin; E55.9 Vitamin D deficiency, unspecified; N18.32 Chronic kidney disease, stage 3b; E87.5 Hyperkalemia
CPT/HCPCS: 99214

== ENCOUNTER → 2025-03-18 11:17 | Outpatient (BNVA) | payer MEDICARE, SELFPAY | PROVIDERS: PCP Physician Assistant; Visit Provider Internal Medicine Nephrology | DX: I12.9 Hypertensive chronic kidney disease with stage 1 through stage 4 chronic kidney disease, or unspecified chronic kidney disease (principal); N18.32 Chronic kidney disease, stage 3b; N25.81 Secondary hyperparathyroidism of renal origin; E55.9 Vitamin D deficiency, unspecified; E87.5 Hyperkalemia | CPT/HCPCS: 99212 ==

== ENCOUNTER 2025-04-08 10:21 | Outpatient (REF) | payer MEDICARE, SELFPAY ==
--- OUTSIDE RECORDS SUMMARY | 2025-04-08 12:16 | XMS_ITS | Clinical Summary ---
Author Organization [facility] Address [address] [place] [address] Care Team Providers Care Electrolysis Engineer Name Role Phone Unknown Primary Care Provider [phone] Allergies Active Allergy Reactions Criticality Noted Date [...] patient's age to complete this topic Insurance [facility] on file Care Teams Electrolysis Engineer Relationship Specialty Start Date End Date Unknown Unknow Provider Address PCP - General 12/20/21
--- OUTSIDE RECORDS SUMMARY | 2025-04-08 12:16 | XMS_ITS | Clinical Summary ---
Author Organization [facility] Address [address] [phone] Phone Care Team Providers Care Clamp Forklift Operator Name Role Phone Nilay Marquez Primary [...] file Medical Devices Not on file Insurance [facility] NON NSP PCP [facility] CONNECTORCARE D[employer]ENSE NON NSPG PCP [employer] [employer] NON NSPG PCP [employer] NON NSPG PCP [employer] NON NSPG PCP S[employer] NON NSPG PCP [employer] Care Teams Clamp Forklift Operator Relationship Specialty Start Date End Date Nilay Marquez PA [email or web address] PCP - General 12/31/22 Additional Source Comments The information contained in this document represents components of the legal health record. It is not the complete legal health record.[facility]
[2025-04-08 13:34] LABS: Anion Gap 11 (12-20); Blood Urea Nitrogen 30 mg/dL (9-16); Carbon Dioxide 25 mmol/L (22-29); Chloride 112 mmol/L (96-108); Estimated Glomerular Filt Rate 20; Potassium 4.6 mmol/L (3.3-5.1); Sodium 143 mmol/L (135-145)
== END 2025-04-08 10:22 | disposition home or self-care (01) ==
LOC: HO.HKASLDS 10:21
PROVIDERS: PCP Physician Assistant; Visit Provider Internal Medicine Nephrology
DX: I12.9 Hypertensive chronic kidney disease with stage 1 through stage 4 chronic kidney disease, or unspecified chronic kidney disease (principal); N18.32 Chronic kidney disease, stage 3b; N25.81 Secondary hyperparathyroidism of renal origin; E55.9 Vitamin D deficiency, unspecified; E87.5 Hyperkalemia
CPT/HCPCS: 36415; 80051; 82565; 84520